=== PATIENT | female | born 1945 | race Caucasian/White ===

== ENCOUNTER → 2017-05-31 | Outpatient (CLI) | payer MEDICARE ==
[~2017-05-31] VITALS: Ht 160 cm; Wt 72.6 kg
[~2017-05-31] MED LIST: AMLO1CAP10 PO; APIX5TAB PO; CEPH500C PO; DILT120C80 PO; DILT60TA PO; HYDR25TA9 PO; LIDOCAINE 1% / SOD BICARB 8.4% 20 ML VIAL. IJ ONE; PENI500T PO
[2017-05-31 08:47] LABS: BASO # 0.1 x10^3/uL (0.0-0.2); BASO % 1 % (0-3); EOS % 0 % (0-3); HEMATOCRIT 37.9 % (36.0-47.0); HEMOGLOBIN 12.7 g/dL (12.0-15.5); LYMPH % 10 % (24-48); MEAN CORPUSCULAR HEMOGLOBIN 27 pg (25-35); MEAN CORPUSCULAR HGB CONC 34 g/dL (31-37); MEAN CORPUSCULAR VOLUME 80 fL (79-100); MONO % 7 % (0-9); NEUT % 83 % (31-73); PLATELET COUNT 519 x10^3/uL (140-400); RED BLOOD COUNT 4.72 x10^6/uL (3.50-5.40); WHITE BLOOD COUNT 10.4 x10^3/uL (4.0-11.0)
[2017-05-31 08:50] VITALS: BP 105/68
[2017-05-31 08:56] LABS: PROTHROMBIN TIME PATIENT 12.9 SEC (11.7-14.0)
--- NOTE | 2017-05-31 16:51 | RAD ---
Ultrasound-guided biopsy of mid abdominal subcutaneous mass Indication: Palpable mass, subcutaneous tissues, right midabdomen Comparison study: None Discussion: The risks and benefits of the procedure including but not limited to bleeding, infection, and nondiagnostic biopsy were discussed patient. Informed consent was obtained. Timeout procedure was performed. Limited ultrasound evaluation was performed demonstrating a 15 mm subcutaneous hypoechoic mass in the subcutaneous tissues of the anterior right abdominal wall. 1% lidocaine without epinephrine was administered for local anesthesia. Multiple 18 and 20-gauge core biopsies of this mass were performed and placed in formalin. Manual pressure was held to achieve hemostasis. No immediate complications were identified. A sterile dressing was applied. Impression: Successful ultrasound-guided biopsy of subcutaneous, approximately 15 mm mass in the subcutaneous tissues of the right mid abdomen.
--- NOTE | 2017-06-02 17:58 | PATHOLOGY ---
PATHOLOGY REPORT * * * * * * * * FINAL DIAGNOSIS: Fibroadipose tissue, right abdominal wall mass, needle biopsy: - METASTATIC ADENOCARCINOMA, MODERATELY TO POORLY DIFFERENTIATED. SEE COMMENT. COMMENT: Sections of the right abdominal wall mass needle biopsy reveal fibroadipose tissue containing a malignant epithelial neoplasm. The malignant cells are present in solid nests and show focal acinar formation. The malignant cells have modest amount of pale eosinophilic cytoplasm, and possess enlarged, moderately to focally markedly pleomorphic hyperchromatic nuclei containing prominent nucleoli. Mitotic figures are readily demonstrated. The tumor is associated with a reactive desmoplastic stroma. A panel of immunoperoxidase stains is obtained and yields the following results: Cytokeratin 7: Tumor cells positive Cytokeratin 20: Tumor cells negative CDX2: Tumor cells positive TTF-1: Tumor cells negative BCA-225: Tumor cells positive GCDFP-15: Tumor cells negative The morphologic findings are supportive of the diagnosis of metastatic fufenzhmkr-ec-nagkpd differentiated adenocarcinoma. The immunophenotypic findings, however, are nonspecific. Possible primary sites include breast, pancreaticobiliary and upper gastrointestinal tract, and genitourinary tract. The case is also examined by Dr. Carson and Dr. Suarez, both of whom concur with the diagnosis. (JPM:pit; 06/01/2017) REPORT ELECTRONICALLY SIGNED BY: Andrey Goodman M.D. DATE/TIME: 06/02/2017 17:57 * * * * * * * * GROSS PATHOLOGY: Received in formalin labeled "Ana Drew, right abdominal wall biopsy," are three distinct needle cores of doran soft tissue ranging from 1.0 to 1.2 cm in length, which are submitted entirely in cassette A1. (JPM; 05/31/17) INITIAL CPT CODE(S): A; 97448, 00116, 97411, 86347, 56495, 94217, 39021 Professional services performed by [facility] at [facility] [address] [place] [address] Technical services performed by [facility] at [address] [place] [address], [address], [place] [address]. SPECIMEN(S) RECEIVED: A.Right abdominal wall mass CLINICAL HISTORY: Right abdominal wall mass, superficial PATIENT: ANA DREW /AGE: 12 1945 (Age: 71) PATIENT #: [id number] ALT CASE #: SPECIMEN COLLECTION DATE: 05/31/2017 SPECIMEN RECEIVED DATE: 05/31/2017 [facility] - [address] [place] [address] - PHONE: [phone] * * * END OF REPORT * * *
== END | disposition home or self-care (01) ==
LOC: INTRAD 08:00
PROVIDERS: ATTEND Internal Medicine Hematology & Oncology
DX: C44.509 Unspecified malignant neoplasm of skin of other part of trunk (principal); I48.91 Unspecified atrial fibrillation; I10 Essential (primary) hypertension; F17.200 Nicotine dependence, unspecified, uncomplicated
CPT/HCPCS: 20206; 36415; 76942; 85027; 85610; C1887; 88305; 88341; 88342

== ENCOUNTER 2017-06-02 11:30 | Inpatient (IN) | payer MEDICARE ==
[~2017-06-02] VITALS: Ht 160 cm; Wt 72.6 kg
[~2017-06-02 11:30] MED LIST changes: -DILT60TA PO; -LIDOCAINE 1% / SOD BICARB 8.4% 20 ML VIAL. IJ ONE
--- NOTE | 2017-06-02 12:10 | RAD ---
Indication shortness of breath and congestion. A single view of the chest was obtained. No prior imaging of the chest is available. The heart and pulmonary vessels are unremarkable. There is diffuse increased density overlying the left upper chest. The etiology is unclear. A soft tissue process in the chest wall could account for the finding. A lung parenchymal process is not excluded. There is somewhat poor definition of the left hilum. A CT examination of the chest should be considered. The right lung is clear. There is no significant pleural fluid. There is no pneumothorax. IMPRESSION: Probable pathology in the left hemithorax. A CT examination of the chest should be considered
--- NOTE | 2017-06-02 12:11 | PHYS DOC ---
Past Medical History Past Medical History: A-Fib Adult General Chief Complaint Chief Complaint: SHORTNESS OF BREATH HPI HPI Patient is a 71 year old female who presents with shortness of breath. Patient was sent from her primary care doctor's office that she is appearing short of breath. Patient states it's started today, she's had increasing symptoms of the last several weeks. She was recently diagnosed with A. fib, placed on medication and is also taking eloquist, she denies any associated chest pain with her shortness of breath, she has had a cough, no fevers. She is a daily smoker, no diagnosis of COPD. She does not chronically wear oxygen. She does not know of any orthopnea. She is also recently had biopsies performed for lumps in her right side. She denies any history of PE or DVT. No relieving factors other than rest, exacerbating factors are exerting herself. Deputy City Clerk is Dr. Shelton, PCP is in [place] Review of Systems Review of Systems Constitutional: Denies fever or chills [] Eyes: Denies change in visual acuity, redness, or eye pain [] HENT: Denies nasal congestion or sore throat [] Respiratory: per history of present illness Cardiovascular: No additional information not addressed in HPI [] GI: Denies abdominal pain, nausea, vomiting, bloody stools or diarrhea [] : Denies dysuria or hematuria [] Musculoskeletal: Denies back pain or joint pain [] Integument: Denies rash or skin lesions [] Neurologic: Denies headache, focal weakness or sensory changes [] Endocrine: Denies polyuria or polydipsia [] Allergies Allergies Allergies Coded Allergies Type Severity Reaction Last Updated Verified No Known Drug Allergies 05/31/17 No Physical Exam Physical Exam Constitutional: Well developed, well nourished, mild resp distress, non-toxic appearance. [] HENT: Normocephalic, atraumatic, bilateral external ears normal, oropharynx moist, no oral exudates, nose normal. [] Eyes: PERRLA, EOMI, conjunctiva normal, no discharge. [] Neck: Normal range of motion, no tenderness, supple, no stridor. [] Cardiovascular:Heart rate regular with irregular rhythm, no murmur [] Lungs & Thorax: Bilateral breath sounds, bibasilar crackles, moderate air movement, no wheeze Abdomen: soft, no tenderness, no masses, no pulsatile masses. [] Skin: Warm, dry, no erythema, no rash. [] Back: No tenderness, no CVA tenderness. [] Extremities: No tenderness, no cyanosis, no clubbing, ROM intact, trace bilateral lower extremity edema with neg homens bilaterally Neurologic: Alert and oriented X 3, normal motor function, normal sensory function, no focal deficits noted. [] Current Patient Data Vital Signs Vital Signs Date Time Temp Pulse Resp B/P (MAP) Pulse Ox O2 Delivery O2 Flow Rate FiO2 06/02/17 12:44 98 90/60 (70) 89 Nasal Cannula 2.0 06/02/17 11:58 98.2 22 98.2 Lab Values Laboratory Tests Test 06/02/17 12:05 06/02/17 12:12 O2 Saturation 92 % (92-99) Arterial Blood pH 7.47 (7.35-7.45) H Arterial Blood pCO2 at Patient Temp 37 mmHg (35-46) Arterial Blood pO2 at Patient Temp 61 mmHg (65-108) L Arterial Blood HCO3 27 mmol/L (21-28) Arterial Blood Base Excess 3 mmol/L (-3-3) FiO2 21.0 White Blood Count 11.8 x10^3/uL (4.0-11.0) H Red Blood Count 4.67 x10^6/uL (3.50-5.40) Hemoglobin 12.4 g/dL (12.0-15.5) Hematocrit 37.4 % (36.0-47.0) Mean Corpuscular Volume 80 fL (79-100) Mean Corpuscular Hemoglobin 27 pg (25-35) Mean Corpuscular Hemoglobin Concent 33 g/dL (31-37) Red Cell Distribution Width 15.9 % (11.5-14.5) H Platelet Count 511 x10^3/uL (140-400) H Neutrophils (%) (Auto) 83 % (31-73) H Lymphocytes (%) (Auto) 12 % (24-48) L Monocytes (%) (Auto) 5 % (0-9) Eosinophils (%) (Auto) 0 % (0-3) Basophils (%) (Auto) 0 % (0-3) Neutrophils # (Auto) 9.7 x10^3uL (1.8-7.7) H Lymphocytes # (Auto) 1.4 x10^3/uL (1.0-4.8) Monocytes # (Auto) 0.5 x10^3/uL (0.0-1.1) Eosinophils # (Auto) 0.0 x10^3/uL (0.0-0.7) Basophils # (Auto) 0.1 x10^3/uL (0.0-0.2) Prothrombin Time 15.3 SEC (11.7-14.0) H Prothrombin Time INR 1.3 (0.8-1.1) H Sodium Level 134 mmol/L (136-145) L Potassium Level 3.6 mmol/L (3.5-5.1) Chloride Level 95 mmol/L (98-107) L Carbon Dioxide Level 27 mmol/L (21-32) Anion Gap 12 (6-14) Blood Urea Nitrogen 12 mg/dL (7-20) Creatinine 0.7 mg/dL (0.6-1.0) Estimated GFR (Cockcroft-Gault) 82.3 BUN/Creatinine Ratio 17 (6-20) Glucose Level 118 mg/dL (70-99) H Calcium Level 8.5 mg/dL (8.5-10.1) Magnesium Level 2.1 mg/dL (1.8-2.4) Total Bilirubin 0.4 mg/dL (0.2-1.0) Aspartate Amino Transferase (AST) 13 U/L (15-37) L Alanine Aminotransferase (ALT) 17 U/L (14-59) Alkaline Phosphatase 109 U/L (46-116) Troponin I Quantitative < 0.017 ng/mL (0.000-0.055) IM-Ces-X-Type Natriuretic Peptide 373 pg/mL (0-124) H Total Protein 7.0 g/dL (6.4-8.2) Albumin 2.7 g/dL (3.4-5.0) L Albumin/Globulin Ratio 0.6 (1.0-1.7) L Laboratory Tests 06/02/17 12:12 Laboratory Tests 06/02/17 12:12 EKG EKG 90 bpm, A. fib, normal axis, normal intervals, no ST elevation or depression appreciated, interpreted by me [] Radiology/Procedures Radiology/Procedures CTA: IMPRESSION: Marked consolidation or infiltrative mass (neoplastic) in the left upper lobe. The latter is favored. There is associated hilar and mediastinal adenopathy. There is significant narrowing of an upper lobe bronchus. Bronchoscopy should be considered for additional evaluation. Indeterminate nodules and opacities in the right lung. Left adrenal mass. Metastatic disease should be considered. [] Course & Med Decision Making Course & Med Decision Making Pertinent Labs and Imaging studies reviewed. (See chart for details) Pt placed on O2 for hypoxia. CXR indicates mass and suggests CT. Performed and findings reviewed and explained to pt and family of neoplasm vs infectious. IV levaquin given. Pt admitted Dr. Payne, consult for pulm and cards placed. Dragon Disclaimer Dragon Disclaimer This electronic medical record was generated, in whole or in part, using a voice recognition dictation system. Departure Departure Impression: Primary Impression: Acute respiratory failure Additional Impression: Pulmonary mass Disposition: ADMITTED INPATIENT Admitting Physician: Rachel Payne Condition: STABLE Referrals: ALAYNA REGAN (PCP) Problem Qualifiers MARY PHOENIX MD Jun 02, 2017 12:11
[2017-06-02 12:27] LABS: BASO # 0.1 x10^3/uL (0.0-0.2); BASO % 0 % (0-3); EOS % 0 % (0-3); HEMATOCRIT 37.4 % (36.0-47.0); HEMOGLOBIN 12.4 g/dL (12.0-15.5); LYMPH # 1.4 x10^3/uL (1.0-4.8); LYMPH % 12 % (24-48); MEAN CORPUSCULAR HEMOGLOBIN 27 pg (25-35); MEAN CORPUSCULAR HGB CONC 33 g/dL (31-37); MEAN CORPUSCULAR VOLUME 80 fL (79-100); MONO % 5 % (0-9); NEUT % 83 % (31-73); PLATELET COUNT 511 x10^3/uL (140-400); RED BLOOD COUNT 4.67 x10^6/uL (3.50-5.40); RED CELL DISTRIBUTION WIDTH 15.9 % (11.5-14.5); WHITE BLOOD COUNT 11.8 x10^3/uL (4.0-11.0)
[2017-06-02 12:35] LABS: INR 1.3 (0.8-1.1); PROTHROMBIN TIME PATIENT 15.3 SEC (11.7-14.0)
[2017-06-02 12:37] LABS: HCO3 ABG 27 mmol/L (21-28); PCO2 ABG 37 mmHg (35-46); PH ABG 7.47 (7.35-7.45); PO2 ABG 61 mmHg (65-108); SAT O2 ABG 92 % (92-99)
[2017-06-02 12:45] LABS: CALCIUM 8.5 mg/dL (8.5-10.1); CREATININE 0.7 mg/dL (0.6-1.0); GFR 82.3; POTASSIUM 3.6 mmol/L (3.5-5.1)
[2017-06-02 12:51] LABS: ALBUMIN 2.7 g/dL (3.4-5.0); ALBUMIN/GLOBULIN RATIO 0.6 (1.0-1.7); MAGNESIUM 2.1 mg/dL (1.8-2.4); TOTAL BILIRUBIN 0.4 mg/dL (0.2-1.0)
[2017-06-02] MEDS ORDERED: IOHEXOL 300 MG/ML 75 ML VIAL IV ONE (13:00)
[2017-06-02] MEDS ORDERED: CONTRAST GIVEN MC PRN (13:00)
--- NOTE | 2017-06-02 13:14 | EKG ---
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
--- NOTE | 2017-06-02 13:40 | RAD ---
Indication cough and shortness of air. Abnormal chest x-ray. Contrast imaging through the chest was performed. Approximately 75 cc of Omnipaque [address] imaging of the chest is available. The thoracic aorta appears unremarkable. There is a large soft tissue process in the left upper lobe measuring approximately 7.7 cm in width x 6 cm deep x 8 cm in length. There are occasional vessels running through the soft tissue process. There is marked narrowing of an upper lobe bronchus. The etiology is not certain. It is atypical for an infectious process and malignancy is felt most likely. Bronchoscopy is suggested for additional valuation. There is right hilar adenopathy and some adenopathy at the aorticopulmonary window. A component of subcarinal adenopathy is also likely. There is a parenchymal opacity in the right upper lobe, image 48 series 3 which is indeterminate and could be infection scar or neoplastic disease. Occasional smaller nodules are noted in the right lung which are indeterminant. There is no pleural fluid in either lung. There is no evidence of pulmonary embolus. Imaging through the upper abdomen demonstrates a lobulated mass associated with the left adrenal gland measuring approximately 2.5 cm in greatest dimension. Given the findings in the chest metastatic disease should be considered. There is a low-density 3 cm mass in the left lobe of the liver compatible with a cyst. Acute finding in the upper abdomen is not seen. IMPRESSION: Marked consolidation or infiltrative mass (neoplastic) in the left upper lobe. The latter is favored. There is associated hilar and mediastinal adenopathy. There is significant narrowing of an upper lobe bronchus. Bronchoscopy should be considered for additional evaluation. Indeterminate nodules and opacities in the right lung. Left adrenal mass. Metastatic disease should be considered. PQRS Compliance Statement: One or more of the following individualized dose reduction techniques were utilized for this examination: 1. Automated exposure control 2. Adjustment of the mA and/or kV according to patient size 3. Use of iterative reconstruction technique
[2017-06-02] MEDS ORDERED: levOFLOXacin PER PHARMACY. MC PRN (13:45)
[2017-06-02] MEDS ORDERED: ONDANSETRON PF 4 MG/2 ML VIAL. IV PRN (13:45)
[2017-06-02 15:00] VITALS: BP 102/62
[2017-06-02] MEDS ORDERED: APIX5TAB PO (15:24)
[2017-06-02] MEDS ORDERED: DILT60TA PO (15:24)
--- NOTE | 2017-06-02 16:11 | PDOC2 ---
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 Reports of SOA in the few weeks worse in the last 3 days and more so with exertion. Complains of right chest achy pain and worse with cough. She was also noted with AFIB per her PCP and was referred to our clinic yesterday for further evaluation. For the most part her AFIB appears to be controlled and was placed on cardizem and eliquis. Presently she is on AFIB but rate controlled. In addition to her SOA she does have intermittent palpitations. Deneis any dizziness, nausea or vomiting. Denies any orthopnea or PND. She has never been diagnosed with COPD but she is a chronic tobacco user in which her intake increased to 2 ppd since her last 02/2017. She is not depressed and has a supportive family. Denies any prior VTE, CAD, syncope, falls or any recent injury. PAST MEDICAL HISTORY Cardiovascular: HTN Hepatobiliary: No pertinent hx Psych: No pertinent hx Musculoskeletal: Osteoarthritis Rheumatologic: No pertinent hx Infectious disease: No pertinent hx ENT: Other (tooth abscess) Renal/: No pertinent hx Endocrine: No pertinent hx Dermatology: Other (right abdominal cyst) PAST SURGICAL HISTORY Past Surgical History: Other (right abdominal bx 1 wk ago; wisdome tooth extraction) FAMILY HISTORY Family History noncontributory SOCIAL HISTORY Smoke: 2 packs per day (>50 yrs) ALCOHOL: none Drugs: None Lives: Alone CURRENT MEDICATIONS CURRENT MEDICATIONS Current Medications Medications (Trade) Dose Ordered Sig/Chandrakant Route PRN Reason Start Time Stop Time Status Last Admin Dose Admin Iohexol (Omnipaque 300 Mg/ml) 75 ml 1X ONCE IV 06/02/17 13:00 06/02/17 13:01 DC 06/02/17 13:12 Levofloxacin/ Dextrose 100 ml @ 100 mls/hr Q24H IV 06/02/17 14:00 06/02/17 14:26 ALLERGIES ALLERGIES: Coded Allergies: No Known Drug Allergies (Unverified , 05/31/17) ROS Review of System 14 point ROS evaluated with pertinent positives noted per HPI PHYSICAL EXAM General: Alert, Oriented X3, Cooperative, No acute distress HEENT: Atraumatic, Mucous membr. moist/pink Lungs: Clear to auscultation, Normal air movement Heart: Normal S1, Normal S2, Other (2/6 systolic murmur to LLS border; AFIB rate controlled) Abdomen: Soft, No tenderness Extremities: No cyanosis, No edema Skin: No breakdown, No significant lesion Neuro: Normal speech, Sensation intact Psych/Mental Status: Mental status NL, Mood NL MUSCULOSKELETAL: Osteoarthritic changes both hands VITALS VITALS Vital Signs Date Time Temp Pulse Resp B/P (MAP) Pulse Ox O2 Delivery O2 Flow Rate FiO2 06/02/17 14:14 88 98/66 (77) 06/02/17 13:44 21 Nasal Cannula 2.0 06/02/17 12:44 89 06/02/17 11:58 98.2 98.2 LABS Lab: Laboratory Tests Test 06/02/17 12:05 06/02/17 12:12 O2 Saturation 92 % (92-99) Arterial Blood pH 7.47 (7.35-7.45) Arterial Blood pCO2 at Patient Temp 37 mmHg (35-46) Arterial Blood pO2 at Patient Temp 61 mmHg (65-108) Arterial Blood HCO3 27 mmol/L (21-28) Arterial Blood Base Excess 3 mmol/L (-3-3) FiO2 21.0 White Blood Count 11.8 x10^3/uL (4.0-11.0) Red Blood Count 4.67 x10^6/uL (3.50-5.40) Hemoglobin 12.4 g/dL (12.0-15.5) Hematocrit 37.4 % (36.0-47.0) Mean Corpuscular Volume 80 fL (79-100) Mean Corpuscular Hemoglobin 27 pg (25-35) Mean Corpuscular Hemoglobin Concent 33 g/dL (31-37) Red Cell Distribution Width 15.9 % (11.5-14.5) Platelet Count 511 x10^3/uL (140-400) Neutrophils (%) (Auto) 83 % (31-73) Lymphocytes (%) (Auto) 12 % (24-48) Monocytes (%) (Auto) 5 % (0-9) Eosinophils (%) (Auto) 0 % (0-3) Basophils (%) (Auto) 0 % (0-3) Neutrophils # (Auto) 9.7 x10^3uL (1.8-7.7) Lymphocytes # (Auto) 1.4 x10^3/uL (1.0-4.8) Monocytes # (Auto) 0.5 x10^3/uL (0.0-1.1) Eosinophils # (Auto) 0.0 x10^3/uL (0.0-0.7) Basophils # (Auto) 0.1 x10^3/uL (0.0-0.2) Prothrombin Time 15.3 SEC (11.7-14.0) Prothromb Time International Ratio 1.3 (0.8-1.1) Sodium Level 134 mmol/L (136-145) Potassium Level 3.6 mmol/L (3.5-5.1) Chloride Level 95 mmol/L (98-107) Carbon Dioxide Level 27 mmol/L (21-32) Anion Gap 12 (6-14) Blood Urea Nitrogen 12 mg/dL (7-20) Creatinine 0.7 mg/dL (0.6-1.0) Estimated GFR (Cockcroft-Gault) 82.3 BUN/Creatinine Ratio 17 (6-20) Glucose Level 118 mg/dL (70-99) Calcium Level 8.5 mg/dL (8.5-10.1) Magnesium Level 2.1 mg/dL (1.8-2.4) Total Bilirubin 0.4 mg/dL (0.2-1.0) Aspartate Amino Transf (AST/SGOT) 13 U/L (15-37) Alanine Aminotransferase (ALT/SGPT) 17 U/L (14-59) Alkaline Phosphatase 109 U/L (46-116) Troponin I Quantitative < 0.017 ng/mL (0.000-0.055) UL-Zky-M-Type Natriuretic Peptide 373 pg/mL (0-124) Total Protein 7.0 g/dL (6.4-8.2) Albumin 2.7 g/dL (3.4-5.0) Albumin/Globulin Ratio 0.6 (1.0-1.7) ASSESSMENT/PLAN ASSESSMENT/PLAN 1. Atypical CP: duplicated with cough to right sternal region. Likely r/t to #2 2. Left lung mass with possible metastasis: right lung pulmonary nodules.with hilar and mediastinal adenopathy and left adrenal mass 3. New onset AFIB/atrial flutter: rate controlled 4. S/P right abdominal Bx: done this wk, result pending done by Dr. Acosta. 5. HTN: BP at low end 6. Tooth abscess: on PCN for it, supposed to have been seen by her dentist today 7. Heavy tobaccoism with likely COPD: 2ppd Recommendations 1. Will place on ASA. Hold eliquis in anticipation of bronchoscopy/biopsy 2. Start IV fluids 3. Hold antiHTN. Will resume cardizem once BP is more adequate. 4. TSH, and TTE. 5. Pulmonary consult pending Problems: TAI GONZALEZ MD 06/02/17 1631: CARDIAC CONSULT ALLERGIES ALLERGIES: Coded Allergies: No Known Drug Allergies (Unverified , 05/31/17) ASSESSMENT/PLAN ASSESSMENT/PLAN Patient seen and examined. 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 Recently diagnosed atrial fibrillation, rate well controlled. Continue Cardizem. Hold Eliquis for possible biopsy of left lung mass. Chest pain atypical and most probably pleuritic. Check 2-D echo to assess LV systolic function and rule out wall motion abnormalities. Thank you for your consultation. Problems: DEUCE URIOSTEGUI APRN Jun 02, 2017 16:11 TAI GONZALEZ MD Jun 02, 2017 16:31
[2017-06-02] MEDS ORDERED: ZOLPIDEM 5 MG TABLET. PO PRN (16:45)
[2017-06-02] MEDS ORDERED: NICOTINE POLACRILEX 2MG GUM PACKAGE of 12. BC PRN (16:45)
[2017-06-02] MEDS ORDERED: DOCUSATE SODIUM 100 MG CAPSULE. PO PRN (16:45)
--- NOTE | 2017-06-02 16:46 | PDOC1 ---
History and Physical Date of Admission Date of Admission DATE: 06/02/17 TIME: 16:41 Identification/Chief Complaint Chief Complaint dyspnea and cough Problems: Source Source: Chart review, Patient History of Present Illness History of Present Illness Ms. Arroyo, is a pleasant 71 yo female admitted for dyspnea on exertion. Worsening over days, with cough. She is a longtime smoker, has history of afib, but is otherwise very active and in good health She had 40 lbs weight loss this year, mostly intentional, then some after her , and she has had poor diet since February during her grieving process. Minimal chest pain on right, has been compliant with meds, and had felt well until this week Past Medical History Cardiovascular: HTN Hepatobiliary: No pertinent hx Psych: No pertinent hx Musculoskeletal: Osteoarthritis Rheumatologic: No pertinent hx Infectious disease: No pertinent hx ENT: Other (tooth abscess) Renal/: No pertinent hx Endocrine: No pertinent hx Dermatology: Other (right abdominal cyst) Past Surgical History Past Surgical History: Other (right abdominal bx 1 wk ago; wisdome tooth extraction) Family History Family History: No Significant Social History Smoke: <1 pack per day (>50 yrs) ALCOHOL: none Drugs: None Current Problem List Problem List Problems Medical Problems: (1) Acute respiratory failure Status: Acute (2) Pulmonary mass Status: Acute Problems: Current Medications Current Medications Current Medications Iohexol (Omnipaque 300 Mg/ml) 75 ml 1X ONCE IV Last administered on 06/02/17 13:12; Start 06/02/17 at 13:00; Stop 06/02/17 at 13:01; Status DC Info (Do NOT chart on this entry -- for MONITORING) 1 each PRN DAILY PRN MC SEE COMMENTS; Start 06/02/17 at 13:00; Stop 06/04/17 at 12:59 Ondansetron HCl (Zofran) 4 mg PRN Q8HRS PRN IV NAUSEA/VOMITING; Start 06/02/17 at 13:45; Stop 06/03/17 at 13:44 Levofloxacin/ Dextrose (Levaquin Per Pharmacy) 1 each PRN DAILY PRN MC SEE COMMENTS; Start 06/02/17 at 13:45 Levofloxacin/ Dextrose 100 ml @ 100 mls/hr Q24H IV Last administered on 14:26; Start 7/20/17 at 14:00 Aspirin (Ecotrin) 81 mg [id number] PO ; Start 06/02/17 at 17:00 Sodium Chloride 1,000 ml @ 80 mls/hr [id number] IV ; Start 06/02/17 at 16:15 Diltiazem HCl (Cardizem 24hr Cd) 120 mg BID PO ; Start 06/02/17 at 21:00; Stop 06/02/17 at 21:00; Status DC Active Scripts Active Reported Eliquis (Apixaban) 5 Mg Tablet 5 Mg PO BID Diltiazem Hcl Tablet (Diltiazem Hcl) 60 Mg Tablet 120 Mg PO BID Penicillin V Potassium 500 Mg Tablet 1 Tab PO TID Amlodipine-Benazepril 5-20 Mg (Amlodipine Besylate/Benazepril) 1 Each Capsule 1 Cap PO DAILY Hydrochlorothiazide Tablet (Hydrochlorothiazide) 25 Mg Tablet 1 Tab PO DAILY Allergies Allergies: Coded Allergies: No Known Drug Allergies (Unverified , 05/31/17) ROS General: No: Chills, Night Sweats, Fatigue, Malaise, Appetite, Other PSYCHOLOGICAL ROS: No: Anxiety, Behavioral Disorder, Concentration difficultie , Decreased libido, Depression, Disorientation, Hallucinations, Hostility, Irritablity, Memory difficulties, Mood Swings, Obsessive thoughts, Physical abuse, Sexual abuse, Sleep disturbances, Suicidal ideation, Other Eyes: No Blurry vision, No Decreased vision, No Double vision, No Dry eyes, No Excessive tearing, No Eye Pain, No Itchy Eyes, No Loss of vision, No Photophobia , No Scotomata, No Uses contacts, No Uses glasses, No Other HEENT: No: Heacaches, Visual Changes, Hearing change, Nasal congestion, Nasal discharge, Oral lesions, Sinus pain, Sore Throat, Epistaxis, Sneezing, Snoring, Tinnitus, Vertigo, Vocal changes, Other Respiratory: YES: Cough, SOB with excertion, No: Hemoptysis, Orthopnea, Pleuritic Pain, Shortness of breath, Sputum Changes, Stridor, Tachypnea, Wheezing, Other Cardiovascular: yes Chest Pain, No Palpitations, No Orthopnea, No Paroxysmal Noc. Dyspnea, No Edema, No Lt Headedness, No Other Gastrointestinal: No Nausea, No Vomiting, No Abdominal Pain, No Diarrhea, No Constipation, No Melena, No Hematochezia, No Other Genitourinary: No Dysuria, No Frequency, No Incontinence, No Hematuria, No Retention, No Discharge, No Urgency, No Pain, No Flank Pain, No Other, No , No , No , No , No , No , No Musculoskeletal: No Gait Disturbance, No Joint Pain, No Joint Stiffness, No Joint Swelling, No Muscle Pain, No Muscular Weakness, No Pain In:, No Swelling In:, No Other Neurological: No Behavorial Changes, No Bowel/Bladder ControlChng, No Confusion , No Dizziness, No Gait Disturbance, No Headaches, No Impaired Coord/balance, No Memory Loss, No Numbness/Tingling, No Seizures, No Speech Problems, No Tremors, No Visual Changes, No Weakness, No Other Skin: No Dry Skin, No Eczema, No Hair Changes, No Lumps, No Mole Changes, No Mottling, No Nail Changes, No Pruritus, No Rash, No Skin Lesion Changes, No Other, No Acne Physical Exam General: Alert, Oriented X3, No acute distress HEENT: Atraumatic, PERRLA, Mucous membr. moist/pink Lungs: Clear to auscultation, Normal air movement Heart: no gallops, no murmurs Abdomen: Normal bowel sounds, Soft Rectal Exam: not examined Extremities: No clubbing, No edema, Normal pulses Skin: No rashes, No breakdown, No significant lesion Neuro: Normal gait, Normal tone, Sensation intact, Cranial nerves 3-12 NL Psych/Mental Status: Mood NL Vitals Vitals Vital Signs Date Time Temp Pulse Resp B/P (MAP) Pulse Ox O2 Delivery O2 Flow Rate FiO2 06/02/17 15:00 98.3 84 18 102/62 (75) 94 Nasal Cannula 1.0 98.3 Labs Labs Laboratory Tests Test 06/02/17 12:05 06/02/17 12:12 O2 Saturation 92 % (92-99) Arterial Blood pH 7.47 (7.35-7.45) Arterial Blood pCO2 at Patient Temp 37 mmHg (35-46) Arterial Blood pO2 at Patient Temp 61 mmHg (65-108) Arterial Blood HCO3 27 mmol/L (21-28) Arterial Blood Base Excess 3 mmol/L (-3-3) FiO2 21.0 White Blood Count 11.8 x10^3/uL (4.0-11.0) Red Blood Count 4.67 x10^6/uL (3.50-5.40) Hemoglobin 12.4 g/dL (12.0-15.5) Hematocrit 37.4 % (36.0-47.0) Mean Corpuscular Volume 80 fL (79-100) Mean Corpuscular Hemoglobin 27 pg (25-35) Mean Corpuscular Hemoglobin Concent 33 g/dL (31-37) Red Cell Distribution Width 15.9 % (11.5-14.5) Platelet Count 511 x10^3/uL (140-400) Neutrophils (%) (Auto) 83 % (31-73) Lymphocytes (%) (Auto) 12 % (24-48) Monocytes (%) (Auto) 5 % (0-9) Eosinophils (%) (Auto) 0 % (0-3) Basophils (%) (Auto) 0 % (0-3) Neutrophils # (Auto) 9.7 x10^3uL (1.8-7.7) Lymphocytes # (Auto) 1.4 x10^3/uL (1.0-4.8) Monocytes # (Auto) 0.5 x10^3/uL (0.0-1.1) Eosinophils # (Auto) 0.0 x10^3/uL (0.0-0.7) Basophils # (Auto) 0.1 x10^3/uL (0.0-0.2) Prothrombin Time 15.3 SEC (11.7-14.0) Prothromb Time International Ratio 1.3 (0.8-1.1) Sodium Level 134 mmol/L (136-145) Potassium Level 3.6 mmol/L (3.5-5.1) Chloride Level 95 mmol/L (98-107) Carbon Dioxide Level 27 mmol/L (21-32) Anion Gap 12 (6-14) Blood Urea Nitrogen 12 mg/dL (7-20) Creatinine 0.7 mg/dL (0.6-1.0) Estimated GFR (Cockcroft-Gault) 82.3 BUN/Creatinine Ratio 17 (6-20) Glucose Level 118 mg/dL (70-99) Calcium Level 8.5 mg/dL (8.5-10.1) Magnesium Level 2.1 mg/dL (1.8-2.4) Total Bilirubin 0.4 mg/dL (0.2-1.0) Aspartate Amino Transf (AST/SGOT) 13 U/L (15-37) Alanine Aminotransferase (ALT/SGPT) 17 U/L (14-59) Alkaline Phosphatase 109 U/L (46-116) Troponin I Quantitative < 0.017 ng/mL (0.000-0.055) SN-Xju-U-Type Natriuretic Peptide 373 pg/mL (0-124) Total Protein 7.0 g/dL (6.4-8.2) Albumin 2.7 g/dL (3.4-5.0) Albumin/Globulin Ratio 0.6 (1.0-1.7) Laboratory Tests Test 06/02/17 12:05 06/02/17 12:12 O2 Saturation 92 % (92-99) Arterial Blood pH 7.47 (7.35-7.45) Arterial Blood pCO2 at Patient Temp 37 mmHg (35-46) Arterial Blood pO2 at Patient Temp 61 mmHg (65-108) Arterial Blood HCO3 27 mmol/L (21-28) Arterial Blood Base Excess 3 mmol/L (-3-3) FiO2 21.0 White Blood Count 11.8 x10^3/uL (4.0-11.0) Red Blood Count 4.67 x10^6/uL (3.50-5.40) Hemoglobin 12.4 g/dL (12.0-15.5) Hematocrit 37.4 % (36.0-47.0) Mean Corpuscular Volume 80 fL (79-100) Mean Corpuscular Hemoglobin 27 pg (25-35) Mean Corpuscular Hemoglobin Concent 33 g/dL (31-37) Red Cell Distribution Width 15.9 % (11.5-14.5) Platelet Count 511 x10^3/uL (140-400) Neutrophils (%) (Auto) 83 % (31-73) Lymphocytes (%) (Auto) 12 % (24-48) Monocytes (%) (Auto) 5 % (0-9) Eosinophils (%) (Auto) 0 % (0-3) Basophils (%) (Auto) 0 % (0-3) Neutrophils # (Auto) 9.7 x10^3uL (1.8-7.7) Lymphocytes # (Auto) 1.4 x10^3/uL (1.0-4.8) Monocytes # (Auto) 0.5 x10^3/uL (0.0-1.1) Eosinophils # (Auto) 0.0 x10^3/uL (0.0-0.7) Basophils # (Auto) 0.1 x10^3/uL (0.0-0.2) Prothrombin Time 15.3 SEC (11.7-14.0) Prothromb Time International Ratio 1.3 (0.8-1.1) Sodium Level 134 mmol/L (136-145) Potassium Level 3.6 mmol/L (3.5-5.1) Chloride Level 95 mmol/L (98-107) Carbon Dioxide Level 27 mmol/L (21-32) Anion Gap 12 (6-14) Blood Urea Nitrogen 12 mg/dL (7-20) Creatinine 0.7 mg/dL (0.6-1.0) Estimated GFR (Cockcroft-Gault) 82.3 BUN/Creatinine Ratio 17 (6-20) Glucose Level 118 mg/dL (70-99) Calcium Level 8.5 mg/dL (8.5-10.1) Magnesium Level 2.1 mg/dL (1.8-2.4) Total Bilirubin 0.4 mg/dL (0.2-1.0) Aspartate Amino Transf (AST/SGOT) 13 U/L (15-37) Alanine Aminotransferase (ALT/SGPT) 17 U/L (14-59) Alkaline Phosphatase 109 U/L (46-116) Troponin I Quantitative < 0.017 ng/mL (0.000-0.055) VX-Bqa-Z-Type Natriuretic Peptide 373 pg/mL (0-124) Total Protein 7.0 g/dL (6.4-8.2) Albumin 2.7 g/dL (3.4-5.0) Albumin/Globulin Ratio 0.6 (1.0-1.7) VTE Prophylaxis Ordered VTE Prophylaxis Devices: No (had taken eliquis today) VTE Pharmacological Prophylaxi: Contraindicated Assessment/Plan Assessment/Plan Dyspnea on exertion, new hypoxia afib, rate controlled chest mass, lung mass concerning for malignancy, could be small mass with post-obstruction, Levaquin started, moderate/severe malnutrition tobaccoism, replacement ordered admit SHAYNA MANN MD Jun 02, 2017 16:45
[2017-06-02] MEDS: IV NORMAL SALINE 1000ML BAG 1,000 ML IV SCH (16:49)
[2017-06-02] MEDS: ASPIRIN ENTERIC COATED 81 MG TABLET.DR. PO SCH (16:49)
[2017-06-02] MEDS: guaiFENesin DM 200MG/20MG 10 ML SYRUP PO PRN (16:54)
[2017-06-02] MEDS: NICOTINE 14MG PATCH. TD PRN (16:55)
--- NOTE | 2017-06-02 18:20 | PDOC ---
PULMONARY PROGRESS NOTES Vitals Vital Signs Date Time Temp Pulse Resp B/P (MAP) Pulse Ox O2 Delivery O2 Flow Rate FiO2 06/02/17 15:00 98.3 84 18 102/62 (75) 94 Nasal Cannula 1.0 98.3 Labs Laboratory Tests Test 06/02/17 12:05 06/02/17 12:12 O2 Saturation 92 % (92-99) Arterial Blood pH 7.47 (7.35-7.45) Arterial Blood pCO2 at Patient Temp 37 mmHg (35-46) Arterial Blood pO2 at Patient Temp 61 mmHg (65-108) Arterial Blood HCO3 27 mmol/L (21-28) Arterial Blood Base Excess 3 mmol/L (-3-3) FiO2 21.0 White Blood Count 11.8 x10^3/uL (4.0-11.0) Red Blood Count 4.67 x10^6/uL (3.50-5.40) Hemoglobin 12.4 g/dL (12.0-15.5) Hematocrit 37.4 % (36.0-47.0) Mean Corpuscular Volume 80 fL (79-100) Mean Corpuscular Hemoglobin 27 pg (25-35) Mean Corpuscular Hemoglobin Concent 33 g/dL (31-37) Red Cell Distribution Width 15.9 % (11.5-14.5) Platelet Count 511 x10^3/uL (140-400) Neutrophils (%) (Auto) 83 % (31-73) Lymphocytes (%) (Auto) 12 % (24-48) Monocytes (%) (Auto) 5 % (0-9) Eosinophils (%) (Auto) 0 % (0-3) Basophils (%) (Auto) 0 % (0-3) Neutrophils # (Auto) 9.7 x10^3uL (1.8-7.7) Lymphocytes # (Auto) 1.4 x10^3/uL (1.0-4.8) Monocytes # (Auto) 0.5 x10^3/uL (0.0-1.1) Eosinophils # (Auto) 0.0 x10^3/uL (0.0-0.7) Basophils # (Auto) 0.1 x10^3/uL (0.0-0.2) Prothrombin Time 15.3 SEC (11.7-14.0) Prothromb Time International Ratio 1.3 (0.8-1.1) Sodium Level 134 mmol/L (136-145) Potassium Level 3.6 mmol/L (3.5-5.1) Chloride Level 95 mmol/L (98-107) Carbon Dioxide Level 27 mmol/L (21-32) Anion Gap 12 (6-14) Blood Urea Nitrogen 12 mg/dL (7-20) Creatinine 0.7 mg/dL (0.6-1.0) Estimated GFR (Cockcroft-Gault) 82.3 BUN/Creatinine Ratio 17 (6-20) Glucose Level 118 mg/dL (70-99) Calcium Level 8.5 mg/dL (8.5-10.1) Magnesium Level 2.1 mg/dL (1.8-2.4) Total Bilirubin 0.4 mg/dL (0.2-1.0) Aspartate Amino Transf (AST/SGOT) 13 U/L (15-37) Alanine Aminotransferase (ALT/SGPT) 17 U/L (14-59) Alkaline Phosphatase 109 U/L (46-116) Troponin I Quantitative < 0.017 ng/mL (0.000-0.055) BI-Wrn-X-Type Natriuretic Peptide 373 pg/mL (0-124) Total Protein 7.0 g/dL (6.4-8.2) Albumin 2.7 g/dL (3.4-5.0) Albumin/Globulin Ratio 0.6 (1.0-1.7) Thyroid Stimulating Hormone (TSH) 1.885 uIU/mL (0.358-3.74) Laboratory Tests Test 06/02/17 12:05 06/02/17 12:12 O2 Saturation 92 % (92-99) Arterial Blood pH 7.47 (7.35-7.45) Arterial Blood pCO2 at Patient Temp 37 mmHg (35-46) Arterial Blood pO2 at Patient Temp 61 mmHg (65-108) Arterial Blood HCO3 27 mmol/L (21-28) Arterial Blood Base Excess 3 mmol/L (-3-3) FiO2 21.0 White Blood Count 11.8 x10^3/uL (4.0-11.0) Red Blood Count 4.67 x10^6/uL (3.50-5.40) Hemoglobin 12.4 g/dL (12.0-15.5) Hematocrit 37.4 % (36.0-47.0) Mean Corpuscular Volume 80 fL (79-100) Mean Corpuscular Hemoglobin 27 pg (25-35) Mean Corpuscular Hemoglobin Concent 33 g/dL (31-37) Red Cell Distribution Width 15.9 % (11.5-14.5) Platelet Count 511 x10^3/uL (140-400) Neutrophils (%) (Auto) 83 % (31-73) Lymphocytes (%) (Auto) 12 % (24-48) Monocytes (%) (Auto) 5 % (0-9) Eosinophils (%) (Auto) 0 % (0-3) Basophils (%) (Auto) 0 % (0-3) Neutrophils # (Auto) 9.7 x10^3uL (1.8-7.7) Lymphocytes # (Auto) 1.4 x10^3/uL (1.0-4.8) Monocytes # (Auto) 0.5 x10^3/uL (0.0-1.1) Eosinophils # (Auto) 0.0 x10^3/uL (0.0-0.7) Basophils # (Auto) 0.1 x10^3/uL (0.0-0.2) Prothrombin Time 15.3 SEC (11.7-14.0) Prothromb Time International Ratio 1.3 (0.8-1.1) Sodium Level 134 mmol/L (136-145) Potassium Level 3.6 mmol/L (3.5-5.1) Chloride Level 95 mmol/L (98-107) Carbon Dioxide Level 27 mmol/L (21-32) Anion Gap 12 (6-14) Blood Urea Nitrogen 12 mg/dL (7-20) Creatinine 0.7 mg/dL (0.6-1.0) Estimated GFR (Cockcroft-Gault) 82.3 BUN/Creatinine Ratio 17 (6-20) Glucose Level 118 mg/dL (70-99) Calcium Level 8.5 mg/dL (8.5-10.1) Magnesium Level 2.1 mg/dL (1.8-2.4) Total Bilirubin 0.4 mg/dL (0.2-1.0) Aspartate Amino Transf (AST/SGOT) 13 U/L (15-37) Alanine Aminotransferase (ALT/SGPT) 17 U/L (14-59) Alkaline Phosphatase 109 U/L (46-116) Troponin I Quantitative < 0.017 ng/mL (0.000-0.055) LU-Htg-R-Type Natriuretic Peptide 373 pg/mL (0-124) Total Protein 7.0 g/dL (6.4-8.2) Albumin 2.7 g/dL (3.4-5.0) Albumin/Globulin Ratio 0.6 (1.0-1.7) Thyroid Stimulating Hormone (TSH) 1.885 uIU/mL (0.358-3.74) Medications Active Scripts Medications Dose Route/Sig Max Daily Dose Days Date Category Eliquis (Apixaban) 5 Mg Tablet 5 Mg PO BID 06/02/17 Reported Diltiazem Hcl Tablet (Diltiazem Hcl) 60 Mg Tablet 120 Mg PO BID 06/02/17 Reported Penicillin V Potassium 500 Mg Tablet 1 Tab PO TID 05/31/17 Reported Amlodipine-Benazepril 5-20 Mg (Amlodipine Besylate/Benazepril) 1 Each Capsule 1 Cap PO DAILY 05/31/17 Reported Hydrochlorothiazide Tablet (Hydrochlorothiazide) 25 Mg Tablet 1 Tab PO DAILY 05/31/17 Reported Impression . CONSULT DICTATED SUSPECT BRONCH CA POST OB PNEUMONIA Plan . HOLD ELIQUIS BRONCH ON TUESDAY CYNTHIA COOPER MD Jun 02, 2017 18:20
[2017-06-02 19:00] VITALS: BP 95/67
[2017-06-02 19:12] VITALS: BP 102/62
[2017-06-02] MEDS: IPRATRPIUM/ALBUTEROL 0.5/2.5MG 3 ML NEBU. NEB SCH (20:19)
[2017-06-02 23:00] VITALS: BP 104/72
[2017-06-03 03:00] VITALS: BP 102/74
[2017-06-03] MEDS: IV NORMAL SALINE 1000ML BAG 1,000 ML IV SCH ×2 (03:26→22:00)
[2017-06-03] MEDS: guaiFENesin DM 200MG/20MG 10 ML SYRUP PO PRN (03:31)
--- NOTE | 2017-06-03 05:57 | ACF ---
Admission Forms Criteria GENERAL ADMISSION CRITERIA (Place 'X' for any and all applicable criteria): Admission is indicated for ANY ONE of the following: [ ]I. Hemodynamic instability as indicated by ANY ONE of the following(1)(2) (3)(4)(5): [ ]a) Vital sign abnormality not readily corrected by appropriate treatment within 12 to 24 hours indicated by ANY ONE of the following: [ ]i) Hypotension [ ]ii) Symptomatic Tachycardia unresponsive to treatment (eg , analgesia, fluids, sedation as indicated) [ ]iii) Orthostatic vital sign changes unresponsive to treatment (eg, fluids) [ ]b) Vital sign abnormality that is severe indicated by ANY ONE of the following: [ ]i) Inadequate perfusion indicated by ANY ONE of the following: [ ]1) Lactic acidosis (greater than 2 mmol/L) [ ]2) New abnormal capillary refill (greater than 3 seconds) [ ]3) Other metabolic acidosis (arterial pH less than 7.35) not otherwise explained [ ]4) Reduced urine output [ ]5) Altered mental status [ ]6) Myocardial Ischemia [ ]v) Mean arterial pressure[A] less than 60 mm Hg [ ]vi) Mean arterial pressure[A] less than 70 mm Hg after 30 minutes of appropriate treatment (eg, fluid resuscitation) [ ]vii) IV inotropic or vasopressor medication required to maintain adequate blood pressure or perfusion [ ]viii) Sustained heart rate greater than 120 beats per minute in adult or child 6 years or older[B]] [ ]II. Hypertension requiring inpatient treatment as indicated by ANY ONE of the following(6)(7)(8): [ ]a) SBP greater than 220 mm Hg or DBP greater than 120 mm Hg despite treatment [ ]b) SBP greater than 140 mm Hg or DBP greater than 100 mm Hg with evidence of acute end organ damage as indicated by ANY ONE of the following: [ ]i) Encephalopathy [ ]ii) Acute renal failure as indicated by new onset of ANY ONE of the following(9)(10)(11)(12)(13): [ ]1) A 3-fold rise in serum creatinine from baseline [ ]2) Serum creatinine greater than 4 mg/dL ( 354 micromoles/L) with acute rise greater than 0.5 mg/dL (44.2 micromoles/L) [ ]3) Reduction of more than 75% in estimated glomerular filtration rate from baseline [ ]4) Estimated glomerular filtration rate less than 35 mL/min/1.73m2 (0.59 mL/sec/1.73m2) in child up to 18 years of age [ ]5) Cessation of urine output indicated by ALL of the following: [ ]A. Adequate volume status [ ]B. Inadequate urine output as indicated by ANY ONE of the following: [ ]a. Urine output less than 0.3 mL/kg/hr for 24 hours [ ]b. Anuria (urine output less than 0.1 mL/kg/hr) for 12 hours [ ]iii) Aortic dissection [ ]iv) Myocardial ischemia [ ]v) Left ventricular heart failure [ ]vi) Retinal hemorrhage [ ]vii) Other significant finding [ ]c) Hypertension in child requiring inpatient treatment as indicated by ALL of the following(14)(15)(16): [ ]i) Outpatient treatment not effective, not available, or not appropriate [ ]ii) SBP or DBP greater than 95th percentile for age [ ]iii) Evidence of acute end organ damage as indicated by ANY ONE of the following: [ ]1) Altered mental status [ ]2) Acute renal failure as indicated by new onset of ANY ONE of the following(9)(10)(11)(12)(13): [ ]A. A 3-fold rise in serum creatinine from baseline [ ]B. Serum creatinine greater than 4 mg/dL (354 micromoles/L) with acute rise greater than 0.5 mg/dL (44.2 micromoles/L) [ ]C. Reduction of more than 75% in estimated glomerular filtration rate from baseline [ ]D. Estimated glomerular filtration rate less than 35 mL/min/1.73m2 (0.59 mL/sec/1.73m2)in child up to 18 years of age [ ]E. Cessation of urine output indicated by ALL of the following: [ ]a. Adequate volume status [ ]b. Inadequate urine output as indicated by ANY ONE of the following: [ ]1) Urine output less than 0.3 mL/kg/hr for 24 hours [ ]2) Anuria (urine output less than 0.1 mL/kg/hr) for 12 hours [ ]3) Severe headache [ ]4) Visual disturbance [ ]5) Retinal hemorrhage [ ]6) Other significant finding [ ]III. Acute cardiac or peripheral ischemia as indicated by ANY ONE of the following: [ ]a) Acute coronary syndrome(17)(18) [ ]b) Acute peripheral ischemia (eg, pulseless, cool, mottled, or cyanotic extremity)(19) [ ]IV. Cardiac arrhythmias or findings of immediate concern indicated by ANY ONE of the following(20)(21): [ ]a) Heart rhythms that are inherently dangerous or unstable indicated by ANY ONE of the following(22)(23)(24): [ ]i) Resuscitated ventricular fibrillation or cardiac arrest [ ]ii) Ventricular escape rhythm [ ]iii) Sustained ventricular tachycardia (30 seconds or more of ventricular rhythm at greater than 100 beats per minute) [ ]iv) Nonsustained ventricular tachycardia and ANY ONE of the following: [ ]1) Suspected cardiac ischemia as cause or consequence of ventricular tachycardia [ ]2) In setting of acute myocarditis [ ]b) Unstable cardiac conduction defects indicated by ANY ONE of the following(24)(25)(26): [ ]i) Type II second-degree atrioventricular block [ ]ii) Third-degree atrioventricular block [ ]iii) New-onset left bundle branch block with suspected myocardial ischemia [ ]c) Any heart rhythm and ANY ONE of the following(22)(23)(27)(28)( 29): [ ] i) Continuous long-term ECG monitoring needed (eg, initiation of drug requiring monitoring for more than 24 hours) [ ] ii) Patient has automatic implanted cardioverter defibrillator that is repeatedly firing, malfunctioning, or in need of immediate adjustment of settings beyond the scope of ambulatory or observation care. [ ]d) Heart rhythms of concern due to ANY ONE of the following: [ ]i) Hypotension [ ]ii) Respiratory distress [ ]iii) Association with other significant symptoms (eg, bradycardia with syncope or ongoing dizziness, supraventricular tachycardia with chest pain) (27)(28) (30) [ ] V. Severe heart failure as indicated by ANY ONE of the following ( 31)(32): [ ]a) Respiratory distress [ ]b) Hypotension [ ]c) Anasarca (refractory to outpatient therapy) [ ]d) Cardiac arrhythmias of immediate concern [ ]e) Myocardial ischemia [X]. Respiratory abnormalities, including ANY ONE of the following(33)(34) (35)(36): [ ]a) Respiratory rate greater than 30 breaths per minute unresponsive to treatment [A] [ ]b) New saturation of arterial oxygen less than 90% [ ]c) New partial pressure of carbon dioxide greater than 44 mm Hg ( 5.9 kPa) [X]d) Supplemental oxygen or respiratory treatments needed that are new or not performable at other levels of care [ ]e) New-onset cyanosis [ ]f) Inability to protect airway [ ]g) Chronic lung disease with severe deterioration (not responsive to emergency and observation care treatment as appropriate) as indicated by ANY ONE of the following(34)(36 ): [ ]i) SaO2 5% below baseline in patient with chronic hypoxemia [ ]ii) New requirement for supplemental oxygen to keep SaO2 at baseline or acceptable level [ ]iii) Required supplemental oxygen performable only in acute inpatient setting [ ]iv) Severe airflow or ventilation abnormalities [ ]v) Previously mobile patient unable to walk between rooms [ ]vi Inability to eat or sleep due to dyspnea [ ]vii) Rapid rate of exacerbation onset [ ]viii) Altered mental status ]VII. Severe airflow or ventilation abnormalities (not responsive to emergency and observation care treatment as appropriate) as indicated by ANY ONE of the following(33)(34)(35)(37): [ ]a) PCO2 greater than 42 mm Hg (5.6 kPa) and pH less than 7.35 (new ) [ ]b) Documented PCO2 increased more than 5 mm Hg (0.7 kPa) from disease baseline [ ]c) Airflow measurements [B] less than 60% of previous best or predicted (eg, peak expiratory flow rate less than 300 L/minute) despite intensive emergent treatment [C] [ ]d) Required respiratory treatments that are performable only in acute inpatient setting [ ]VIII. Impending or actual respiratory arrest ( Also use Respiratory Failure GRG for severe respiratory disease and long-term mechanical ventilation patients) [ ]IX. Neurologic abnormalities, including ANY ONE of the following: [ ]a) New findings that suggest ANY ONE of the following: [ ]i) [employer] infection(38) [ ]ii) Cerebral bleeding, ischemia, or vasospasm(39)(40) [ ]iii) Increased intracranial pressure, hydrocephalus, or cerebral edema(41)(42)(43) [ ]iv) Spinal cord injury(44) [ ]b) Uncontrolled seizures(45) [ ]c) New-onset coma (eg, Gill coma scale score less than 9) or unexplained abnormal mental status (eg, Gill coma scale score less than 14) [D](41)(46)(47) [ ]X. New-onset severe neurologic findings requiring inpatient care; examples include(42)(48)(49): [ ]a) Papilledema [ ]b) Cerebral edema [ ]c) Mass effect on CT scan [ ]XI. Suspected acute intra-abdominal process with peritoneal signs, abdominal mass, or similar findings (50)(51)(52) [ ]XII. Severe physiologic disorder remaining after emergency or observation level care (as appropriate) as indicated by ANY ONE of the following (53): [ ]a) Significant dehydration [ ]b) Diabetic ketoacidosis [ ]c) Hyperglycemic hyperosmolar state (eg, osmolality greater than 320 mOsm/kg (mmol/kg) [ ]d) Hypoglycemia [ ]e) Other (new) acid-base disorder with pH less than 7.35 or greater than 7.5(54) [ ]f) Thyroid storm (55) [ ]g) Myxedema coma (55) [ ]XIII. Abdominal abnormalities with ANY ONE of the following(56)(57): [ ]a) Absent bowel sounds with complete ileus [ ]b) Signs of intestinal obstruction or peritonitis [E] [ ]c) Nausea and vomiting that cannot be controlled with outpatient or observation care [ ]XIV. Acute renal failure as indicated by new onset of ANY ONE of the following(9)(10)(11)(12)(13): [ ]a) A 3-fold rise in serum creatinine from baseline [ ]b) Serum creatinine greater than 4 mg/dL (354 micromoles/L) with acute rise greater than 0.5 mg/dL (44.2 micromoles/L) [ ]c) Reduction of more than 75% in estimated glomerular filtration rate from baseline [ ]d) Estimated glomerular filtration rate less than 35 mL/min/ 1.73m2 (0.59 mL/sec/1.73m2) in child up to 18 years of age [ ]e) Cessation of urine output indicated by ALL of the following: [ ]i) Adequate volume status [ ]ii) Inadequate urine output as indicated by ANY ONE of the following: [ ]1) Urine output less than 0.3 mL/kg/hr for 24 hours [ ]2) Anuria (urine output less than 0.1 mL/kg/hr) for 12 hours [ ]XV. Significant uremic complications as indicated by ANY ONE of the following(58)(59)(60): [ ]a) Outpatient therapy is ineffective or not feasible for ANY ONE of the following: [ ]i) Severe heart failure [ ]ii) Severehypertension [ ]iii) Pleural effusion [ ]iv) Pericarditis or pericardial effusion [ ]b) Cardiac arrhythmias of immediate concern [ ]c) Intractable nausea or vomiting [ ]d) Recurrent seizures [ ]e) Encephalopathy [ ]f) Bleeding abnormalities (eg, platelet dysfunction) with active (eg, gastrointestinal) bleeding [ ]g) Dialysis indicated before long-term access or ambulatory arrangements can be made [ ]h) Significant metabolic or electrolyte abnormalities (eg, severe acidosis or hyperkalemia) [ ]XVI. High fever or other high-risk infection situation as indicated by ANY ONE of the following(61)(62)(63)(64): [ ]a) Outpatient and observation care antimicrobial treatment unavailable, not effective, or not appropriate [ ]b) Documented bacteremia [ ]c) Temperature greater than 40.5 degrees C (104.9 degrees F) ( oral) [ ]d) Temperature greater than 39.5 degrees C (103.1 degrees F) ( oral) or less than 36 degrees C (96.8 degrees F) (rectal) that does not respond to e treatment and observation care [ ] XVII. Temperature less than 95 degrees F (35 degrees C)(rectal)(65) [ ] XVIII. Severe nutritional abnormalities as indicated by ALL of the following (66)(67): [ ]a) Inability to tolerate or establish sufficient oral or other enteral nutrition in outpatient setting [ ]b) Parenteral nutrition regimen need that must be implemented on inpatient basis [ ] XIX. Severe electrolyte abnormalities indicated by ALL of the following(68) (69)(70): [ ]a) Electrolytes and associated findings are not as expected for patient baseline or acceptable treatment effects. [ ]b) Severe abnormalities indicated by ANY ONE of the following: [ ]i) Sodium less than 130 mEq/L (mmol/L) (new) [ ]ii)Sodium less than 135 mEq/L (mmol/L) with ANY ONE of the following: [ ]1) Uncorrectable (to near normal or chronic baseline) after trial of outpatient and emergency treatment [ ]2) Altered mental status [ ]3) Seizures [ ]4) Severe medical etiology requiring inpatient management (eg, heart failure, hypovolemia) [ ]iii) Sodium greater than 155 mEq/L (mmol/L) [ ]iv) Sodium greater than 150 mEq/L (mmol/L) with ANY ONE of the following: [ ]1) Uncorrectable (to near normal or chronic baseline) with outpatient and emergency treatment [ ]2) Altered mental status [ ]3) Seizures [ ]4) Severe medical etiology (eg, hypovolemia, diabetes insipidus) [ ]v) Potassium less than 2.5 mEq/L (mmol/L) despite outpatient and emergency treatment [ ]vi) Potassium less than 3 mEq/L (mmol/L) with ANY ONE of the following: [ ]1) Weakness [ ]2) Cardiac abnormality (eg, arrhythmia, conduction disturbance) [ ]3) Cardiac ischemia [ ]4) Ileus [ ]5) Ongoing medical cause requiring inpatient management (eg, acute renal wasting or SIADH) [ ]6) Other severe symptoms [ ]vii) Potassium greater than 6.5 mEq/L (mmol/L) [ ]viii) Potassium greater than 5 mEq/L (mmol/L) with ANY ONE of the following: [ ]1) Uncorrectable (to near normal or chronic baseline) with outpatient and emergency treatment [ ]2) Severe ECG findings [F] [ ]3) Acute worsening of renal failure (creatinine greater than 2.5 mg/dL (221 micromoles/L) or significant elevation for age and size) [ ]4) Severe weakness [ ]5) Severe medical etiology (eg, hemolysis, infection, drug overdose) [ ]ix) Calcium less than 7 mg/dL (1.75 mmol/L) despite outpatient and emergency treatment (72) [ ]x) Calcium less than 8 mg/dL (2 mmol/L) with significant symptoms or findings; examples include(72): [ ]1) Altered mental status [ ]2) Muscle spasms [ ]3) Seizures [ ]4) Breathing difficulty [ ]5) Cardiac abnormality (eg, arrhythmia or conduction disturbance) [ ]xi) Calcium greater than 14 mg/dL (3.5 mmol/L)(72) [ ]xii) Calcium greater than 12 mg/dL (3 mmol/L) with ANY ONE of the following(72): [ ]1) Uncorrectable (to near normal or chronic baseline) with outpatient and emergency treatment [ ]2) Significant dehydration or hypovolemia as indicated by ALL of the following(70)(73)(74): [ ]A. Not resolved with initial treatments [ ]B. Clinically significant dehydration as indicated by ANY ONE of the following: [ ]a. Vomiting refractory to outpatient treatment (ie, precluding oral rehydration) [ ]b. Inability to drink [ ]c. Hypernatremia or other electrolyte abnormality unable to be corrected with outpatient and emergency treatment [ ]d. Failure to remain hydrated with outpatient therapy [ ]e. Reduced urine output [ ]f. Hypotension [ ]g. Serious cause for dehydration requiring acute hospitalization (eg, bowel obstruction, increased intracranial pressure, infectious cause) [ ]h. Child with ANY ONE of the following(75): [ ]1) Severe abdominal tenderness [ ]2) Adequate care not available at home [ ]3) Severe dehydration ( greater than 9% loss of body weight) [ ]4) Significant symptoms or findings; examples include: [ ]A. Altered mental status [ ]B. Cardiac abnormality (eg, arrhythmia, conduction disturbance) [ ]C. Malignant etiology requiring inpatient treatment [ ]xiii) Phosphorus less than 1 mg/dL (0.32 mmol/L) [ ]xiv) Phosphorus less than 1.5 mg/dL (0.48 mmol/L) with ANY ONE of the following: [ ]1) Patient unresponsive to outpatient and emergency treatment [ ]2) Significant symptoms or findings; examples include: [ ]A. Weakness [ ]B. Altered mental status [ ]C. Breathing difficulty [ ]D. Seizures [ ]E. Rhabdomyolysis [ ]xv) Phosphorus greater than 10 mg/dL (3.2 mmol/L) [ ]xvi) Phosphorus greater than 4.5 mg/dL (1.45 mmol/L) (new) with ANY ONE of the following: [ ]1) Severe medical etiology (eg, crush injury, acute renal failure) [ ]2) Associated hypocalcemia with significant findings; examples include: [ ]A. Neurologic symptoms [ ]B. Altered mental status [ ]C. Muscle spasms [ ]D. Seizures [ ]E. Breathing difficulty [ ]F. Cardiac abnormality (eg, arrhythmia, conduction disturbance) [ ]xvii) Magnesium less than 1 mg/dL (0.41 mmol/L) [ ]xviii) Magnesium less than 1.5 mg/dL (0.62 mmol/L) with ANY ONE of the following: [ ]1) Patient unresponsive to outpatient and emergency treatment [ ]2) Associated hypocalcemia with significant findings; examples include: [ ]A. Altered mental status [ ]B. Muscle spasms [ ]C. Seizures [ ]D. Breathing difficulty [ ]E. Cardiac abnormality (eg, arrhythmia , conduction disturbance) [ ]3) Associated hypokalemia (potassium less than 3 mEq/L (mmol/L)) with risk of arrhythmia [ ]xix) Magnesium greater than 4 mEq/L (2 mmol/L) [ ]xx) Magnesium greater than 2.5 mEq/L (1.25 mmol/L) with significant symptoms or findings; examples include: [ ]1) Weakness [ ]2) Altered mental status [ ]3) Cardiac abnormality (eg, arrhythmia, conduction disturbance) [ ]4) Breathing difficulty [ ]5) Severe medical etiology (eg, renal failure, hypovolemia) [ ]xxi) Uric acid greater than 20 mg/dL (1190 micromoles/L)(76) [ ]xxii) Uric acid greater than 8 mg/dL (476 micromoles/L) with significant symptoms or findings of tumor lysis syndrome; examples include(76): [ ]1) Creatinine greater than 1.5 times upper limit of normal [ ]2) Cardiac abnormality (eg, arrhythmia, conduction disturbance) [ ]3) Seizure [ ]XX. Acute blood loss causing significant abnormality as indicated by ANY ONE of the following(77)(78): [ ]a) Hemoglobin less than 10 g/dL (100 g/L) (not baseline) [ ]b) Hematocrit less than 30% (0.30) (not baseline) [ ]c) Repeat hematocrit decreased more than 2% (0.02) [ ]d) Uncontrolled bleeding [ ]XXI. Severe anemia indicated by ANY ONE of the following(78)(79): [ ]a) Altered mental status [ ]b) Chest pain [ ]c) Exertional dyspnea [ ]d) Syncope [ ]e) Other findings suggesting inadequate perfusion [ ]f) Treatment with transfusion or volume replacement is ineffective at resolving ANY ONE of the following [G]: [ ]i) Tachycardia for age [ ]ii) Orthostatic vital sign changes as indicated by ANY ONE of the following(80): [ ]1) Fall in SBP of 20 mm Hg or more 1 to 3 minutes after patient sits or stands from recumbent position [ ]2) Fall in DBP of 10 mm Hg or more 1 to 3 minutes after patient sits or stands from recumbent position [ ]XXII. High-risk low platelet count as indicated by ANY ONE of the following( 81)(82): [ ]a) Severe or life-threatening bleeding (eg, intracranial, major gastrointestinal, or extensive mucosal bleeding), with any reduced platelet count [ ]b) Platelet count less than 20,000/mm3 (20 x109/L) with any active bleeding [ ]c) Platelet count less than 10,000/mm3 (10 x109/L) with minor purpura or petechiae [ ]d) Platelet count less than 5000/mm3 (5 x109/L) [ ]e) Low platelet count with hemolytic anemia [ ]XXIII. Disseminated intravascular coagulation(77)(83) [ ]XXIV. Severe adverse drug or systemic toxin reaction requiring inpatient treatment; examples include(84)(85): [ ]a) Serotonin syndrome(86) [ ]b) Neuroleptic malignant syndrome(86) [ ]c) Cholinergic syndrome with severe symptoms (eg, bronchorrhea, weakness, mental status changes, seizures) [ ]d) Sympathetic syndrome with severe symptoms (eg, seizures, mental status changes, cardiac dysrhythmias) [ ]e) Anticholinergic syndrome [ ]XXV. Severe pain requiring acute inpatient management as indicated by ALL of the following (87)(88)(89): [ ]a) Continuous or frequent (eg, every 2 to 4 hours) parenteral analgesics required [H] [ ]b) Rapid improvement expected from treatment or acute intervention (eg, surgery, anesthesia procedure) [ ]XXVI.Severe behavioral health issues judged unmanageable at a lower level of care (eg, residential) in a patient who is ANY ONE of the following(91) [ ]a) Acutely suicidal [ ]b) A danger to self (eg, self-mutilating or suicidal behavior) [ ]c) A danger to others (eg, assaultive or homicidal behavior) [ ]d) Incapacitated because of grave disability (eg, inability to provide for self at lower level of care) (92) [ ]XXVII. Inpatient monitoring needed; examples include(1)(3)(87)(93)(94)(95)(96 ): [ ]a) Vital signs, neurologic signs, or vascular checks more frequently than every 4 hours [ ]b) Cardiac or respiratory monitoring beyond the scope (eg, over 24 hours) of observation care [ ]c) Pulmonary artery catheter monitoring [ ]d) Suspected compartment syndrome(97) (98) [ ]e) Cerebral bleeding, hydrocephalus, or vasospasm monitoring [ ]f) Increased intracranial pressure or cerebral edema monitoring [ ]g) monitoring [ ]XXVIII. Treatment requiring inpatient care; examples include: [ ]a) IV fluid to replace significant ongoing losses (greater than 3 L/m2 per day)(53) [ ]b) High concentration oxygen (greater than 40%)(33)(99)(100) [ ]c) Frequent respiratory therapy (more frequently than every 4 hours) to maintain airflow rates greater than 60% of baseline(33)(99)(100) [ ]d) Epidural analgesia(87) [ ]e) IV anticoagulation, vasoactive, or antiarrhythmic medication(19 )(23) [ ]f) Acute thrombolytics (generally require 24 hours of observation )(101)(102) [ ]XXIX. Emergency procedures needed; examples include: [ ]a) Emergency inpatient surgery [ ]b) Temporary pacemaker placement(103) [ ]c) Chest tube placement with active evacuation (eg, suction, drainage)(104) [ ]d) Emergent cardioversion(105) [ ]e) Emergent cardiac or vascular procedures (eg, cardiac catheterization, angioplasty) (17)(18) [ ]f) Emergent dialysis access placement and institution(10)(106) [ ]g) Emergent pericardiocentesis(107) [ ]h) Emergent plasmapheresis or leukapheresis(83) [ ]i) Emergent tracheostomy The original [employer] content created by [employer] has been revised. The portions of the content which have been revised are identified through the use of italic text or in bold, and [email or web address] has neither reviewed nor approved the modified material. All other unmodified content is copyright [employer]. Please see references footnoted in the original [facility] edition 2016 Admission Criteria Met?: Yes DASH ARGUELLES Jun 03, 2017 05:57
--- NOTE | 2017-06-03 06:34 | CONS ---
DATE OF CONSULTATION: 06/02/2017 ATTENDING PHYSICIAN: Rachel Payne M.D. REASON FOR CONSULTATION: The patient is seen in pulmonary consultation at the request of Dr. Payne for abnormal CT of the chest. HISTORY OF PRESENT ILLNESS: The patient is a 71-year-old that has been short of breath now for only 2-3 days. She smokes on a regular basis, does not see a physician for COPD, has never been diagnosed with COPD. Has chronic AFib and sees Dr. Couch, is on Eliquis. The patient presented with increasing shortness of breath. She was evaluated in the Emergency Department and underwent CT scan of the chest with PE protocol. There was no PE. I reviewed the CT. There is a consolidated left upper lobe mass. There was some hilar/mediastinal adenopathy. There was also narrowing of the upper lobe bronchus along with pulmonary artery being encased by some of this mass. There were also nodules on the right. There was a left adrenal mass. The patient denies any hemoptysis. She has lost weight, attributed to diet and recent loss of her . PAST MEDICAL HISTORY: Chronic AFib, undiagnosed COPD and tobacco dependence. ALLERGIES: No known drug allergies. HOME MEDICATIONS: List was reviewed and once again, she was on Eliquis. REVIEW OF SYSTEMS: As indicated above, otherwise the 10-point system was reviewed and negative. FAMILY HISTORY: Mother with lung cancer. PHYSICAL EXAMINATION: GENERAL: The patient appeared to be her stated age. VITAL SIGNS: Stable. O2 saturation currently on 1 liter was 96%. HEENT: Eyes, the sclerae were nonicteric. NECK: Jugular venous distention was not elevated. No lymphadenopathy. CHEST: Full expansion. LUNGS: Coarse breath sounds in the left upper lobe with some rhonchi. CARDIOVASCULAR: Regular rate and rhythm with S1, S2, no S3. ABDOMEN: Soft, nontender, nondistended. EXTREMITIES: No clubbing, cyanosis or edema. NEUROLOGIC: The patient was awake, alert, following commands. A detailed neuro exam was not performed. LABORATORY DATA: White count was slightly elevated. INR was 1.3. Electrolytes were noted. BUN and creatinine normal. Albumin was low at 2.7. Arterial blood gas, pH of 7.47, paCO2 of 37, ____ pO2 of [address] of the chest reviewed. IMPRESSION: 1. Progressive dyspnea secondary to acute exacerbation of chronic obstructive pulmonary disease and postobstructive pneumonia. 2. Abnormal CT of the chest as described above with multiple findings including left upper lobe mass, hilar and mediastinal adenopathy and postobstructive pneumonia. 3. 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 4. Chronic atrial fibrillation, on anticoagulation. 5. Malnutrition, present upon admission, based upon weight loss and low albumin. 6. Status post right abdominal biopsy done this week ____ pending performed by Dr. Acosta. 7. Tooth abscess. 8. Tobacco dependence. PLAN: 1. We will hold Eliquis for 3 days, proceed with bronchoscopy on Tuesday. 2. Continue current antibiotics. 3. Follow up on the abdominal biopsy. 4. Continue antibiotics. 5. Nebulized treatments. 6. Nicotine replacement. 7. The patient instructed on the importance of discontinuing her tobacco use. 8. Consult dietitian for protein malnutrition. I do appreciate the privilege in sharing in this patient's care. CYNTHIA COOPER MD DR: JIMBO/carmine JOB#: [id number] / [id number]
[2017-06-03 07:00] VITALS: BP 102/73
[2017-06-03] MEDS: IPRATRPIUM/ALBUTEROL 0.5/2.5MG 3 ML NEBU. NEB SCH ×4 (07:29→20:07)
[2017-06-03] MEDS: ASPIRIN ENTERIC COATED 81 MG TABLET.DR. PO SCH (09:19)
[2017-06-03] MEDS: NICOTINE 14MG PATCH. TD PRN (09:21)
[2017-06-03 11:06] VITALS: BP 109/84
--- NOTE | 2017-06-03 11:12 | CARD ---
APPROVED REPORT EXAM: Two-dimensional and M-mode echocardiogram with Doppler and color Doppler. Other Information Quality : Good INDICATION Atrial Fibrillation 2D DIMENSIONS RVDd1.8 (2.9-3.5cm)Left Atrium(2D)2.9 (1.6-4.0cm) IVSd1.3 (0.7-1.1cm)Aortic Root(2D)2.8 (2.0-3.7cm) LVDd3.4 (3.9-5.9cm)LVOT Diameter2.0 (1.8-2.4cm) PWd1.1 (0.7-1.1cm)LVDs2.3 (2.5-4.0cm) FS (%) 32.7 %SV29.1 ml LVEF(%)62.4 (>50%) Aortic Valve AoV Peak Cezar.156.4cm/sAoV VTI24.4cm AO Peak GR.9.8mmHgLVOT Peak Cezar.112.4cm/s LVOT VTI 18.24cmAO Mean GR.5mmHg AYDEN (VMAX)2.20rn3XUU (VTI)2.30cm2 Mitral Valve MV E Oacnsege695.4cm/sMV DECEL [id number] MV PNZ96akLGK (PHT)5.31cm2 TDI E/Lateral E'16.8E/Medial E'12.3 Tricuspid Valve TR P. Fidddazm371xl/sRAP [id number] TR Peak Gr.43iiFnDVDC59pfId LEFT VENTRICLE The left ventricle is normal size. There is mild concentric left ventricular hypertrophy. The left ve ntricular systolic function is normal and the ejection fraction is within normal range. The Ejection Fraction is 60-65%. There is normal LV segmental wall motion. Tissue Doppler imaging reveals mild lef t ventricular diastolic dysfunction. RIGHT VENTRICLE The right ventricle is normal size. The right ventricular systolic function is normal. ATRIA The left atrium size is normal. The right atrium size is normal. The interatrial septum is intact wit h no evidence for an atrial septal defect or patent foramen ovale as noted on 2-D or Doppler imaging. AORTIC VALVE The aortic valve is not well visualized. Doppler and Color Flow revealed no significant aortic regurg itation. There is no significant aortic valvular stenosis. MITRAL VALVE The mitral valve is calcified but opens well. There is no evidence of mitral valve prolapse. There is no mitral valve stenosis. Doppler and Color-flow revealed trace mitral regurgitation. TRICUSPID VALVE The tricuspid valve is normal in structure and function. Doppler and Color Flow revealed mild tricusp id regurgitation. There is mild pulmonary hypertension. The PA pressure was estimated at 36 mmHg. The re is no tricuspid valve stenosis. PULMONIC VALVE Doppler and Color Flow revealed no pulmonic valvular regurgitation. There is no pulmonic valvular curt nosis. GREAT VESSELS The aortic root is normal in size. The ascending aorta is normal in size. The IVC is normal in size a nd collapses >50% with inspiration. PERICARDIAL EFFUSION There is no evidence of significant pericardial effusion. Critical Notification Critical Value: No <Conclusion> The left ventricular systolic function is normal and the ejection fraction is within normal range. Th e Ejection Fraction is 60-65%. There is normal LV segmental wall motion. Doppler and Color Flow revealed mild tricuspid regurgitation. There is mild pulmonary hypertension. T he PA pressure was estimated at 36 mmHg.
[2017-06-03] MEDS ORDERED: CONTRAST GIVEN MC PRN (12:00)
[2017-06-03] MEDS ORDERED: IOHEXOL 300 MG/ML 75 ML VIAL IV ONE (12:00)
--- NOTE | 2017-06-03 12:26 | PDOC2 ---
CONSULT Date of Consult Date of Consult DATE: 06/03/17 TIME: 12:09 Reason for Consult Reason for Consult: adenocarcinoma, unclear primary Referring Physician Referring Physician: Dr. Rachel Payne History of Present Illness Reason for Visit: Ms. Arroyo is a 71-year-old female to female I saw in clinic last week for evaluation of several issues. On April 23, 2017 she had a bilateral screening mammogram performed which which did show a 1.2 cm partially circumscribed mass in the right breast. She also had a chest x-ray completed which revealed a hazy opacity in the left suprahilar region of unclear etiology. Labs in his office on May 19 were notable for a WBC 13.4, platelets 657, ANC 11.0. Her CMP was relatively unremarkable. ESR 55. In January 2016 she also had a WBC of 11.0, hemoglobin 16.3 but platelets were normal in the differential was normal as well. Her unexpectedly in February. Since that time, she has had some obvious depression and lack of appetite. However, prior to his they had intentionally been trying to diet together and she had successfully lost 25 pounds. She has had some chronic chronic ongoing dental issues requiring 3 tooth extractions. She believes she needs another one. She has been placed on antibiotics recently for the dental issues and has a follow-up with her with her dentist next week. She was recently diagnosed with atrial fibrillation and started on Eliquis. She will see a box toe cutter for the first time next week. Also, for the last month, she has noticed a a firm mass on her right abdomen and left arm. She believes that the masses are becoming more firm , though not necessarily growing in size. I sent her for a biopsy of this mass, and late yesterday it returned c/w adenocarcinoma, breast, GI/ primary. I also sent her for a CT chest which revealed an alarming 8 cm VERITO mass, left adrenal mass, hilar and mediastinal adenopathy. She felt acute on chronic RAMIRES and therefore was admitted. Bronch is planned Tuesday after holding of eliquis. Past Medical History Past Medical History HTN, A fib, tob abuse Cardiovascular: HTN Hepatobiliary: No pertinent hx Psych: No pertinent hx Musculoskeletal: Osteoarthritis Rheumatologic: No pertinent hx Infectious disease: No pertinent hx ENT: Other (tooth abscess) Renal/: No pertinent hx Endocrine: No pertinent hx Dermatology: Other (right abdominal cyst) Past Surgical History Past Surgical History None per pt Past Surgical History: Other (right abdominal bx 1 wk ago; wisdome tooth extraction) Family History Family History Mom- breast and lung ca (nonsmoker), dad- prostate ca Family History: No Significant Social History Social History previously 2 PPD x 50 yr, recently cutting down <1 pack per day (>50 yrs) ALCOHOL: none Drugs: None Lives: Alone Current Problem List Problem List Problems Medical Problems: (1) Acute respiratory failure Status: Acute (2) Pulmonary mass Status: Acute Current Medications Current Medications Current Medications Iohexol (Omnipaque 300 Mg/ml) 75 ml 1X ONCE IV Last administered on 06/02/17 13:12; Start 06/02/17 at 13:00; Stop 06/02/17 at 13:01; Status DC Info (Do NOT chart on this entry -- for MONITORING) 1 each PRN DAILY PRN MC SEE COMMENTS; Start 06/02/17 at 13:00; Stop 06/04/17 at 12:59 Ondansetron HCl (Zofran) 4 mg PRN Q8HRS PRN IV NAUSEA/VOMITING; Start 06/02/17 at 13:45; Stop 06/03/17 at 13:44 Levofloxacin/ Dextrose (Levaquin Per Pharmacy) 1 each PRN DAILY PRN MC SEE COMMENTS; Start 06/02/17 at 13:45 Levofloxacin/ Dextrose 100 ml @ 100 mls/hr Q24H IV Last administered on 14:26; Start 06/02/17 at 14:00 Aspirin (Ecotrin) 81 mg [id number] PO Last administered on 06/03/17 09:19; Start 06/02/17 at 17:00 Sodium Chloride 1,000 ml @ 80 mls/hr [id number] IV Last administered on 03:26; Start 06/02/17 at 16:15 Diltiazem HCl (Cardizem 24hr Cd) 120 mg BID PO ; Start 06/02/17 at 21:00; Stop 06/02/17 at 21:00; Status DC Albuterol/ Ipratropium (Duoneb) 3 ml RTQID NEB Last administered on 06/03/17 11:33; Start 06/02/17 at 20:00 Guaifenesin (Robitussin Dm) 10 ml PRN Q6HRS PRN PO COUGH Last administered on 03:31; Start 06/02/17 at 16:45 Nicotine (Nicoderm Cq 14mg) 1 patch PRN DAILY PRN TD SMOKING CESSATION Last administered on 06/03/17t 09:21; Start 06/02/17 at 16:45 Nicotine Polacrilex (Nicorette Gum) 1 each PRN Q1HR PRN BC SMOKING CESSATION; Start 06/02/17 at 16:45 Docusate Sodium (Colace) 100 mg PRN DAILY PRN PO CONSTIPATION; Start 06/02/17 at 16:45 Zolpidem Tartrate (Ambien) 5 mg PRN QHS PRN PO INSOMNIA; Start 06/02/17 at 16: 45 Iohexol (Omnipaque 300 Mg/ml) 75 ml 1X ONCE IV ; Start 06/03/17 at 12:00; Stop 06/03/17 at 12:01; Status DC Info (Do NOT chart on this entry -- for MONITORING) 1 each PRN DAILY PRN MC SEE COMMENTS; Start 06/03/17 at 12:00; Stop 06/05/17 at 11:59 Active Scripts Active Reported Eliquis (Apixaban) 5 Mg Tablet 5 Mg PO BID Diltiazem Hcl Tablet (Diltiazem Hcl) 60 Mg Tablet 120 Mg PO BID Penicillin V Potassium 500 Mg Tablet 1 Tab PO TID Amlodipine-Benazepril 5-20 Mg (Amlodipine Besylate/Benazepril) 1 Each Capsule 1 Cap PO DAILY Hydrochlorothiazide Tablet (Hydrochlorothiazide) 25 Mg Tablet 1 Tab PO DAILY Allergies Allergies: Coded Allergies: No Known Drug Allergies (Unverified , 05/31/17) ROS Review of System 12 point ROS completed, notable for RAMIRES, otherwise neg. No headaches, vision changes, balance problems, weakness Physical Exam General: Alert, Oriented X3, Cooperative, No acute distress HEENT: Atraumatic, EOMI Lungs: Other (wheezing, dyspneic) Heart: Other (irregularly irregular) Abdomen: Normal bowel sounds, No tenderness, No hepatosplenomegaly Extremities: No edema Skin: No rashes Neuro: Cranial nerves 3-12 NL Psych/Mental Status: Mental status NL, Mood NL MUSCULOSKELETAL: Other (known masses in right lower abdomen, left upper arm) Vitals VITALS Vital Signs Date Time Temp Pulse Resp B/P (MAP) Pulse Ox O2 Delivery O2 Flow Rate FiO2 06/03/17 11:34 Nasal Cannula 1.0 06/03/17 11:06 96.6 101 20 109/84 (92) 93 96.6 Labs Labs Abd wall path: FINAL DIAGNOSIS: Fibroadipose tissue, right abdominal wall mass, needle biopsy: - METASTATIC ADENOCARCINOMA, MODERATELY TO POORLY DIFFERENTIATED. SEE COMMENT. COMMENT: Sections of the right abdominal wall mass needle biopsy reveal fibroadipose tissue containing a malignant epithelial neoplasm. The malignant cells are present in solid nests and show focal acinar formation. The malignant cells have modest amount of pale eosinophilic cytoplasm, and possess enlarged, moderately to focally markedly pleomorphic hyperchromatic nuclei containing prominent nucleoli. Mitotic figures are readily demonstrated. The tumor is associated with a reactive desmoplastic stroma. A panel of immunoperoxidase stains is obtained and yields the following results: Cytokeratin 7: Tumor cells positive Cytokeratin 20: Tumor cells negative CDX2: Tumor cells positive TTF-1: Tumor cells negative BCA-225: Tumor cells positive GCDFP-15: Tumor cells negative The morphologic findings are supportive of the diagnosis of metastatic gbyhctqvoq-cg-lhzeix differentiated adenocarcinoma. The immunophenotypic findings, however, are nonspecific. Possible primary sites include breast, pancreaticobiliary and upper gastrointestinal tract, and genitourinary tract. The case is also examined by Dr. Carson and Dr. Suarez, both of whom concur with the diagnosis. Laboratory Tests Test 06/02/17 12:05 06/02/17 12:12 06/02/17 19:10 06/03/17 02:30 O2 Saturation 92 % (92-99) Arterial Blood pH 7.47 (7.35-7.45) Arterial Blood pCO2 at Patient Temp 37 mmHg (35-46) Arterial Blood pO2 at Patient Temp 61 mmHg (65-108) Arterial Blood HCO3 27 mmol/L (21-28) Arterial Blood Base Excess 3 mmol/L (-3-3) FiO2 21.0 White Blood Count 11.8 x10^3/uL (4.0-11.0) Red Blood Count 4.67 x10^6/uL (3.50-5.40) Hemoglobin 12.4 g/dL (12.0-15.5) Hematocrit 37.4 % (36.0-47.0) Mean Corpuscular Volume 80 fL (79-100) Mean Corpuscular Hemoglobin 27 pg (25-35) Mean Corpuscular Hemoglobin Concent 33 g/dL (31-37) Red Cell Distribution Width 15.9 % (11.5-14.5) Platelet Count 511 x10^3/uL (140-400) Neutrophils (%) (Auto) 83 % (31-73) Lymphocytes (%) (Auto) 12 % (24-48) Monocytes (%) (Auto) 5 % (0-9) Eosinophils (%) (Auto) 0 % (0-3) Basophils (%) (Auto) 0 % (0-3) Neutrophils # (Auto) 9.7 x10^3uL (1.8-7.7) Lymphocytes # (Auto) 1.4 x10^3/uL (1.0-4.8) Monocytes # (Auto) 0.5 x10^3/uL (0.0-1.1) Eosinophils # (Auto) 0.0 x10^3/uL (0.0-0.7) Basophils # (Auto) 0.1 x10^3/uL (0.0-0.2) Prothrombin Time 15.3 SEC (11.7-14.0) Prothromb Time International Ratio 1.3 (0.8-1.1) Sodium Level 134 mmol/L (136-145) Potassium Level 3.6 mmol/L (3.5-5.1) Chloride Level 95 mmol/L (98-107) Carbon Dioxide Level 27 mmol/L (21-32) Anion Gap 12 (6-14) Blood Urea Nitrogen 12 mg/dL (7-20) Creatinine 0.7 mg/dL (0.6-1.0) Estimated GFR (Cockcroft-Gault) 82.3 BUN/Creatinine Ratio 17 (6-20) Glucose Level 118 mg/dL (70-99) Calcium Level 8.5 mg/dL (8.5-10.1) Magnesium Level 2.1 mg/dL (1.8-2.4) Total Bilirubin 0.4 mg/dL (0.2-1.0) Aspartate Amino Transf (AST/SGOT) 13 U/L (15-37) Alanine Aminotransferase (ALT/SGPT) 17 U/L (14-59) Alkaline Phosphatase 109 U/L (46-116) Troponin I Quantitative < 0.017 ng/mL (0.000-0.055) < 0.017 ng/mL (0.000-0.055) < 0.017 ng/mL (0.000-0.055) DN-Iff-R-Type Natriuretic Peptide 373 pg/mL (0-124) Total Protein 7.0 g/dL (6.4-8.2) Albumin 2.7 g/dL (3.4-5.0) Albumin/Globulin Ratio 0.6 (1.0-1.7) Thyroid Stimulating Hormone (TSH) 1.885 uIU/mL (0.358-3.74) Laboratory Tests Test 06/02/17 12:12 06/02/17 19:10 06/03/17 02:30 White Blood Count 11.8 x10^3/uL (4.0-11.0) Red Blood Count 4.67 x10^6/uL (3.50-5.40) Hemoglobin 12.4 g/dL (12.0-15.5) Hematocrit 37.4 % (36.0-47.0) Mean Corpuscular Volume 80 fL (79-100) Mean Corpuscular Hemoglobin 27 pg (25-35) Mean Corpuscular Hemoglobin Concent 33 g/dL (31-37) Red Cell Distribution Width 15.9 % (11.5-14.5) Platelet Count 511 x10^3/uL (140-400) Neutrophils (%) (Auto) 83 % (31-73) Lymphocytes (%) (Auto) 12 % (24-48) Monocytes (%) (Auto) 5 % (0-9) Eosinophils (%) (Auto) 0 % (0-3) Basophils (%) (Auto) 0 % (0-3) Neutrophils # (Auto) 9.7 x10^3uL (1.8-7.7) Lymphocytes # (Auto) 1.4 x10^3/uL (1.0-4.8) Monocytes # (Auto) 0.5 x10^3/uL (0.0-1.1) Eosinophils # (Auto) 0.0 x10^3/uL (0.0-0.7) Basophils # (Auto) 0.1 x10^3/uL (0.0-0.2) Prothrombin Time 15.3 SEC (11.7-14.0) Prothromb Time International Ratio 1.3 (0.8-1.1) Sodium Level 134 mmol/L (136-145) Potassium Level 3.6 mmol/L (3.5-5.1) Chloride Level 95 mmol/L (98-107) Carbon Dioxide Level 27 mmol/L (21-32) Anion Gap 12 (6-14) Blood Urea Nitrogen 12 mg/dL (7-20) Creatinine 0.7 mg/dL (0.6-1.0) Estimated GFR (Cockcroft-Gault) 82.3 BUN/Creatinine Ratio 17 (6-20) Glucose Level 118 mg/dL (70-99) Calcium Level 8.5 mg/dL (8.5-10.1) Magnesium Level 2.1 mg/dL (1.8-2.4) Total Bilirubin 0.4 mg/dL (0.2-1.0) Aspartate Amino Transf (AST/SGOT) 13 U/L (15-37) Alanine Aminotransferase (ALT/SGPT) 17 U/L (14-59) Alkaline Phosphatase 109 U/L (46-116) Troponin I Quantitative < 0.017 ng/mL (0.000-0.055) < 0.017 ng/mL (0.000-0.055) < 0.017 ng/mL (0.000-0.055) CI-Dbq-L-Type Natriuretic Peptide 373 pg/mL (0-124) Total Protein 7.0 g/dL (6.4-8.2) Albumin 2.7 g/dL (3.4-5.0) Albumin/Globulin Ratio 0.6 (1.0-1.7) Thyroid Stimulating Hormone (TSH) 1.885 uIU/mL (0.358-3.74) Images Images CTA chest: The thoracic aorta appears unremarkable. There is a large soft tissue process in the left upper lobe measuring approximately 7.7 cm in width x 6 cm deep x 8 cm in length. There are occasional vessels running through the soft tissue process. There is marked narrowing of an upper lobe bronchus. The etiology is not certain. It is atypical for an infectious process and malignancy is felt most likely. Bronchoscopy is suggested for additional valuation. There is right hilar adenopathy and some adenopathy at the aorticopulmonary window. A component of subcarinal adenopathy is also likely. There is a parenchymal opacity in the right upper lobe, image 48 series 3 which is indeterminate and could be infection scar or neoplastic disease. Occasional smaller nodules are noted in the right lung which are indeterminant. There is no pleural fluid in either lung. There is no evidence of pulmonary embolus. Imaging through the upper abdomen demonstrates a lobulated mass associated with the left adrenal gland measuring approximately 2.5 cm in greatest dimension. Given the findings in the chest metastatic disease should be considered. There is a low-density 3 cm mass in the left lobe of the liver compatible with a cyst. Acute finding in the upper abdomen is not seen. IMPRESSION: Marked consolidation or infiltrative mass (neoplastic) in the left upper lobe. The latter is favored. There is associated hilar and mediastinal adenopathy. There is significant narrowing of an upper lobe bronchus. Bronchoscopy should be considered for additional evaluation. Indeterminate nodules and opacities in the right lung. Left adrenal mass. Metastatic disease should be considered. Assessment/Plan Assessment/Plan Ms. Arroyo is a 71-year-old female with the following medical problems: 1. 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 Right breast mass, abnormal screening mammogram 3. 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 Neutrophilia, thrombocytosis- Likely reactive 5. Tobacco abuse with 100 pyh- Recently had started cutting down. 6. New A fib on Eliquis. (holding this weekend for biopsy Tuesday) 7. Acute on chronic dyspnea, possibly postobstructive pneumonia. Pathology and breast mass favor breast origin, but could have 2 primaries with massive lung mass/ smoking history as well. Plan: (all ordered) 1. Diagnostic mammogram 2. CT A/P, bone scan for staging 3. No neuro sx currently, will hold on MRI brain for now 4. Bronch/ VERITO mass biopsy planned Tuesday after holding Eliquis through the weekend. 5. ER/ [place]/HER2 on abd wall pathology D/w / Dariusz Payne, and Darius. Placed call to her son, Alexander, to update him as well. Dr. Calderón is covering this weekend if urgent issues arise, otherwise I will return Tuesday. CELY BUTT DO Jun 03, 2017 12:26
--- NOTE | 2017-06-03 12:31 | PDOC ---
DEUCE URIOSTEGUI PROTOTYPER 06/03/17 1231: CARDIO Progress Notes Date and Time Date of Service 06/03/2017 Time of Evaluation 1210 Subjective Subjective: No Chest Pain, No shortness of breath, No Palpitations, No Dizziness Vitals Vitals Vital Signs Date Time Temp Pulse Resp B/P (MAP) Pulse Ox O2 Delivery O2 Flow Rate FiO2 06/03/17 11:34 Nasal Cannula 1.0 06/03/17 11:06 96.6 101 20 109/84 (92) 93 96.6 Weight Weight [ ] Input and Output Intake and Output Intake and Output 06/03/17 07:00 Intake Total 20 ml Output Total 250 ml Balance -230 ml Intake Oral 20 ml Output Urine Total 250 ml # Voids 1 Laboratory Labs Laboratory Tests Test 06/02/17 19:10 06/03/17 02:30 Troponin I Quantitative < 0.017 ng/mL (0.000-0.055) < 0.017 ng/mL (0.000-0.055) Physical Exam HEENT: Neck Supple W Full Motion Chest: Symmetric LUNGS: Clear to Auscultation Heart: S1S2, no gallops, no murmurs, irregularly irregular (Atrial flutter/ variable conduction) Abdomen: Soft N/T Extremities: No Edema, No Calf Tenderness Neurology: alert, oriented, follow commands Assessment Assessment 1. Atypical CP: pleuritic r/t #2 2. Left lung mass with metastasis with possible pneumonia: possible origin breast per hemonc 3. New onset AFIB/atrial flutter: rate controlled 90-110 at rest 4. S/P right abdominal Bx: CA verified per hemonc 5. HTN: BP at low end 6. Heavy tobaccoism with likely COPD: 2ppd Recommendations 1. Will place on ASA. Hold eliquis in anticipation of bronchoscopy/biopsy, May resume when clear with pulmonary 2. Continue IV fluids 3. Cardizem 30 mg IR bid and Dig 0125 mg daily. 4. TTE with normal wall motion and normal EF. TSH normal. Supportive care at this time. TAI GONZALEZ MD 06/03/177: CARDIO Progress Notes Assessment Assessment Patient seen and examined. Agree with HOP STRAINER's assessment and plan. Atrial fib rate controlled. 2D echo showed normal LV function. Continue current meds. Continue current workup for lung mass DEUCE URIOSTEGUI APRN Jun 03, 2017 12:31 TAI OGNZALEZ MD Jun 03, 2017 21:17
--- NOTE | 2017-06-03 12:50 | PDOC ---
PULMONARY PROGRESS NOTES Subjective has sob, cough, sputum, hemoptysis Vitals Vital Signs Date Time Temp Pulse Resp B/P (MAP) Pulse Ox O2 Delivery O2 Flow Rate FiO2 06/03/17 11:34 Nasal Cannula 1.0 06/03/17 11:06 96.6 101 20 109/84 (92) 93 96.6 ROS: No Nausea, No Chest Pain General: Alert HEENT: Other (nc at perrl nose throat clear) Lungs: Crackles Cardiovascular: S1, S2 Abdomen: Soft, Non-tender Neuro Exam: Alert Extremities: No Edema Skin: Warm Labs Laboratory Tests Test 06/02/17 12:05 06/02/17 12:12 06/02/17 19:10 06/03/17 02:30 O2 Saturation 92 % (92-99) Arterial Blood pH 7.47 (7.35-7.45) Arterial Blood pCO2 at Patient Temp 37 mmHg (35-46) Arterial Blood pO2 at Patient Temp 61 mmHg (65-108) Arterial Blood HCO3 27 mmol/L (21-28) Arterial Blood Base Excess 3 mmol/L (-3-3) FiO2 21.0 White Blood Count 11.8 x10^3/uL (4.0-11.0) Red Blood Count 4.67 x10^6/uL (3.50-5.40) Hemoglobin 12.4 g/dL (12.0-15.5) Hematocrit 37.4 % (36.0-47.0) Mean Corpuscular Volume 80 fL (79-100) Mean Corpuscular Hemoglobin 27 pg (25-35) Mean Corpuscular Hemoglobin Concent 33 g/dL (31-37) Red Cell Distribution Width 15.9 % (11.5-14.5) Platelet Count 511 x10^3/uL (140-400) Neutrophils (%) (Auto) 83 % (31-73) Lymphocytes (%) (Auto) 12 % (24-48) Monocytes (%) (Auto) 5 % (0-9) Eosinophils (%) (Auto) 0 % (0-3) Basophils (%) (Auto) 0 % (0-3) Neutrophils # (Auto) 9.7 x10^3uL (1.8-7.7) Lymphocytes # (Auto) 1.4 x10^3/uL (1.0-4.8) Monocytes # (Auto) 0.5 x10^3/uL (0.0-1.1) Eosinophils # (Auto) 0.0 x10^3/uL (0.0-0.7) Basophils # (Auto) 0.1 x10^3/uL (0.0-0.2) Prothrombin Time 15.3 SEC (11.7-14.0) Prothromb Time International Ratio 1.3 (0.8-1.1) Sodium Level 134 mmol/L (136-145) Potassium Level 3.6 mmol/L (3.5-5.1) Chloride Level 95 mmol/L (98-107) Carbon Dioxide Level 27 mmol/L (21-32) Anion Gap 12 (6-14) Blood Urea Nitrogen 12 mg/dL (7-20) Creatinine 0.7 mg/dL (0.6-1.0) Estimated GFR (Cockcroft-Gault) 82.3 BUN/Creatinine Ratio 17 (6-20) Glucose Level 118 mg/dL (70-99) Calcium Level 8.5 mg/dL (8.5-10.1) Magnesium Level 2.1 mg/dL (1.8-2.4) Total Bilirubin 0.4 mg/dL (0.2-1.0) Aspartate Amino Transf (AST/SGOT) 13 U/L (15-37) Alanine Aminotransferase (ALT/SGPT) 17 U/L (14-59) Alkaline Phosphatase 109 U/L (46-116) Troponin I Quantitative < 0.017 ng/mL (0.000-0.055) < 0.017 ng/mL (0.000-0.055) < 0.017 ng/mL (0.000-0.055) LZ-Slv-M-Type Natriuretic Peptide 373 pg/mL (0-124) Total Protein 7.0 g/dL (6.4-8.2) Albumin 2.7 g/dL (3.4-5.0) Albumin/Globulin Ratio 0.6 (1.0-1.7) Thyroid Stimulating Hormone (TSH) 1.885 uIU/mL (0.358-3.74) Laboratory Tests Test 06/02/17 19:10 06/03/17 02:30 Troponin I Quantitative < 0.017 ng/mL (0.000-0.055) < 0.017 ng/mL (0.000-0.055) Medications Active Scripts Medications Dose Route/Sig Max Daily Dose Days Date Category Eliquis (Apixaban) 5 Mg Tablet 5 Mg PO BID 06/02/17 Reported Diltiazem Hcl Tablet (Diltiazem Hcl) 60 Mg Tablet 120 Mg PO BID 06/02/17 Reported Penicillin V Potassium 500 Mg Tablet 1 Tab PO TID 05/31/17 Reported Amlodipine-Benazepril 5-20 Mg (Amlodipine Besylate/Benazepril) 1 Each Capsule 1 Cap PO DAILY 05/31/17 Reported Hydrochlorothiazide Tablet (Hydrochlorothiazide) 25 Mg Tablet 1 Tab PO DAILY 05/31/[address] of chest reviewed, Marked consolidation or infiltrative mass (neoplastic) in the left upper lobe. The latter is favored. There is associated hilar and mediastinal adenopathy. There is significant narrowing of an upper lobe bronchus. Bronchoscopy should be considered for additional evaluation. Indeterminate nodules and opacities in the right lung. Left adrenal mass. Metastatic disease should be Impression . IMPRESSION: 1. Progressive dyspnea secondary to acute exacerbation of chronic obstructive pulmonary disease and postobstructive pneumonia. 2. Abnormal CT of the chest as described above with multiple findings including left upper lobe mass, hilar and mediastinal adenopathy and postobstructive pneumonia. 3. 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 4. Chronic atrial fibrillation, on anticoagulation. 5. Malnutrition, present upon admission, based upon weight loss and low albumin. 6. Status post right abdominal biopsy done this week path pending performed by Dr. Acosta. 7. Tooth abscess. 8. Tobacco dependence. Plan . PLAN: 1. We will hold Eliquis for 3 days, proceed with bronchoscopy on Tuesday. 2. Continue current antibiotics. 3. Follow up on the abdominal biopsy. 4. Continue antibiotics. 5. Nebulized treatments. 6. Nicotine replacement. 7. The patient instructed on the importance of discontinuing her tobacco use. 8. Consult dietitian for protein malnutrition. discussed w EDWARD Parikh MD Jun 03, 2017 12:50
--- NOTE | 2017-06-03 12:57 | PDOC ---
PROGRESS NOTES Chief Complaint Chief Complaint Dyspnea on exertion, new hypoxia afib, rate controlled chest mass concerning for malignancy, possibly stage 4 8cm VERITO lung mass moderate/severe malnutrition tobaccoism, replacement ordered History of Present Illness History of Present Illness consult onc Diagnostic mammogram, Onc w/u, consider breast Ca as primary, cont current Vitals Vitals Vital Signs Date Time Temp Pulse Resp B/P (MAP) Pulse Ox O2 Delivery O2 Flow Rate FiO2 06/03/17 11:34 Nasal Cannula 1.0 06/03/17 11:06 96.6 101 20 109/84 (92) 93 96.6 Physical Exam General: Alert, Oriented X3, Cooperative, No acute distress Heart: Other (irregularly irregular) Lungs: Crackles Abdomen: Normal bowel sounds, No tenderness, No hepatosplenomegaly Extremities: No edema Skin: No rashes Labs LABS Laboratory Tests Test 06/02/17 19:10 06/03/17 02:30 Troponin I Quantitative < 0.017 ng/mL (0.000-0.055) < 0.017 ng/mL (0.000-0.055) Assessment and Plan Assessmemt and Plan Problems Medical Problems: (1) Acute respiratory failure Status: Acute (2) Pulmonary mass Status: Acute Problems: Comment Review of Relevant I have reviewed the following items dawna (where applicable) has been applied. Labs Laboratory Tests Test 06/02/17 12:05 06/02/17 12:12 06/02/17 19:10 06/03/17 02:30 O2 Saturation 92 % (92-99) Arterial Blood pH 7.47 (7.35-7.45) Arterial Blood pCO2 at Patient Temp 37 mmHg (35-46) Arterial Blood pO2 at Patient Temp 61 mmHg (65-108) Arterial Blood HCO3 27 mmol/L (21-28) Arterial Blood Base Excess 3 mmol/L (-3-3) FiO2 21.0 White Blood Count 11.8 x10^3/uL (4.0-11.0) Red Blood Count 4.67 x10^6/uL (3.50-5.40) Hemoglobin 12.4 g/dL (12.0-15.5) Hematocrit 37.4 % (36.0-47.0) Mean Corpuscular Volume 80 fL (79-100) Mean Corpuscular Hemoglobin 27 pg (25-35) Mean Corpuscular Hemoglobin Concent 33 g/dL (31-37) Red Cell Distribution Width 15.9 % (11.5-14.5) Platelet Count 511 x10^3/uL (140-400) Neutrophils (%) (Auto) 83 % (31-73) Lymphocytes (%) (Auto) 12 % (24-48) Monocytes (%) (Auto) 5 % (0-9) Eosinophils (%) (Auto) 0 % (0-3) Basophils (%) (Auto) 0 % (0-3) Neutrophils # (Auto) 9.7 x10^3uL (1.8-7.7) Lymphocytes # (Auto) 1.4 x10^3/uL (1.0-4.8) Monocytes # (Auto) 0.5 x10^3/uL (0.0-1.1) Eosinophils # (Auto) 0.0 x10^3/uL (0.0-0.7) Basophils # (Auto) 0.1 x10^3/uL (0.0-0.2) Prothrombin Time 15.3 SEC (11.7-14.0) Prothromb Time International Ratio 1.3 (0.8-1.1) Sodium Level 134 mmol/L (136-145) Potassium Level 3.6 mmol/L (3.5-5.1) Chloride Level 95 mmol/L (98-107) Carbon Dioxide Level 27 mmol/L (21-32) Anion Gap 12 (6-14) Blood Urea Nitrogen 12 mg/dL (7-20) Creatinine 0.7 mg/dL (0.6-1.0) Estimated GFR (Cockcroft-Gault) 82.3 BUN/Creatinine Ratio 17 (6-20) Glucose Level 118 mg/dL (70-99) Calcium Level 8.5 mg/dL (8.5-10.1) Magnesium Level 2.1 mg/dL (1.8-2.4) Total Bilirubin 0.4 mg/dL (0.2-1.0) Aspartate Amino Transf (AST/SGOT) 13 U/L (15-37) Alanine Aminotransferase (ALT/SGPT) 17 U/L (14-59) Alkaline Phosphatase 109 U/L (46-116) Troponin I Quantitative < 0.017 ng/mL (0.000-0.055) < 0.017 ng/mL (0.000-0.055) < 0.017 ng/mL (0.000-0.055) TJ-Hpr-L-Type Natriuretic Peptide 373 pg/mL (0-124) Total Protein 7.0 g/dL (6.4-8.2) Albumin 2.7 g/dL (3.4-5.0) Albumin/Globulin Ratio 0.6 (1.0-1.7) Thyroid Stimulating Hormone (TSH) 1.885 uIU/mL (0.358-3.74) Laboratory Tests Test 06/02/17 19:10 06/03/17 02:30 Troponin I Quantitative < 0.017 ng/mL (0.000-0.055) < 0.017 ng/mL (0.000-0.055) Medications Current Medications Iohexol (Omnipaque 300 Mg/ml) 75 ml 1X ONCE IV Last administered on 06/02/17 13:12; Start 06/02/17 at 13:00; Stop 06/02/17 at 13:01; Status DC Info (Do NOT chart on this entry -- for MONITORING) 1 each PRN DAILY PRN MC SEE COMMENTS; Start 06/02/17 at 13:00; Stop 06/04/17 at 12:59 Ondansetron HCl (Zofran) 4 mg PRN Q8HRS PRN IV NAUSEA/VOMITING; Start 06/02/17 at 13:45; Stop 06/03/17 at 13:44 Levofloxacin/ Dextrose (Levaquin Per Pharmacy) 1 each PRN DAILY PRN MC SEE COMMENTS; Start 06/02/17 at 13:45 Levofloxacin/ Dextrose 100 ml @ 100 mls/hr Q24H IV Last administered on 14:26; Start 06/02/17 at 14:00 Aspirin (Ecotrin) 81 mg [id number] PO Last administered on 06/03/17 09:19; Start 06/02/17 at 17:00 Sodium Chloride 1,000 ml @ 80 mls/hr [id number] IV Last administered on 03:26; Start 06/02/17 at 16:15 Diltiazem HCl (Cardizem 24hr Cd) 120 mg BID PO ; Start 06/02/17 at 21:00; Stop 06/02/17 at 21:00; Status DC Albuterol/ Ipratropium (Duoneb) 3 ml RTQID NEB Last administered on 06/03/17 11:33; Start 06/02/17 at 20:00 Guaifenesin (Robitussin Dm) 10 ml PRN Q6HRS PRN PO COUGH Last administered on 03:31; Start 06/02/17 at 16:45 Nicotine (Nicoderm Cq 14mg) 1 patch PRN DAILY PRN TD SMOKING CESSATION Last administered on 06/03/17 09:21; Start 06/02/17 at 16:45 Nicotine Polacrilex (Nicorette Gum) 1 each PRN Q1HR PRN BC SMOKING CESSATION; Start 06/02/17 at 16:45 Docusate Sodium (Colace) 100 mg PRN DAILY PRN PO CONSTIPATION; Start 06/02/17 at 16:45 Zolpidem Tartrate (Ambien) 5 mg PRN QHS PRN PO INSOMNIA; Start 06/02/17 at 16: 45 Iohexol (Omnipaque 300 Mg/ml) 75 ml 1X ONCE IV Last administered on 06/03/17 12:46; Start 06/03/17 at 12:00; Stop 06/03/17 at 12:01; Status DC Info (Do NOT chart on this entry -- for MONITORING) 1 each PRN DAILY PRN MC SEE COMMENTS; Start 06/03/17 at 12:00; Stop 06/05/17 at 11:59 Diltiazem HCl (Cardizem 24hr Cd) 120 mg DAILY PO ; Start 06/03/17 at 13:00; Stop 06/03/17 at 13:00; Status DC Digoxin (Lanoxin) 125 mcg DAILY PO ; Start 06/03/17 at 13:00 Diltiazem HCl (Cardizem) 30 mg Q12HR PO ; Start 06/03/17 at 21:00 Active Scripts Active Reported Eliquis (Apixaban) 5 Mg Tablet 5 Mg PO BID Diltiazem Hcl Tablet (Diltiazem Hcl) 60 Mg Tablet 120 Mg PO BID Penicillin V Potassium 500 Mg Tablet 1 Tab PO TID Amlodipine-Benazepril 5-20 Mg (Amlodipine Besylate/Benazepril) 1 Each Capsule 1 Cap PO DAILY Hydrochlorothiazide Tablet (Hydrochlorothiazide) 25 Mg Tablet 1 Tab PO DAILY Vitals/I & O Vital Sign - Last 24 Hours 06/02/17 06/02/17 06/02/17 06/02/17 13:44 14:14 14:30 15:00 Temp 98.3 98.3 Pulse 84 88 84 Resp 21 18 B/P (MAP) 102/68 (79) 98/66 (77) 102/62 (75) Pulse Ox 94 O2 Delivery Nasal Cannula Nasal Cannula Nasal Cannula O2 Flow Rate 2.0 1.0 1.0 06/02/17 06/02/17 06/02/17 06/02/17 19:00 19:12 20:00 20:19 Temp 98.0 98.5 98.0 98.5 Pulse 103 84 Resp 21 B/P (MAP) 95/67 (76) 102/62 (75) Pulse Ox 93 94 O2 Delivery Nasal Cannula Nasal Cannula O2 Flow Rate 1.0 1.0 1.0 1.0 06/02/17 06/03/17 06/03/17 06/03/17 23:00 03:00 07:00 07:31 Temp 98.0 97.8 97.9 98.0 97.8 97.9 Pulse 79 85 107 Resp 17 17 22 B/P (MAP) 104/72 (83) 102/74 (83) 102/73 (83) Pulse Ox 95 96 97 96 O2 Delivery Nasal Cannula Nasal Cannula Nasal Cannula Nasal Cannula O2 Flow Rate 1.0 1.0 1.0 1.0 06/03/17 06/03/17 06/03/17 08:00 11:06 11:34 Temp 96.6 96.6 Pulse 101 Resp 20 B/P (MAP) 109/84 (92) Pulse Ox 93 O2 Delivery Nasal Cannula Nasal Cannula Nasal Cannula O2 Flow Rate 1.0 1.0 1.0 Intake and Output 06/02/17 06/02/17 06/03/17 15:00 23:00 07:00 Intake Total 20 ml Output Total 250 ml Balance -250 ml 20 ml SHAYNA MANN MD Jun 03, 2017 12:57
--- NOTE | 2017-06-03 13:54 | RAD ---
INDICATION: Adenocarcinoma of unknown primary. COMPARISON: None. TECHNIQUE: Axial CT images were obtained through the abdomen and pelvis with intravenous contrast. Coronal reformations were processed. FINDINGS: There are multiple small subpleural nodules at the lung bases measuring up to about 5 to 6 mm. Severe calcific atherosclerosis. Enlarged lymph node right groin measuring 17 mm short axis. Subcutaneous nodule posteriorly at level of right iliac wing measuring approximately 13 x 12 mm. Additional subcutaneous nodule right lateral flank measuring approximately 17 mm. Low-attenuation lesion left lobe of the liver measuring 29 mm. May be cystic. Small fat-containing umbilical hernia. Additional suspected 15 mm low-attenuation lesion within liver adjacent to gallbladder. Suspected gallstones. Additional soft tissue nodule posterior lateral right kidney measuring 13 mm. Low-attenuation of liver adjacent to falciform ligament. Additional low-attenuation lesion within the left lobe of the liver measuring up to 3 cm. No peripancreatic edema. Masslike thickening of the left adrenal gland measuring up to about 25 x 25 mm. No hydronephrosis. Bladder partially distended and unremarkable. Uterus visualized. Calcification within which could be from fibroid. Colonic diverticulosis. Small fat-containing umbilical hernia. The appendix does not appear inflamed. No dilated loops of bowel to suggest obstruction. Degenerative changes of spine. Grade 1 anterolisthesis of L4 on 5. IMPRESSION: 1. Enlarged lymph node in the right groin as well as some subcutaneous nodules seen at the abdomen and pelvis. Although its possible that this is secondary to a reactive right groin lymph node and benign causes such as subcutaneous small hematomas, neoplastic etiology from metastatic disease can have this appearance. 2. There are multiple lesions within the liver. Largest of which has the appearance of a cystic lesion but one in the left lobe of the liver inferiorly measures higher attenuation. This is nonspecific in nature and can be seen with both benign causes such as hemangioma or cyst with debris as well as malignant causes such as metastasis within the differential. If further clarification is desired MRI liver protocol could further evaluate. 3. Masslike thickening of the left adrenal gland. If further clarification is desired MRI adrenal protocol could be obtained to assess whether this is from an adenoma or neoplastic causes. 4. Calcific atherosclerosis. 5. Gallstones. 6. There is some nodularity along the subpleural region at the bilateral lung bases. PQRS Compliance Statement: One or more of the following individualized dose reduction techniques were utilized for this examination: 1. Automated exposure control 2. Adjustment of the mA and/or kV according to patient size 3. Use of iterative reconstruction technique
--- NOTE | 2017-06-03 14:49 | RAD ---
DATE: 06/03/2017 EXAM: DIGITAL DIAGNOSTIC BILATERAL HISTORY: Possible abnormality seen on screening COMPARISON: 05/23/2017 FINDINGS: Breast Density: SCATTERED The breast parenchyma shows scattered fibroglandular densities. Breast parenchyma level B. Best demonstrated on the cc view is a well-defined benign-appearing mass immediately behind the nipple. Targeted ultrasound was performed. There is a well-defined 11 mm mass compatible with the mammographic density. There is a minimal septation. It has very benign features on mammography. Follow-up mammography and ultrasound is suggested in 6 months to document the IMPRESSION: Probable benign findings. Follow-up mammography of the right breast and targeted ultrasound in 6 months advised BI-RADS CATEGORY: 3 PROBABLE BENIGN FINDING(S-SHORT INTERVAL FOLLOW-UP SUGGESTED RECOMMENDED FOLLOW-UP: 6M 6 MONTH FOLLOW-UP PQRS compliance statement: Patient information was entered into a reminder system with a target due date December 04, 2017 for the next mammogram. Mammography is a sensitive method for finding small breast cancers, but it does not detect them all and is not a substitute for careful clinical examination. A negative mammogram does not negate a clinically suspicious finding and should not result in delay in biopsying a clinically suspicious abnormality. "Our facility is accredited by the [employer] Mammography Program." STEVEND
[2017-06-03 15:16] VITALS: BP 109/74
--- NOTE | 2017-06-03 15:31 | RAD ---
Indication lung mass. Tooth abscess. No bone pain. Body bone scan imaging was performed. No prior bone scan is available. 25 mCi of technetium labeled MDP was administered. There is increased uptake in the mandible just to the right of midline. This would be compatible with dental, carious, disease. There is slightly increased uptake of a right anterior rib which is nonspecific. No abnormal activity to suggest widespread osseous metastatic disease is seen. Normal activity is seen in the kidneys and urinary bladder IMPRESSION: No evidence of widespread osseous metastatic disease. Isolated uptake in an upper right anterior rib. This is a nonspecific finding
[2017-06-03] MEDS: DIGOXIN 125 MCG TABLET. PO SCH (16:32)
[2017-06-03 19:00] VITALS: BP 107/67
[2017-06-03] MEDS: dilTIAZem HCL 30 MG TABLET PO SCH (22:07)
[2017-06-03 23:00] VITALS: BP 104/67
[2017-06-04 03:00] VITALS: BP 109/63
[2017-06-04 07:00] VITALS: BP 116/66
[2017-06-04] MEDS: IPRATRPIUM/ALBUTEROL 0.5/2.5MG 3 ML NEBU. NEB SCH ×4 (07:32→19:39)
[2017-06-04] MEDS: NICOTINE 14MG PATCH. TD PRN (08:46)
[2017-06-04] MEDS: IV NORMAL SALINE 1000ML BAG 1,000 ML IV SCH ×3 (08:46→23:01)
[2017-06-04] MEDS: ASPIRIN ENTERIC COATED 81 MG TABLET.DR. PO SCH (08:47)
[2017-06-04] MEDS: dilTIAZem HCL 30 MG TABLET PO SCH ×2 (08:47→20:59)
[2017-06-04] MEDS: DIGOXIN 125 MCG TABLET. PO SCH (08:47)
--- NOTE | 2017-06-04 09:05 | PDOC ---
PROGRESS NOTES Chief Complaint Chief Complaint Acute hypoxic respir failure ASSESSMENT AND PLAN: 1. Hypoxia: multifactorial, incl COPD, malignancy. 2. Lung mass: primary vs secondary CA; bronch on Tuesday. appreciate Onc and Pulm services' help! 3. Afib: recent dx. cont dig, CCB 4. OAC: eliquis on hold for bronch 5. Tobaccoism: on nicotine patch 6. Moderate hypoalbuminemia: 2/2 inflammation/malignancy and malnutrition. nutrition consult History of Present Illness History of Present Illness feels fine, no SOB or CP. cough with deep breathing Vitals Vitals Vital Signs Date Time Temp Pulse Resp B/P (MAP) Pulse Ox O2 Delivery O2 Flow Rate FiO2 06/04/17 08:47 97 109/63 06/04/17 07:34 Nasal Cannula 1.0 06/04/17 03:00 97.9 16 94 97.9 Physical Exam General: Alert, Oriented X3, Cooperative, No acute distress Heart: Other (irregularly irregular) Lungs: Wheezing Abdomen: Normal bowel sounds, No tenderness, No hepatosplenomegaly Extremities: No edema Skin: No rashes MICHELLE TOM MD Jun 04, 2017 09:05
[2017-06-04 11:00] VITALS: BP 109/63
--- NOTE | 2017-06-04 11:56 | PDOC ---
PULMONARY PROGRESS NOTES Subjective has sob, cough, sputum, no hemoptysis, no pain Vitals Vital Signs Date Time Temp Pulse Resp B/P (MAP) Pulse Ox O2 Delivery O2 Flow Rate FiO2 06/04/17 11:25 96 Nasal Cannula 1.0 06/04/17 08:47 97 109/63 06/04/17 07:00 97.7 20 97.7 ROS: No Nausea, No Chest Pain General: Alert HEENT: Other (nc at perrl nose throat clear) Lungs: Wheezing Cardiovascular: S1, S2 Abdomen: Soft, Non-tender Neuro Exam: Alert Extremities: No Edema Skin: Warm Labs Laboratory Tests Test 06/02/17 12:05 06/02/17 12:12 06/02/17 19:10 06/03/17 02:30 O2 Saturation 92 % (92-99) Arterial Blood pH 7.47 (7.35-7.45) Arterial Blood pCO2 at Patient Temp 37 mmHg (35-46) Arterial Blood pO2 at Patient Temp 61 mmHg (65-108) Arterial Blood HCO3 27 mmol/L (21-28) Arterial Blood Base Excess 3 mmol/L (-3-3) FiO2 21.0 White Blood Count 11.8 x10^3/uL (4.0-11.0) Red Blood Count 4.67 x10^6/uL (3.50-5.40) Hemoglobin 12.4 g/dL (12.0-15.5) Hematocrit 37.4 % (36.0-47.0) Mean Corpuscular Volume 80 fL (79-100) Mean Corpuscular Hemoglobin 27 pg (25-35) Mean Corpuscular Hemoglobin Concent 33 g/dL (31-37) Red Cell Distribution Width 15.9 % (11.5-14.5) Platelet Count 511 x10^3/uL (140-400) Neutrophils (%) (Auto) 83 % (31-73) Lymphocytes (%) (Auto) 12 % (24-48) Monocytes (%) (Auto) 5 % (0-9) Eosinophils (%) (Auto) 0 % (0-3) Basophils (%) (Auto) 0 % (0-3) Neutrophils # (Auto) 9.7 x10^3uL (1.8-7.7) Lymphocytes # (Auto) 1.4 x10^3/uL (1.0-4.8) Monocytes # (Auto) 0.5 x10^3/uL (0.0-1.1) Eosinophils # (Auto) 0.0 x10^3/uL (0.0-0.7) Basophils # (Auto) 0.1 x10^3/uL (0.0-0.2) Prothrombin Time 15.3 SEC (11.7-14.0) Prothromb Time International Ratio 1.3 (0.8-1.1) Sodium Level 134 mmol/L (136-145) Potassium Level 3.6 mmol/L (3.5-5.1) Chloride Level 95 mmol/L (98-107) Carbon Dioxide Level 27 mmol/L (21-32) Anion Gap 12 (6-14) Blood Urea Nitrogen 12 mg/dL (7-20) Creatinine 0.7 mg/dL (0.6-1.0) Estimated GFR (Cockcroft-Gault) 82.3 BUN/Creatinine Ratio 17 (6-20) Glucose Level 118 mg/dL (70-99) Calcium Level 8.5 mg/dL (8.5-10.1) Magnesium Level 2.1 mg/dL (1.8-2.4) Total Bilirubin 0.4 mg/dL (0.2-1.0) Aspartate Amino Transf (AST/SGOT) 13 U/L (15-37) Alanine Aminotransferase (ALT/SGPT) 17 U/L (14-59) Alkaline Phosphatase 109 U/L (46-116) Troponin I Quantitative < 0.017 ng/mL (0.000-0.055) < 0.017 ng/mL (0.000-0.055) < 0.017 ng/mL (0.000-0.055) WO-Kya-P-Type Natriuretic Peptide 373 pg/mL (0-124) Total Protein 7.0 g/dL (6.4-8.2) Albumin 2.7 g/dL (3.4-5.0) Albumin/Globulin Ratio 0.6 (1.0-1.7) Thyroid Stimulating Hormone (TSH) 1.885 uIU/mL (0.358-3.74) Medications Active Scripts Medications Dose Route/Sig Max Daily Dose Days Date Category Eliquis (Apixaban) 5 Mg Tablet 5 Mg PO BID 06/02/17 Reported Diltiazem Hcl Tablet (Diltiazem Hcl) 60 Mg Tablet 120 Mg PO BID 06/02/17 Reported Penicillin V Potassium 500 Mg Tablet 1 Tab PO TID 05/31/17 Reported Amlodipine-Benazepril 5-20 Mg (Amlodipine Besylate/Benazepril) 1 Each Capsule 1 Cap PO DAILY 05/31/17 Reported Hydrochlorothiazide Tablet (Hydrochlorothiazide) 25 Mg Tablet 1 Tab PO DAILY 05/31/[address] of chest reviewed, Marked consolidation or infiltrative mass (neoplastic) in the left upper lobe. The latter is favored. There is associated hilar and mediastinal adenopathy. There is significant narrowing of an upper lobe bronchus. Bronchoscopy should be considered for additional evaluation. Indeterminate nodules and opacities in the right lung. Left adrenal mass. Metastatic disease should be Impression . IMPRESSION: 1. Progressive dyspnea secondary to acute exacerbation of chronic obstructive pulmonary disease and postobstructive pneumonia. 2. Abnormal CT of the chest as described above with multiple findings including left upper lobe mass, hilar and mediastinal adenopathy and postobstructive pneumonia. 3. 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 4. Chronic atrial fibrillation, on anticoagulation. 5. Malnutrition, present upon admission, based upon weight loss and low albumin. 6. Status post right abdominal biopsy done this week path pending performed by Dr. Acosta. 7. Tooth abscess. 8. Tobacco dependence. Plan . PLAN: 1. Eliquis on hold, proceed with bronchoscopy on Tuesday. 2. Continue current antibiotics. 3. Follow up on the abdominal biopsy. 4. Continue antibiotics. 5. Nebulized treatments. 6. Nicotine replacement. 7. The patient instructed on the importance of discontinuing her tobacco use. 8. Consult dietitian for protein malnutrition. discussed w pt. 9. add ics discussed w pt EDWARD POPE MD Jun 04, 2017 11:56
[2017-06-04 15:00] VITALS: BP 109/74
[2017-06-04 19:00] VITALS: BP 129/80
[2017-06-04] MEDS: guaiFENesin DM 200MG/20MG 10 ML SYRUP PO PRN (21:00)
[2017-06-04 22:46] VITALS: BP 115/71
[2017-06-05] MEDS: IPRATRPIUM/ALBUTEROL 0.5/2.5MG 3 ML NEBU. NEB SCH ×4 (06:58→21:19)
[2017-06-05 07:00] VITALS: BP 96/72
[2017-06-05 10:52] VITALS: BP 121/86
[2017-06-05] MEDS: IV NORMAL SALINE 1000ML BAG 1,000 ML IV SCH (12:13)
[2017-06-05] MEDS: ASPIRIN ENTERIC COATED 81 MG TABLET.DR. PO SCH (12:14)
[2017-06-05] MEDS: DIGOXIN 125 MCG TABLET. PO SCH (12:14)
[2017-06-05] MEDS: dilTIAZem HCL 30 MG TABLET PO SCH ×4 (12:18→20:58)
[2017-06-05] MEDS: NICOTINE 14MG PATCH. TD PRN (12:18)
[2017-06-05] MEDS ORDERED: METOPROLOL TARTRATE 5 MG/5 ML VIAL. IVP ONE (12:45)
--- NOTE | 2017-06-05 12:54 | PDOC ---
PULMONARY PROGRESS NOTES Subjective has sob, has more cough, sputum, no hemoptysis, no pain Vitals Vital Signs Date Time Temp Pulse Resp B/P (MAP) Pulse Ox O2 Delivery O2 Flow Rate FiO2 06/05/17 12:26 98 Nasal Cannula 1.0 06/05/17 12:18 108 121/86 06/05/17 10:52 97.7 18 97.7 ROS: No Nausea, No Chest Pain General: Alert HEENT: Other (nc at perrl nose throat clear) Lungs: Wheezing Cardiovascular: S1, S2 Abdomen: Soft, Non-tender Neuro Exam: Alert Extremities: No Edema Skin: Warm Medications Active Scripts Medications Dose Route/Sig Max Daily Dose Days Date Category Eliquis (Apixaban) 5 Mg Tablet 5 Mg PO BID 06/02/17 Reported Diltiazem Hcl Tablet (Diltiazem Hcl) 60 Mg Tablet 120 Mg PO BID 06/02/17 Reported Penicillin V Potassium 500 Mg Tablet 1 Tab PO TID 05/31/17 Reported Amlodipine-Benazepril 5-20 Mg (Amlodipine Besylate/Benazepril) 1 Each Capsule 1 Cap PO DAILY 05/31/17 Reported Hydrochlorothiazide Tablet (Hydrochlorothiazide) 25 Mg Tablet 1 Tab PO DAILY 05/31/[address] of chest reviewed, Marked consolidation or infiltrative mass (neoplastic) in the left upper lobe. The latter is favored. There is associated hilar and mediastinal adenopathy. There is significant narrowing of an upper lobe bronchus. Bronchoscopy should be considered for additional evaluation. Indeterminate nodules and opacities in the right lung. Left adrenal mass. Metastatic disease should be Impression . IMPRESSION: 1. Progressive dyspnea secondary to acute exacerbation of chronic obstructive pulmonary disease and postobstructive pneumonia. 2. Abnormal CT of the chest as described above with multiple findings including left upper lobe mass, hilar and mediastinal adenopathy and postobstructive pneumonia. 3. 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 4. Chronic atrial fibrillation, on anticoagulation. 5. Malnutrition, present upon admission, based upon weight loss and low albumin. 6. Status post right abdominal biopsy done this week path pending performed by Dr. Acosta. 7. Tooth abscess. 8. Tobacco dependence. 9. allergic rhinitis Plan . PLAN: 1. Eliquis on hold, proceed with bronchoscopy on Tuesday. 2. Continue current antibiotics. 3. Follow up on the abdominal biopsy. 4. Continue antibiotics. 5. Nebulized treatments. 6. Nicotine replacement. 7. The patient instructed on the importance of discontinuing her tobacco use. 8. Consult dietitian for protein malnutrition. discussed w pt. 9. ics 10. tomasz rich discussed w pt EDWARD POPE MD Jun 05, 2017 12:54
[2017-06-05] MEDS ORDERED: DIGOXIN IV 500 MCG/2 ML AMPUL. IV ONE (13:00)
--- NOTE | 2017-06-05 13:01 | PDOC ---
PROGRESS NOTES Chief Complaint Chief Complaint Acute hypoxic respir failure ASSESSMENT AND PLAN: 1. Hypoxia: multifactorial, incl COPD, malignancy. 2. Lung mass: primary vs secondary CA; bronch on Tuesday. appreciate Onc and Pulm services' help! 3. Afib: recent dx. cont dig, CCB 4. OAC: eliquis on hold for bronch 5. Tobaccoism: on nicotine patch 6. Moderate hypoalbuminemia: 2/2 inflammation/malignancy and malnutrition. nutrition consult History of Present Illness History of Present Illness more dyspneic today Afib RVR now, will give metop 5 IV X1, additional dig one time, increase cardizem to 60 TID PT and OT consult encouraged ambulation, I discussed functional str and nutrition being crucial to future treatments feels well at rest, no SOB or CP. cough with deep breathing Vitals Vitals Vital Signs Date Time Temp Pulse Resp B/P (MAP) Pulse Ox O2 Delivery O2 Flow Rate FiO2 06/05/17 12:26 98 Nasal Cannula 1.0 06/05/17 12:18 108 121/86 06/05/17 10:52 97.7 18 97.7 Physical Exam Physical Exam tele, flutter waves, rate 100 to 120, fluc General: Alert, Oriented X3, Cooperative, No acute distress Heart: Other (irregularly irregular, HR > 100) Lungs: Wheezing Abdomen: Other Extremities: No clubbing, No edema Skin: No rashes, No breakdown Review of Systems Review of Systems cough, dyspnea, weakenss Assessment and Plan Assessmemt and Plan Problems Medical Problems: (1) Acute respiratory failure Status: Acute (2) Pulmonary mass Status: Acute Problems: Comment Review of Relevant I have reviewed the following items dawna (where applicable) has been applied. Labs Microbiology 06/02/17 Blood Culture - Preliminary, Resulted NO GROWTH AFTER 2 DAYS Medications Current Medications Iohexol (Omnipaque 300 Mg/ml) 75 ml 1X ONCE IV Last administered on 06/02/17t 13:12; Start 06/02/17 at 13:00; Stop 06/02/17 at 13:01; Status DC Info (Do NOT chart on this entry -- for MONITORING) 1 each PRN DAILY PRN MC SEE COMMENTS; Start 06/02/17 at 13:00; Stop 06/03/17 at 14:18; Status DC Ondansetron HCl (Zofran) 4 mg PRN Q8HRS PRN IV NAUSEA/VOMITING; Start 06/02/17 at 13:45; Stop 06/03/17 at 13:44; Status DC Levofloxacin/ Dextrose (Levaquin Per Pharmacy) 1 each PRN DAILY PRN MC SEE COMMENTS; Start 06/02/17 at 13:45 Levofloxacin/ Dextrose 100 ml @ 100 mls/hr Q24H IV Last administered on 14:20; Start 06/02/17 at 14:00 Aspirin (Ecotrin) 81 mg DAILYWBKFT PO Last administered on 06/05/17 12:14; Start 06/02/17 at 17:00 Sodium Chloride 1,000 ml @ 80 mls/hr [id number] IV Last administered on 12:13; Start 06/02/17 at 16:15 Diltiazem HCl (Cardizem 24hr Cd) 120 mg BID PO ; Start 06/02/17 at 21:00; Stop 06/02/17 at 21:00; Status DC Albuterol/ Ipratropium (Duoneb) 3 ml RTQID NEB Last administered on 06/05/17 12:25; Start 06/02/17 at 20:00 Guaifenesin (Robitussin Dm) 10 ml PRN Q6HRS PRN PO COUGH Last administered on 21:00; Start 06/02/17 at 16:45 Nicotine (Nicoderm Cq 14mg) 1 patch PRN DAILY PRN TD SMOKING CESSATION Last administered on 06/05/17 12:18; Start 06/02/17 at 16:45 Nicotine Polacrilex (Nicorette Gum) 1 each PRN Q1HR PRN BC SMOKING CESSATION; Start 06/02/17 at 16:45 Docusate Sodium (Colace) 100 mg PRN DAILY PRN PO CONSTIPATION; Start 06/02/17 at 16:45 Zolpidem Tartrate (Ambien) 5 mg PRN QHS PRN PO INSOMNIA; Start 06/02/17 at 16: 45 Iohexol (Omnipaque 300 Mg/ml) 75 ml 1X ONCE IV Last administered on 06/03/17 12:46; Start 06/03/17 at 12:00; Stop 06/03/17 at 12:01; Status DC Info (Do NOT chart on this entry -- for MONITORING) 1 each PRN DAILY PRN MC SEE COMMENTS; Start 06/03/17 at 12:00; Stop 06/05/17 at 11:59; Status DC Diltiazem HCl (Cardizem 24hr Cd) 120 mg DAILY PO ; Start 06/03/17 at 13:00; Stop 06/03/17 at 13:00; Status DC Digoxin (Lanoxin) 125 mcg DAILY PO Last administered on 06/05/17t 12:14; Start 06/03/17 at 13:00 Diltiazem HCl (Cardizem) 30 mg Q12HR PO Last administered on 06/05/17t 12:18; Start 06/03/17 at 21:00; Stop 06/05/17 at 12:46; Status DC Diltiazem HCl (Cardizem) 60 mg TID PO ; Start 06/05/17 at 12:45 Metoprolol Tartrate (Lopressor) 5 mg 1X ONCE IVP ; Start 06/05/17 at 12:45; Stop 06/05/17 at 12:52; Status DC Digoxin (Lanoxin) 125 mcg 1X ONCE IV ; Start 06/05/17 at 13:00; Stop 06/05/17 at 13:01 Montelukast Sodium (Singulair) 10 mg QHS PO ; Start 06/05/17 at 21:00 Active Scripts Active Reported Eliquis (Apixaban) 5 Mg Tablet 5 Mg PO BID Diltiazem Hcl Tablet (Diltiazem Hcl) 60 Mg Tablet 120 Mg PO BID Penicillin V Potassium 500 Mg Tablet 1 Tab PO TID Amlodipine-Benazepril 5-20 Mg (Amlodipine Besylate/Benazepril) 1 Each Capsule 1 Cap PO DAILY Hydrochlorothiazide Tablet (Hydrochlorothiazide) 25 Mg Tablet 1 Tab PO DAILY Vitals/I & O Vital Sign - Last 24 Hours 06/04/17 06/04/17 06/04/17 06/04/17 15:00 16:40 19:00 19:40 Temp 97.9 97.9 97.9 97.9 Pulse 106 113 Resp 20 16 B/P (MAP) 109/74 (86) 129/80 (96) Pulse Ox 98 95 94 O2 Delivery Room Air Nasal Cannula Room Air Nasal Cannula O2 Flow Rate 1.0 1.0 06/04/17 06/04/17 06/04/17 06/05/17 20:00 20:59 22:46 07:00 Temp 98.3 97.7 98.3 97.7 Pulse 113 117 82 Resp 19 18 B/P (MAP) 129/80 115/71 (86) 96/72 (80) Pulse Ox 94 97 O2 Delivery Nasal Cannula Room Air Nasal Cannula O2 Flow Rate 1.0 2.0 06/05/17 06/05/17 06/05/17 06/05/17 07:01 10:52 12:14 12:18 Temp 97.7 97.7 Pulse 64 108 108 Resp 18 B/P (MAP) 121/86 (98) 121/86 121/86 Pulse Ox 97 97 O2 Delivery Nasal Cannula Nasal Cannula O2 Flow Rate 1.0 2.0 06/05/17 12:26 Pulse Ox 98 O2 Delivery Nasal Cannula O2 Flow Rate 1.0 Intake and Output 06/04/17 06/04/17 06/05/17 15:00 23:00 07:00 Intake Total 600 ml 360 ml 0 ml Balance 600 ml 360 ml 0 ml SHAYNA MANN MD Jun 05, 2017 13:01
[2017-06-05 15:00] VITALS: BP 120/81
[2017-06-05 19:00] VITALS: BP 117/73
[2017-06-05] MEDS: MONTELUKAST SODIUM 10 MG TABLET. PO SCH (20:58)
[2017-06-05 23:00] VITALS: BP 132/88
[2017-06-06] VITALS (11 sets, daily range): BP systolic 103–157; BP diastolic 67–92
[2017-06-06] MEDS: IV NORMAL SALINE 1000ML BAG 1,000 ML IV SCH ×2 (01:13→20:08)
[2017-06-06] MEDS: guaiFENesin DM 200MG/20MG 10 ML SYRUP PO PRN ×2 (01:15→20:50)
[2017-06-06 04:58] LABS: BASO % 0 % (0-3); EOS % 1 % (0-3); HEMATOCRIT 36.1 % (36.0-47.0); HEMOGLOBIN 11.8 g/dL (12.0-15.5); LYMPH # 1.4 x10^3/uL (1.0-4.8); LYMPH % 13 % (24-48); MEAN CORPUSCULAR HEMOGLOBIN 27 pg (25-35); MEAN CORPUSCULAR HGB CONC 33 g/dL (31-37); MEAN CORPUSCULAR VOLUME 81 fL (79-100); MONO % 6 % (0-9); NEUT % 79 % (31-73); PLATELET COUNT 481 x10^3/uL (140-400); RED BLOOD COUNT 4.44 x10^6/uL (3.50-5.40); RED CELL DISTRIBUTION WIDTH 15.9 % (11.5-14.5); WHITE BLOOD COUNT 10.9 x10^3/uL (4.0-11.0)
[2017-06-06 05:50] LABS: ALBUMIN 2.3 g/dL (3.4-5.0); ALBUMIN/GLOBULIN RATIO 0.6 (1.0-1.7); CALCIUM 7.9 mg/dL (8.5-10.1); CREATININE 0.6 mg/dL (0.6-1.0); GFR 98.3; POTASSIUM 3.9 mmol/L (3.5-5.1); TOTAL BILIRUBIN 0.4 mg/dL (0.2-1.0); TOTAL PROTEIN 6.3 g/dL (6.4-8.2)
[2017-06-06] MEDS: IPRATRPIUM/ALBUTEROL 0.5/2.5MG 3 ML NEBU. NEB SCH ×4 (07:47→20:29)
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
--- NOTE | 2017-06-06 09:50 | PDOC ---
PROGRESS NOTES Chief Complaint Chief Complaint Acute hypoxic respir failure ASSESSMENT AND PLAN: 1. Hypoxia: multifactorial, incl COPD, malignancy. 2. Lung mass: primary vs secondary CA; bronch on Tuesday. appreciate Onc and Pulm services' help! 3. Afib: w/ RVR, increased meds yesterday cont dig, CCB 4. OAC: eliquis on hold for bronch 5. Tobaccoism: on nicotine patch 6. Moderate hypoalbuminemia: 2/2 inflammation/malignancy and malnutrition. nutrition consult History of Present Illness History of Present Illness more dyspneic today Afib RVR treated, now HR about 100 will give metop 5 IV prn 6 minute walk ordered pt would like to DC home today after Bronch, MRI also pending PT and OT consult encouraged ambulation, Vitals Vitals Vital Signs Date Time Temp Pulse Resp B/P (MAP) Pulse Ox O2 Delivery O2 Flow Rate FiO2 06/06/17 07:47 97 Nasal Cannula 1.0 06/06/17 07:00 97.9 106 20 133/88 (103) 97.9 Physical Exam Physical Exam tele, flutter waves, rate 100 to 120, fluc General: Alert, Oriented X3, Cooperative, No acute distress Heart: Regular rate Lungs: Wheezing Abdomen: Other Extremities: No edema Skin: No rashes, No breakdown Labs LABS Laboratory Tests Test 06/06/17 04:00 06/06/17 04:20 White Blood Count 10.9 x10^3/uL (4.0-11.0) Red Blood Count 4.44 x10^6/uL (3.50-5.40) Hemoglobin 11.8 g/dL (12.0-15.5) Hematocrit 36.1 % (36.0-47.0) Mean Corpuscular Volume 81 fL (79-100) Mean Corpuscular Hemoglobin 27 pg (25-35) Mean Corpuscular Hemoglobin Concent 33 g/dL (31-37) Red Cell Distribution Width 15.9 % (11.5-14.5) Platelet Count 481 x10^3/uL (140-400) Neutrophils (%) (Auto) 79 % (31-73) Lymphocytes (%) (Auto) 13 % (24-48) Monocytes (%) (Auto) 6 % (0-9) Eosinophils (%) (Auto) 1 % (0-3) Basophils (%) (Auto) 0 % (0-3) Neutrophils # (Auto) 8.6 x10^3uL (1.8-7.7) Lymphocytes # (Auto) 1.4 x10^3/uL (1.0-4.8) Monocytes # (Auto) 0.6 x10^3/uL (0.0-1.1) Eosinophils # (Auto) 0.2 x10^3/uL (0.0-0.7) Basophils # (Auto) 0.0 x10^3/uL (0.0-0.2) Sodium Level 137 mmol/L (136-145) Potassium Level 3.9 mmol/L (3.5-5.1) Chloride Level 101 mmol/L (98-107) Carbon Dioxide Level 26 mmol/L (21-32) Anion Gap 10 (6-14) Blood Urea Nitrogen 8 mg/dL (7-20) Creatinine 0.6 mg/dL (0.6-1.0) Estimated GFR (Cockcroft-Gault) 98.3 BUN/Creatinine Ratio 13 (6-20) Glucose Level 107 mg/dL (70-99) Calcium Level 7.9 mg/dL (8.5-10.1) Total Bilirubin 0.4 mg/dL (0.2-1.0) Aspartate Amino Transf (AST/SGOT) 10 U/L (15-37) Alanine Aminotransferase (ALT/SGPT) 17 U/L (14-59) Alkaline Phosphatase 95 U/L (46-116) Total Protein 6.3 g/dL (6.4-8.2) Albumin 2.3 g/dL (3.4-5.0) Albumin/Globulin Ratio 0.6 (1.0-1.7) Review of Systems Review of Systems RAMIRES insomnia, some anxiety about broch Assessment and Plan Assessmemt and Plan Problems Medical Problems: (1) Acute respiratory failure Status: Acute (2) Pulmonary mass Status: Acute Problems: Comment Review of Relevant I have reviewed the following items dawna (where applicable) has been applied. Labs Laboratory Tests Test 06/06/17 04:00 06/06/17 04:20 White Blood Count 10.9 x10^3/uL (4.0-11.0) Red Blood Count 4.44 x10^6/uL (3.50-5.40) Hemoglobin 11.8 g/dL (12.0-15.5) Hematocrit 36.1 % (36.0-47.0) Mean Corpuscular Volume 81 fL (79-100) Mean Corpuscular Hemoglobin 27 pg (25-35) Mean Corpuscular Hemoglobin Concent 33 g/dL (31-37) Red Cell Distribution Width 15.9 % (11.5-14.5) Platelet Count 481 x10^3/uL (140-400) Neutrophils (%) (Auto) 79 % (31-73) Lymphocytes (%) (Auto) 13 % (24-48) Monocytes (%) (Auto) 6 % (0-9) Eosinophils (%) (Auto) 1 % (0-3) Basophils (%) (Auto) 0 % (0-3) Neutrophils # (Auto) 8.6 x10^3uL (1.8-7.7) Lymphocytes # (Auto) 1.4 x10^3/uL (1.0-4.8) Monocytes # (Auto) 0.6 x10^3/uL (0.0-1.1) Eosinophils # (Auto) 0.2 x10^3/uL (0.0-0.7) Basophils # (Auto) 0.0 x10^3/uL (0.0-0.2) Sodium Level 137 mmol/L (136-145) Potassium Level 3.9 mmol/L (3.5-5.1) Chloride Level 101 mmol/L (98-107) Carbon Dioxide Level 26 mmol/L (21-32) Anion Gap 10 (6-14) Blood Urea Nitrogen 8 mg/dL (7-20) Creatinine 0.6 mg/dL (0.6-1.0) Estimated GFR (Cockcroft-Gault) 98.3 BUN/Creatinine Ratio 13 (6-20) Glucose Level 107 mg/dL (70-99) Calcium Level 7.9 mg/dL (8.5-10.1) Total Bilirubin 0.4 mg/dL (0.2-1.0) Aspartate Amino Transf (AST/SGOT) 10 U/L (15-37) Alanine Aminotransferase (ALT/SGPT) 17 U/L (14-59) Alkaline Phosphatase 95 U/L (46-116) Total Protein 6.3 g/dL (6.4-8.2) Albumin 2.3 g/dL (3.4-5.0) Albumin/Globulin Ratio 0.6 (1.0-1.7) Laboratory Tests Test 06/06/17 04:00 06/06/17 04:20 White Blood Count 10.9 x10^3/uL (4.0-11.0) Red Blood Count 4.44 x10^6/uL (3.50-5.40) Hemoglobin 11.8 g/dL (12.0-15.5) Hematocrit 36.1 % (36.0-47.0) Mean Corpuscular Volume 81 fL (79-100) Mean Corpuscular Hemoglobin 27 pg (25-35) Mean Corpuscular Hemoglobin Concent 33 g/dL (31-37) Red Cell Distribution Width 15.9 % (11.5-14.5) Platelet Count 481 x10^3/uL (140-400) Neutrophils (%) (Auto) 79 % (31-73) Lymphocytes (%) (Auto) 13 % (24-48) Monocytes (%) (Auto) 6 % (0-9) Eosinophils (%) (Auto) 1 % (0-3) Basophils (%) (Auto) 0 % (0-3) Neutrophils # (Auto) 8.6 x10^3uL (1.8-7.7) Lymphocytes # (Auto) 1.4 x10^3/uL (1.0-4.8) Monocytes # (Auto) 0.6 x10^3/uL (0.0-1.1) Eosinophils # (Auto) 0.2 x10^3/uL (0.0-0.7) Basophils # (Auto) 0.0 x10^3/uL (0.0-0.2) Sodium Level 137 mmol/L (136-145) Potassium Level 3.9 mmol/L (3.5-5.1) Chloride Level 101 mmol/L (98-107) Carbon Dioxide Level 26 mmol/L (21-32) Anion Gap 10 (6-14) Blood Urea Nitrogen 8 mg/dL (7-20) Creatinine 0.6 mg/dL (0.6-1.0) Estimated GFR (Cockcroft-Gault) 98.3 BUN/Creatinine Ratio 13 (6-20) Glucose Level 107 mg/dL (70-99) Calcium Level 7.9 mg/dL (8.5-10.1) Total Bilirubin 0.4 mg/dL (0.2-1.0) Aspartate Amino Transf (AST/SGOT) 10 U/L (15-37) Alanine Aminotransferase (ALT/SGPT) 17 U/L (14-59) Alkaline Phosphatase 95 U/L (46-116) Total Protein 6.3 g/dL (6.4-8.2) Albumin 2.3 g/dL (3.4-5.0) Albumin/Globulin Ratio 0.6 (1.0-1.7) Microbiology 06/02/17 Blood Culture - Preliminary, Resulted NO GROWTH AFTER 3 DAYS Medications Current Medications Iohexol (Omnipaque 300 Mg/ml) 75 ml 1X ONCE IV Last administered on 06/02/17 13:12; Start 06/02/17 at 13:00; Stop 06/02/17 at 13:01; Status DC Info (Do NOT chart on this entry -- for MONITORING) 1 each PRN DAILY PRN MC SEE COMMENTS; Start 06/02/17 at 13:00; Stop 06/03/17 at 14:18; Status DC Ondansetron HCl (Zofran) 4 mg PRN Q8HRS PRN IV NAUSEA/VOMITING; Start 06/02/17 at 13:45; Stop 06/03/17 at 13:44; Status DC Levofloxacin/ Dextrose (Levaquin Per Pharmacy) 1 each PRN DAILY PRN MC SEE COMMENTS; Start 06/02/17 at 13:45 Levofloxacin/ Dextrose 100 ml @ 100 mls/hr Q24H IV Last administered on 15:37; Start 06/02/17 at 14:00 Aspirin (Ecotrin) 81 mg DAILYWBKFT PO Last administered on 06/05/17 12:14; Start 06/02/17 at 17:00 Sodium Chloride 1,000 ml @ 80 mls/hr [id number] IV Last administered on 01:13; Start 06/02/17 at 16:15 Diltiazem HCl (Cardizem 24hr Cd) 120 mg BID PO ; Start 06/02/17 at 21:00; Stop 06/02/17 at 21:00; Status DC Albuterol/ Ipratropium (Duoneb) 3 ml RTQID NEB Last administered on 06/06/17 07:47; Start 06/02/17 at 20:00 Guaifenesin (Robitussin Dm) 10 ml PRN Q6HRS PRN PO COUGH Last administered on 01:15; Start 06/02/17 at 16:45 Nicotine (Nicoderm Cq 14mg) 1 patch PRN DAILY PRN TD SMOKING CESSATION Last administered on 06/05/17 12:18; Start 06/02/17 at 16:45 Nicotine Polacrilex (Nicorette Gum) 1 each PRN Q1HR PRN BC SMOKING CESSATION; Start 06/02/17 at 16:45 Docusate Sodium (Colace) 100 mg PRN DAILY PRN PO CONSTIPATION; Start 06/02/17 at 16:45 Zolpidem Tartrate (Ambien) 5 mg PRN QHS PRN PO INSOMNIA; Start 06/02/17 at 16: 45 Iohexol (Omnipaque 300 Mg/ml) 75 ml 1X ONCE IV Last administered on 06/03/17 12:46; Start 06/03/17 at 12:00; Stop 06/03/17 at 12:01; Status DC Info (Do NOT chart on this entry -- for MONITORING) 1 each PRN DAILY PRN MC SEE COMMENTS; Start 06/03/17 at 12:00; Stop 06/05/17 at 11:59; Status DC Diltiazem HCl (Cardizem 24hr Cd) 120 mg DAILY PO ; Start 06/03/17 at 13:00; Stop 06/03/17 at 13:00; Status DC Digoxin (Lanoxin) 125 mcg DAILY PO Last administered on 06/05/17 12:14; Start 06/03/17 at 13:00 Diltiazem HCl (Cardizem) 30 mg Q12HR PO Last administered on 06/05/17 12:18; Start 06/03/17 at 21:00; Stop 06/05/17 at 12:46; Status DC Diltiazem HCl (Cardizem) 60 mg TID PO Last administered on 06/05/17 20:58; Start 06/05/17 at 12:45 Metoprolol Tartrate (Lopressor) 5 mg 1X ONCE IVP Last administered on 13:10; Start 06/05/17 at 12:45; Stop 06/05/17 at 12:52; Status DC Digoxin (Lanoxin) 125 mcg 1X ONCE IV Last administered on 06/05/17 13:11; Start 06/05/17 at 13:00; Stop 06/05/17 at 13:01; Status DC Montelukast Sodium (Singulair) 10 mg QHS PO Last administered on 06/05/17 20: 58; Start 06/05/17 at 21:00 Active Scripts Active Reported Eliquis (Apixaban) 5 Mg Tablet 5 Mg PO BID Diltiazem Hcl Tablet (Diltiazem Hcl) 60 Mg Tablet 120 Mg PO BID Penicillin V Potassium 500 Mg Tablet 1 Tab PO TID Amlodipine-Benazepril 5-20 Mg (Amlodipine Besylate/Benazepril) 1 Each Capsule 1 Cap PO DAILY Hydrochlorothiazide Tablet (Hydrochlorothiazide) 25 Mg Tablet 1 Tab PO DAILY Vitals/I & O Vital Sign - Last 24 Hours 06/05/17 06/05/17 06/05/17 06/05/17 10:52 12:14 12:18 12:26 Temp 97.7 97.7 Pulse 64 108 108 Resp 18 B/P (MAP) 121/86 (98) 121/86 121/86 Pulse Ox 97 98 O2 Delivery Nasal Cannula Nasal Cannula O2 Flow Rate 2.0 1.0 06/05/17 06/05/17 06/05/17 06/05/17 12:45 13:10 13:11 15:00 Temp 97.7 97.7 Pulse 108 106 108 93 Resp 18 B/P (MAP) 121/86 120/72 120/72 120/81 (94) Pulse Ox 95 O2 Delivery Room Air 06/05/17 06/05/17 06/05/17 06/05/17 15:36 16:42 19:00 20:00 Temp 97.9 97.9 Pulse 108 97 Resp 18 B/P (MAP) 120/72 117/73 (88) Pulse Ox 94 O2 Delivery Nasal Cannula Room Air O2 Flow Rate 1.0 06/05/17 06/05/17 06/05/17 06/06/17 20:58 21:20 23:00 03:00 Temp 98.4 98.0 98.4 98.0 Pulse 97 94 109 Resp 24 16 B/P (MAP) 117/73 132/88 (103) 144/84 (104) Pulse Ox 97 97 93 O2 Delivery Nasal Cannula O2 Flow Rate 1.0 06/06/17 06/06/17 07:00 07:47 Temp 97.9 97.9 Pulse 106 Resp 20 B/P (MAP) 133/88 (103) Pulse Ox 95 97 O2 Delivery Nasal Cannula Nasal Cannula O2 Flow Rate 2.0 1.0 Intake and Output 06/05/17 06/05/17 06/06/17 15:00 23:00 07:00 Intake Total 1200 ml Balance 1200 ml SHAYNA MANN MD Jun 06, 2017 09:50
[2017-06-06] MEDS ORDERED: METOPROLOL TARTRATE 5 MG/5 ML VIAL. IVP PRN (10:00)
[2017-06-06] MEDS: IV RINGERS,LACTATED 1000ML 1,000 ML IV SCH (13:00)
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
--- NOTE | 2017-06-06 13:58 | PDOC ---
PULMONARY PROGRESS NOTES Subjective NO NEW COMPLAINTS Vitals Vital Signs Date Time Temp Pulse Resp B/P (MAP) Pulse Ox O2 Delivery O2 Flow Rate FiO2 06/06/17 13:32 126 20 144/95 99 Simple Mask 15 06/06/17 12:28 98.6 98.6 ROS: No Nausea, No Chest Pain General: Alert HEENT: Other (nc at perrl nose throat clear) Lungs: Wheezing Cardiovascular: S1, S2 Abdomen: Soft, Non-tender Neuro Exam: Alert Extremities: No Edema Skin: Warm Labs Laboratory Tests Test 06/06/17 04:00 06/06/17 04:20 White Blood Count 10.9 x10^3/uL (4.0-11.0) Red Blood Count 4.44 x10^6/uL (3.50-5.40) Hemoglobin 11.8 g/dL (12.0-15.5) Hematocrit 36.1 % (36.0-47.0) Mean Corpuscular Volume 81 fL (79-100) Mean Corpuscular Hemoglobin 27 pg (25-35) Mean Corpuscular Hemoglobin Concent 33 g/dL (31-37) Red Cell Distribution Width 15.9 % (11.5-14.5) Platelet Count 481 x10^3/uL (140-400) Neutrophils (%) (Auto) 79 % (31-73) Lymphocytes (%) (Auto) 13 % (24-48) Monocytes (%) (Auto) 6 % (0-9) Eosinophils (%) (Auto) 1 % (0-3) Basophils (%) (Auto) 0 % (0-3) Neutrophils # (Auto) 8.6 x10^3uL (1.8-7.7) Lymphocytes # (Auto) 1.4 x10^3/uL (1.0-4.8) Monocytes # (Auto) 0.6 x10^3/uL (0.0-1.1) Eosinophils # (Auto) 0.2 x10^3/uL (0.0-0.7) Basophils # (Auto) 0.0 x10^3/uL (0.0-0.2) Sodium Level 137 mmol/L (136-145) Potassium Level 3.9 mmol/L (3.5-5.1) Chloride Level 101 mmol/L (98-107) Carbon Dioxide Level 26 mmol/L (21-32) Anion Gap 10 (6-14) Blood Urea Nitrogen 8 mg/dL (7-20) Creatinine 0.6 mg/dL (0.6-1.0) Estimated GFR (Cockcroft-Gault) 98.3 BUN/Creatinine Ratio 13 (6-20) Glucose Level 107 mg/dL (70-99) Calcium Level 7.9 mg/dL (8.5-10.1) Total Bilirubin 0.4 mg/dL (0.2-1.0) Aspartate Amino Transf (AST/SGOT) 10 U/L (15-37) Alanine Aminotransferase (ALT/SGPT) 17 U/L (14-59) Alkaline Phosphatase 95 U/L (46-116) Total Protein 6.3 g/dL (6.4-8.2) Albumin 2.3 g/dL (3.4-5.0) Albumin/Globulin Ratio 0.6 (1.0-1.7) Laboratory Tests Test 06/06/17 04:00 06/06/17 04:20 White Blood Count 10.9 x10^3/uL (4.0-11.0) Red Blood Count 4.44 x10^6/uL (3.50-5.40) Hemoglobin 11.8 g/dL (12.0-15.5) Hematocrit 36.1 % (36.0-47.0) Mean Corpuscular Volume 81 fL (79-100) Mean Corpuscular Hemoglobin 27 pg (25-35) Mean Corpuscular Hemoglobin Concent 33 g/dL (31-37) Red Cell Distribution Width 15.9 % (11.5-14.5) Platelet Count 481 x10^3/uL (140-400) Neutrophils (%) (Auto) 79 % (31-73) Lymphocytes (%) (Auto) 13 % (24-48) Monocytes (%) (Auto) 6 % (0-9) Eosinophils (%) (Auto) 1 % (0-3) Basophils (%) (Auto) 0 % (0-3) Neutrophils # (Auto) 8.6 x10^3uL (1.8-7.7) Lymphocytes # (Auto) 1.4 x10^3/uL (1.0-4.8) Monocytes # (Auto) 0.6 x10^3/uL (0.0-1.1) Eosinophils # (Auto) 0.2 x10^3/uL (0.0-0.7) Basophils # (Auto) 0.0 x10^3/uL (0.0-0.2) Sodium Level 137 mmol/L (136-145) Potassium Level 3.9 mmol/L (3.5-5.1) Chloride Level 101 mmol/L (98-107) Carbon Dioxide Level 26 mmol/L (21-32) Anion Gap 10 (6-14) Blood Urea Nitrogen 8 mg/dL (7-20) Creatinine 0.6 mg/dL (0.6-1.0) Estimated GFR (Cockcroft-Gault) 98.3 BUN/Creatinine Ratio 13 (6-20) Glucose Level 107 mg/dL (70-99) Calcium Level 7.9 mg/dL (8.5-10.1) Total Bilirubin 0.4 mg/dL (0.2-1.0) Aspartate Amino Transf (AST/SGOT) 10 U/L (15-37) Alanine Aminotransferase (ALT/SGPT) 17 U/L (14-59) Alkaline Phosphatase 95 U/L (46-116) Total Protein 6.3 g/dL (6.4-8.2) Albumin 2.3 g/dL (3.4-5.0) Albumin/Globulin Ratio 0.6 (1.0-1.7) Medications Active Scripts Medications Dose Route/Sig Max Daily Dose Days Date Category Eliquis (Apixaban) 5 Mg Tablet 5 Mg PO BID 06/02/17 Reported Diltiazem Hcl Tablet (Diltiazem Hcl) 60 Mg Tablet 120 Mg PO BID 06/02/17 Reported Penicillin V Potassium 500 Mg Tablet 1 Tab PO TID 05/31/17 Reported Amlodipine-Benazepril 5-20 Mg (Amlodipine Besylate/Benazepril) 1 Each Capsule 1 Cap PO DAILY 05/31/17 Reported Hydrochlorothiazide Tablet (Hydrochlorothiazide) 25 Mg Tablet 1 Tab PO DAILY 05/31/[address] of chest reviewed, Marked consolidation or infiltrative mass (neoplastic) in the left upper lobe. The latter is favored. There is associated hilar and mediastinal adenopathy. There is significant narrowing of an upper lobe bronchus. Bronchoscopy should be considered for additional evaluation. Indeterminate nodules and opacities in the right lung. Left adrenal mass. Metastatic disease should be Impression . 1. Progressive dyspnea secondary to acute exacerbation of chronic obstructive pulmonary disease and postobstructive pneumonia. 2. Abnormal CT of the chest as described above with multiple findings including left upper lobe mass, hilar and mediastinal adenopathy and postobstructive pneumonia. 3. Stage IV adenoca unknown primary 4. Chronic atrial fibrillation, on anticoagulation. 5. Malnutrition, present upon admission, based upon weight loss and low albumin. 6. 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 Butt. 7. Tooth abscess. 8. Tobacco dependence. 9. allergic rhinitis Plan . PLAN: 1. Eliquis on hold, BRONCH INCONCLUSIVE D/W DR Ariel BUTT AND IR WILL PROCEED WITH BX OF VERITO. 2. Continue current antibiotics. 3. follow onc input 4. Continue antibiotics. 5. Nebulized treatments. 6. Nicotine replacement. 7. The patient instructed on the importance of discontinuing her tobacco use. 8. Consult dietitian for protein malnutrition. discussed w pt. 9. CYNTHIA Sanchez MD Jun 06, 2017 13:58
[2017-06-06] MEDS: dilTIAZem HCL 30 MG TABLET PO SCH ×3 (14:00→20:50)
[2017-06-06] MEDS: ASPIRIN ENTERIC COATED 81 MG TABLET.DR. PO SCH (16:43)
[2017-06-06] MEDS: DIGOXIN 125 MCG TABLET. PO SCH (16:44)
--- NOTE | 2017-06-06 19:21 | OP ---
DATE OF SURGERY: 06/06/2017 ATTENDING PHYSICIAN: Dr. Rachel Payne. PROCEDURE: Bronchoscopy, lavage of the left upper lobe. INDICATIONS: The patient with stage IV adenocarcinoma of unknown primary. She had an abdominal wall and left arm mass that was biopsied. The abdominal biopsy proven to be adenocarcinoma of the breast, GI and origin. She has had right breast mass, which appeared benign. Followup mammography is recommended in 6 months. She presents with 8 cm left upper lobe hilar mediastinal adenopathy with left adrenal mass. There was also narrowing of the left upper lobe bronchus along with consolidated infiltrating mass of the left upper lobe. The patient undergoing a diagnostic bronchoscopy. Risks, benefits, and alternatives were reviewed with the patient. She consented. The patient was initially on Eliquis, which has been held now for 4 days. SEDATION: Please see anesthesia's notes. DESCRIPTION OF PROCEDURE: Timeout was performed prior to sedation. Vital signs and O2 saturations were maintained within normal limits throughout the procedure, except for the end of the procedure the patient started to desaturate, procedure was then terminated, and the patient was successfully resuscitated with bag valve mask with 100% increase in saturation within 30 seconds to above 92%. The patient was sedated as described above. Bronchoscope was passed through the left naris. The vocal cords were identified moving bilaterally without any dysfunction. The vocal cords were then anesthetized with a total of 5 mL of 4% lidocaine. Bronchoscope was passed through the vocal cords into the proximal trachea. The right segments were visualized. There were pretty thick secretions on the right side, which was aspirated back. The patient started to cough. With the cough, she started to have oozing and bleeding from the left upper lobe. I was never really able to clear the secretions and the blood to visualize the left upper lobe bronchus. There appeared to be mucosal abnormality of the left upper lobe bronchus, but I was never really able to visualize any endobronchial lesions. The exam was inconclusive. As indicated above, the patient started to have periods of desaturation with the extra sedation. The case was terminated. We bagged her for no more than 30 seconds increasing her saturations to 95%. There was no immediate complication. Heart rate remained within normal limits. FINDINGS: 1. Normal vocal cords. 2. Thick mucus with some mucus plugging, mostly on the right. 3. Oozing and bleeding from coughing and scope trauma prior to being able to visualize any endobronchial lesion ____ mucosal abnormality of the left upper lobe. We will await the BAL results, discussed the case with Medical Oncology, possibly proceed with left adrenal mass biopsy. The patient tolerated procedure well except for minor desaturation as described above. No immediate complications. CYNTHIA COOPER MD DR: JIMBO/carmine JOB#: [id number] / [id number]
[2017-06-06] MEDS: NICOTINE 14MG PATCH. TD PRN (19:42)
[2017-06-06] MEDS: MONTELUKAST SODIUM 10 MG TABLET. PO SCH (20:49)
[2017-06-07] MEDS: IV RINGERS,LACTATED 1000ML 1,000 ML IV SCH (03:05)
[2017-06-07 07:00] VITALS: BP 130/83
[2017-06-07] MEDS: IPRATRPIUM/ALBUTEROL 0.5/2.5MG 3 ML NEBU. NEB SCH ×4 (07:33→18:22)
[2017-06-07] MEDS: IV NORMAL SALINE 1000ML BAG 1,000 ML IV SCH (08:45)
[2017-06-07] MEDS ORDERED: LIDOCAINE 1% / SOD BICARB 8.4% 20 ML VIAL. IJ ONE (09:19)
[2017-06-07] MEDS ORDERED: fentaNYL PF VIAL 100 MCG/2 ML VIAL ONE (09:19)
[2017-06-07] MEDS ORDERED: MIDAZOLAM HCL/PF 2 MG/2 ML VIAL. ONE (09:19)
--- NOTE | 2017-06-07 09:49 | PDOC ---
Provider Note Provider Note Mrs Arroyo was brought to the IR Dept today for possible CT guided biopsy of left upper lobe consolidation. She has known metastatic adenocarcinoma, with a large left hilar mass and resultant left upper lobe consolidation with could be mass, post obstructive atelectasis or a combination thereof. Unfortunately on today's preliminary imaging, her entire left upper lobe is now collapsed with obstruction of the upper lobe bronchi. I cannot differentiate between atelectasis or underlying mass, and therefore have no readily identifiable target for transthoracic biopsy. LUIZ MENDEZ MD Jun 07, 2017 09:49
--- NOTE | 2017-06-07 10:07 | PDOC ---
PROGRESS NOTES Chief Complaint Chief Complaint Acute hypoxic respir failure ASSESSMENT AND PLAN: 1. Hypoxia: multifactorial, incl COPD, malignancy. 6 min walk did not show need for home O2. 2. Lung mass: primary vs secondary CA; transthoracic bx aborted today due to complete "white-out", targe not identifiable. Bronch yesterday "inconclusive ", BAL obtained, awaiting cytology. d/w Dr Strong: consider mediastinoscopy 3. Metastatic dz: abd wall bx with adenoCA, favoring breast/ (GI), not lung. marker studies pending 4. Afib: cont dig, CCB, BB added 5 OAC: eliquis on hold for procedures 6. Tobaccoism: on nicotine patch 7. Moderate hypoalbuminemia: 2/2 inflammation/malignancy and malnutrition. nutrition consult History of Present Illness History of Present Illness SOB; scared about difficulty to find a diagnosis Vitals Vitals Vital Signs Date Time Temp Pulse Resp B/P (MAP) Pulse Ox O2 Delivery O2 Flow Rate FiO2 06/07/17 07:36 98 Nasal Cannula 4.0 06/07/17 07:00 97.9 105 20 130/83 (99) 97.9 Physical Exam Physical Exam RAMIRES, cough with scant sputum. no fever General: Alert, Oriented X3, Cooperative, No acute distress Heart: Regular rate Abdomen: Other (UA rhonchi, part clearing w/ cough. R lung absent breath sounds in lower half) Extremities: No edema Skin: No rashes MICHELLE TOM MD Jun 07, 2017 10:07
[2017-06-07 11:00] VITALS: BP 128/71
[2017-06-07] MEDS: dilTIAZem HCL 30 MG TABLET PO SCH ×4 (12:00→23:54)
[2017-06-07] MEDS: ASPIRIN ENTERIC COATED 81 MG TABLET.DR. PO SCH (13:08)
[2017-06-07] MEDS: DIGOXIN 125 MCG TABLET. PO SCH (13:08)
[2017-06-07 15:00] VITALS: BP 112/72
--- NOTE | 2017-06-07 15:56 | RAD ---
Limited CT of the chest 06/07/2017 Indication: Possible lung biopsy Discussion: The patient is a 71-year-old female who was brought to the interventional radiology department for possible transthoracic needle biopsy of the left upper lobe mass extending to the hilum. The patient was placed on the CT scanner in the supine position. Imaging of the chest was obtained however in the interim since prior study patient health complete atelectasis of left upper lobe. Small left pleural effusion is also noted. Underlying mass and atelectatic lung cannot be distinguished. Findings likely represent postobstructive atelectasis due to left hilar mass. Transthoracic biopsy was therefore not performed at current time. Impression: Complete atelectasis of the left upper lobe obscuring the possible left upper lobe mass. No targetable lesion left lung is identified at current. 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
--- NOTE | 2017-06-07 16:39 | PDOC2 ---
CONSULT Date of Consult Date of Consult DATE: 06/07/17 TIME: 16:27 Reason for Consult Reason for Consult: Mediastinal adenopathy with left upper lobe mass Referring Physician Referring Physician: Dr Arzola Identification/Chief Complaint Chief Complaint Shortness of breath Problems: Source Source: Chart review, Patient History of Present Illness Reason for Visit: The patient is a 71-year-old female who was recently found to have an abdominal wall mass which was biopsied and came back as an adenocarcinoma consistent with GI/ or breast primary. Mammography was negative for malignancies. CT of the chest also demonstrated a large left upper lobe mass, most likely in an endobronchial left upper lobe tumor with associated atelectasis. There is also significant mediastinal adenopathy. The patient underwent flexible bronchoscopy , which was aborted owing to the patient coughing with associated airway bleeding. She then underwent an IR attempted biopsy which was also unsuccessful. It is possible that she has to primary cancers. As of now the intrathoracic tumor does not have a diagnosis. The patient complains of shortness of breath for the past 4-6 weeks. She also reports anorexia and weight loss. The patient has been on Eliquis for atrial fibrillation but has not taken any for several days. I was consulted to consider the patient for cervical mediastinoscopy. Past Medical History Cardiovascular: HTN Hepatobiliary: No pertinent hx Psych: No pertinent hx Musculoskeletal: Osteoarthritis Rheumatologic: No pertinent hx Infectious disease: No pertinent hx ENT: Other (tooth abscess) Renal/: No pertinent hx Endocrine: No pertinent hx Dermatology: Other (right abdominal cyst) Past Surgical History Past Surgical History: Other (right abdominal bx 1 wk ago; wisdome tooth extraction) Family History Family History: No Significant Social History <1 pack per day (>50 yrs) ALCOHOL: none Drugs: None Lives: Alone Current Problem List Problem List Problems Medical Problems: (1) Acute respiratory failure Status: Acute (2) Pulmonary mass Status: Acute Current Medications Current Medications Current Medications Iohexol (Omnipaque 300 Mg/ml) 75 ml 1X ONCE IV Last administered on 06/02/17t 13:12; Start 06/02/17 at 13:00; Stop 06/02/17 at 13:01; Status DC Info (Do NOT chart on this entry -- for MONITORING) 1 each PRN DAILY PRN MC SEE COMMENTS; Start 06/02/17 at 13:00; Stop 06/03/17 at 14:18; Status DC Ondansetron HCl (Zofran) 4 mg PRN Q8HRS PRN IV NAUSEA/VOMITING; Start 06/02/17 at 13:45; Stop 06/03/17 at 13:44; Status DC Levofloxacin/ Dextrose (Levaquin Per Pharmacy) 1 each PRN DAILY PRN MC SEE COMMENTS; Start 06/02/17 at 13:45 Levofloxacin/ Dextrose 100 ml @ 100 mls/hr Q24H IV Last administered on 13:09; Start 06/02/17 at 14:00 Aspirin (Ecotrin) 81 mg [id number] PO Last administered on 06/07/17 13:08; Start 06/02/17 at 17:00 Sodium Chloride 1,000 ml @ 80 mls/hr [id number] IV Last administered on 08:45; Start 06/02/17 at 16:15 Diltiazem HCl (Cardizem 24hr Cd) 120 mg BID PO ; Start 06/02/17 at 21:00; Stop 06/02/17 at 21:00; Status DC Albuterol/ Ipratropium (Duoneb) 3 ml RTQID NEB Last administered on 06/07/17 07:33; Start 06/02/17 at 20:00 Guaifenesin (Robitussin Dm) 10 ml PRN Q6HRS PRN PO COUGH Last administered on 20:50; Start 06/02/17 at 16:45 Nicotine (Nicoderm Cq 14mg) 1 patch PRN DAILY PRN TD SMOKING CESSATION Last administered on 06/06/17 19:42; Start 06/02/17 at 16:45 Nicotine Polacrilex (Nicorette Gum) 1 each PRN Q1HR PRN BC SMOKING CESSATION; Start 06/02/17 at 16:45 Docusate Sodium (Colace) 100 mg PRN DAILY PRN PO CONSTIPATION; Start 06/02/17 at 16:45 Zolpidem Tartrate (Ambien) 5 mg PRN QHS PRN PO INSOMNIA; Start 06/02/17 at 16: 45 Iohexol (Omnipaque 300 Mg/ml) 75 ml 1X ONCE IV Last administered on 06/03/17 12:46; Start 06/03/17 at 12:00; Stop 06/03/17 at 12:01; Status DC Info (Do NOT chart on this entry -- for MONITORING) 1 each PRN DAILY PRN MC SEE COMMENTS; Start 06/03/17 at 12:00; Stop 06/05/17 at 11:59; Status DC Diltiazem HCl (Cardizem 24hr Cd) 120 mg DAILY PO ; Start 06/03/17 at 13:00; Stop 06/03/17 at 13:00; Status DC Digoxin (Lanoxin) 125 mcg DAILY PO Last administered on 06/07/17 13:08; Start 06/03/17 at 13:00 Diltiazem HCl (Cardizem) 30 mg Q12HR PO Last administered on 06/05/17 12:18; Start 06/03/17 at 21:00; Stop 06/05/17 at 12:46; Status DC Diltiazem HCl (Cardizem) 60 mg TID PO Last administered on 06/06/17 20:50; Start 06/05/17 at 12:45; Stop 06/07/17 at 08:14; Status DC Metoprolol Tartrate (Lopressor) 5 mg 1X ONCE IVP Last administered on 13:10; Start 06/05/17 at 12:45; Stop 06/05/17 at 12:52; Status DC Digoxin (Lanoxin) 125 mcg 1X ONCE IV Last administered on 06/05/17 13:11; Start 06/05/17 at 13:00; Stop 06/05/17 at 13:01; Status DC Montelukast Sodium (Singulair) 10 mg QHS PO Last administered on 06/06/17 20: 49; Start 06/05/17 at 21:00 Metoprolol Tartrate (Lopressor) 5 mg PRN Q6HRS PRN IVP afib w. RVR; Start 06/06 at 10:00 Ringer's Solution 1,000 ml @ 75 mls/hr [id number] IV Last administered on 13:00; Start 06/06/17 at 13:45; Stop 06/07/17 at 14:58; Status DC Diltiazem HCl (Cardizem) 60 mg Q6HRS PO Last administered on 7/25/17at 13:07; Start 06/07/17 at 08:00 Lidocaine/Sodium Bicarbonate (Buffered Lidocaine 1%) 20 ml STK-MED ONCE IJ ; Start 06/07/17 at 09:19; Stop 06/07/17 at 09:20; Status DC Fentanyl Citrate (Fentanyl 2ml Vial) 100 mcg STK-MED ONCE .ROUTE ; Start at 09:19; Stop 06/07/17 at 09:20; Status DC Midazolam HCl (Versed) 2 mg STK-MED ONCE .ROUTE ; Start 06/07/17 at 09:19; Stop 06/07/17 at 09:20; Status DC Active Scripts Active Reported Eliquis (Apixaban) 5 Mg Tablet 5 Mg PO BID Diltiazem Hcl Tablet (Diltiazem Hcl) 60 Mg Tablet 120 Mg PO BID Penicillin V Potassium 500 Mg Tablet 1 Tab PO TID Amlodipine-Benazepril 5-20 Mg (Amlodipine Besylate/Benazepril) 1 Each Capsule 1 Cap PO DAILY Hydrochlorothiazide Tablet (Hydrochlorothiazide) 25 Mg Tablet 1 Tab PO DAILY Allergies Allergies: Coded Allergies: No Known Drug Allergies (Unverified , 05/31/17) ROS General: YES: Fatigue, Appetite PSYCHOLOGICAL ROS: YES: Depression Eyes: No Blurry vision, No Decreased vision, No Double vision, No Dry eyes, No Excessive tearing, No Eye Pain, No Itchy Eyes, No Loss of vision, No Photophobia , No Scotomata, No Uses contacts, No Uses glasses HEENT: No: Heacaches, Visual Changes, Hearing change, Nasal congestion, Nasal discharge, Oral lesions, Sinus pain, Sore Throat, Epistaxis, Sneezing, Snoring, Tinnitus, Vertigo, Vocal changes ALLERGY AND IMMUNOLOGY: No: Hives, Insect Bite Sensitivity, Itchy/Watery Eyes, Nasal Congestion, Post Nasal Drip, Seasonal Allergies Hematological and Lymphatic: No: Bleeding Problems, Blood Clots, Blood Transfusions, Brusing, Night Sweats, Pallor, Swollen Lymph Nodes ENDOCRINE: No: Breast Changes, Galactorrhea, Hair Pattern Changes, Hot Flashes , Malaise/lethargy, Mood Swings, Palpitations, Polydipsia/polyuria, Skin Changes , Temperature Intolerance, Unexpected Weight Changes Breast: New/Changing Breast Lumps Respiratory: YES: Cough, Pleuritic Pain, Shortness of breath Cardiovascular: No Chest Pain, No Palpitations, No Orthopnea, No Paroxysmal Noc. Dyspnea, No Edema, No Lt Headedness Gastrointestinal: No Nausea, No Vomiting, No Abdominal Pain, No Diarrhea, No Constipation, No Melena, No Other Genitourinary: No Dysuria, No Frequency, No Incontinence, No Hematuria, No Retention, No Discharge, No Urgency, No Pain, No Flank Pain Musculoskeletal: No Gait Disturbance, No Joint Pain, No Joint Stiffness, No Joint Swelling, No Muscle Pain, No Muscular Weakness, No Pain In:, No Swelling In: Neurological: No Behavorial Changes, No Bowel/Bladder ControlChng, No Confusion , No Dizziness, No Gait Disturbance, No Headaches, No Impaired Coord/balance, No Memory Loss, No Numbness/Tingling, No Seizures, No Speech Problems, No Tremors, No Visual Changes, No Weakness Skin: Yes Lumps Physical Exam General: Alert, Oriented X3, No acute distress HEENT: Atraumatic, PERRLA Lungs: Clear to auscultation Heart: Regular rate, Normal S1, Normal S2 Abdomen: Soft, No hepatosplenomegaly Extremities: No edema Skin: No breakdown Neuro: Normal gait, Normal speech, Strength at 5/5 X4 ext, Normal tone MUSCULOSKELETAL: No deformity Vitals VITALS Vital Signs Date Time Temp Pulse Resp B/P (MAP) Pulse Ox O2 Delivery O2 Flow Rate FiO2 06/07/17 15:00 97.9 56 20 112/72 (85) 97 Nasal Cannula 3.0 97.9 Labs Labs Laboratory Tests Test 06/06/17 04:00 06/06/17 04:20 White Blood Count 10.9 x10^3/uL (4.0-11.0) Red Blood Count 4.44 x10^6/uL (3.50-5.40) Hemoglobin 11.8 g/dL (12.0-15.5) Hematocrit 36.1 % (36.0-47.0) Mean Corpuscular Volume 81 fL (79-100) Mean Corpuscular Hemoglobin 27 pg (25-35) Mean Corpuscular Hemoglobin Concent 33 g/dL (31-37) Red Cell Distribution Width 15.9 % (11.5-14.5) Platelet Count 481 x10^3/uL (140-400) Neutrophils (%) (Auto) 79 % (31-73) Lymphocytes (%) (Auto) 13 % (24-48) Monocytes (%) (Auto) 6 % (0-9) Eosinophils (%) (Auto) 1 % (0-3) Basophils (%) (Auto) 0 % (0-3) Neutrophils # (Auto) 8.6 x10^3uL (1.8-7.7) Lymphocytes # (Auto) 1.4 x10^3/uL (1.0-4.8) Monocytes # (Auto) 0.6 x10^3/uL (0.0-1.1) Eosinophils # (Auto) 0.2 x10^3/uL (0.0-0.7) Basophils # (Auto) 0.0 x10^3/uL (0.0-0.2) Sodium Level 137 mmol/L (136-145) Potassium Level 3.9 mmol/L (3.5-5.1) Chloride Level 101 mmol/L (98-107) Carbon Dioxide Level 26 mmol/L (21-32) Anion Gap 10 (6-14) Blood Urea Nitrogen 8 mg/dL (7-20) Creatinine 0.6 mg/dL (0.6-1.0) Estimated GFR (Cockcroft-Gault) 98.3 BUN/Creatinine Ratio 13 (6-20) Glucose Level 107 mg/dL (70-99) Calcium Level 7.9 mg/dL (8.5-10.1) Total Bilirubin 0.4 mg/dL (0.2-1.0) Aspartate Amino Transf (AST/SGOT) 10 U/L (15-37) Alanine Aminotransferase (ALT/SGPT) 17 U/L (14-59) Alkaline Phosphatase 95 U/L (46-116) Total Protein 6.3 g/dL (6.4-8.2) Albumin 2.3 g/dL (3.4-5.0) Albumin/Globulin Ratio 0.6 (1.0-1.7) Images Images 1. Enlarged lymph node in the right groin as well as some subcutaneous nodules seen at the abdomen and pelvis. Although its possible that this is secondary to a reactive right groin lymph node and benign causes such as subcutaneous small hematomas, neoplastic etiology from metastatic disease can have this appearance. 2. There are multiple lesions within the liver. Largest of which has the appearance of a cystic lesion but one in the left lobe of the liver inferiorly measures higher attenuation. This is nonspecific in nature and can be seen with both benign causes such as hemangioma or cyst with debris as well as malignant causes such as metastasis within the differential. If further clarification is desired MRI liver protocol could further evaluate. 3. Masslike thickening of the left adrenal gland. If further clarification is desired MRI adrenal protocol could be obtained to assess whether this is from an adenoma or neoplastic causes. 4. Calcific atherosclerosis. 5. Gallstones. 6. There is some nodularity along the subpleural region at the bilateral lung bases. Assessment/Plan Assessment/Plan 71-year-old female, lifelong smoker, found to have a left upper lobe mass, likely left upper lobe endobronchial, with mediastinal adenopathy. Flexible bronchoscopy and IR guided biopsy have been unsuccessful in providing a diagnosis. Interestingly she has abdominal wall mass which was biopsied and was consistent with an adenocarcinoma, which is non-lung primary. Will plan for cervical mediastinoscopy in order to attempt biopsy of her subcarinal and left paratracheal space, which have fullness on the CT, although discrete lymph nodes are not obvious. I will also attempt a flexible bronchoscopy. This will be done under general anesthesia and it may be easier to obtain samples from the left upper lobe bronchus. The risks which include but are not limited to major vascular injury requiring median sternotomy, recurrent laryngeal nerve injury, failure to obtain a diagnosis were explained in detail the patient. She agrees to proceed. She has been off Eliquis for several days. Cervical mediastinal endoscopy and flexible bronchoscopy tomorrow June 08, 2017 at 12:30 PM. Informed consent Type and screen Nothing by mouth after midnight If procedure is uneventful, she will be able to be discharged home tomorrow, as per primary team. NOEMÍ HELM MD Jun 07, 2017 16:39
--- NOTE | 2017-06-07 17:17 | PDOC ---
CARDIO Progress Notes Date and Time Date of Service 06/07/2017 Time of Evaluation 1700 Subjective Subjective: No Chest Pain, No Palpitations, No Dizziness, Other Vitals Vitals Vital Signs Date Time Temp Pulse Resp B/P (MAP) Pulse Ox O2 Delivery O2 Flow Rate FiO2 06/07/17 16:17 97 Nasal Cannula 3.0 06/07/17 15:00 97.9 56 20 112/72 (85) 97.9 Weight Weight [ ] Input and Output Intake and Output Intake and Output 06/07/17 07:00 Intake Total 1600 ml Balance 1600 ml Intake Oral 1100 ml IV Total 500 ml # Voids 8 Microbiology Micro Microbiology 06/02/17 Blood Culture - Final, Complete NO GROWTH AFTER 5 DAYS 06/06/17 Gram Stain - Final, Complete Physical Exam HEENT: Neck Supple W Full Motion Chest: Symmetric LUNGS: Other (upper rhonchi) Heart: S1S2, irregularly irregular (off tele) Abdomen: Soft N/T Extremities: No Calf Tenderness, Other (1+ bilateral LE pitting edema) Neurology: alert, oriented, follow commands Assessment Assessment 1. Atypical CP: pleuritic r/t #2 2. Left lung mass with metastasis with possible pneumonia: S/P bronchoscopy. mediastinal biopsy tomorrow 3. New onset AFIB/atrial flutter: rate better controlled 5. HTN: controlled Recommendations 1. Continue ASA. Will resume Eliquis once biopsies are completely done. May resume when clear with pulmonary and CTS 2. Continue Shana palacios JHUNNE M APRN Jun 07, 2017 17:17
--- NOTE | 2017-06-07 17:20 | PDOC ---
PULMONARY PROGRESS NOTES Subjective PT HAD A LITTLE HEMOPTYSIS YESTERDAY NONE TODAY NOT MORE SOA Vitals Vital Signs Date Time Temp Pulse Resp B/P (MAP) Pulse Ox O2 Delivery O2 Flow Rate FiO2 06/07/17 16:17 97 Nasal Cannula 3.0 06/07/17 15:00 97.9 56 20 112/72 (85) 97.9 ROS: No Nausea, No Chest Pain General: Alert HEENT: Other (nc at perrl nose throat clear) Cardiovascular: S1, S2 Abdomen: Soft, Non-tender Neuro Exam: Alert Extremities: No Edema Skin: Warm Labs Laboratory Tests Test 06/06/17 04:00 06/06/17 04:20 White Blood Count 10.9 x10^3/uL (4.0-11.0) Red Blood Count 4.44 x10^6/uL (3.50-5.40) Hemoglobin 11.8 g/dL (12.0-15.5) Hematocrit 36.1 % (36.0-47.0) Mean Corpuscular Volume 81 fL (79-100) Mean Corpuscular Hemoglobin 27 pg (25-35) Mean Corpuscular Hemoglobin Concent 33 g/dL (31-37) Red Cell Distribution Width 15.9 % (11.5-14.5) Platelet Count 481 x10^3/uL (140-400) Neutrophils (%) (Auto) 79 % (31-73) Lymphocytes (%) (Auto) 13 % (24-48) Monocytes (%) (Auto) 6 % (0-9) Eosinophils (%) (Auto) 1 % (0-3) Basophils (%) (Auto) 0 % (0-3) Neutrophils # (Auto) 8.6 x10^3uL (1.8-7.7) Lymphocytes # (Auto) 1.4 x10^3/uL (1.0-4.8) Monocytes # (Auto) 0.6 x10^3/uL (0.0-1.1) Eosinophils # (Auto) 0.2 x10^3/uL (0.0-0.7) Basophils # (Auto) 0.0 x10^3/uL (0.0-0.2) Sodium Level 137 mmol/L (136-145) Potassium Level 3.9 mmol/L (3.5-5.1) Chloride Level 101 mmol/L (98-107) Carbon Dioxide Level 26 mmol/L (21-32) Anion Gap 10 (6-14) Blood Urea Nitrogen 8 mg/dL (7-20) Creatinine 0.6 mg/dL (0.6-1.0) Estimated GFR (Cockcroft-Gault) 98.3 BUN/Creatinine Ratio 13 (6-20) Glucose Level 107 mg/dL (70-99) Calcium Level 7.9 mg/dL (8.5-10.1) Total Bilirubin 0.4 mg/dL (0.2-1.0) Aspartate Amino Transf (AST/SGOT) 10 U/L (15-37) Alanine Aminotransferase (ALT/SGPT) 17 U/L (14-59) Alkaline Phosphatase 95 U/L (46-116) Total Protein 6.3 g/dL (6.4-8.2) Albumin 2.3 g/dL (3.4-5.0) Albumin/Globulin Ratio 0.6 (1.0-1.7) Medications Active Scripts Medications Dose Route/Sig Max Daily Dose Days Date Category Eliquis (Apixaban) 5 Mg Tablet 5 Mg PO BID 06/02/17 Reported Diltiazem Hcl Tablet (Diltiazem Hcl) 60 Mg Tablet 120 Mg PO BID 06/02/17 Reported Penicillin V Potassium 500 Mg Tablet 1 Tab PO TID 05/31/17 Reported Amlodipine-Benazepril 5-20 Mg (Amlodipine Besylate/Benazepril) 1 Each Capsule 1 Cap PO DAILY 05/31/17 Reported Hydrochlorothiazide Tablet (Hydrochlorothiazide) 25 Mg Tablet 1 Tab PO DAILY 05/31/[address] of chest reviewed, Marked consolidation or infiltrative mass (neoplastic) in the left upper lobe. The latter is favored. There is associated hilar and mediastinal adenopathy. There is significant narrowing of an upper lobe bronchus. Bronchoscopy should be considered for additional evaluation. Indeterminate nodules and opacities in the right lung. Left adrenal mass. Metastatic disease should be Impression . 1. Progressive dyspnea secondary to acute exacerbation of chronic obstructive pulmonary disease and postobstructive pneumonia. 2. Abnormal CT of the chest as described above with multiple findings including left upper lobe mass, hilar and mediastinal adenopathy and postobstructive pneumonia. 3. Stage IV adenoca unknown primary 4. Chronic atrial fibrillation, on anticoagulation. 5. Malnutrition, present upon admission, based upon weight loss and low albumin. 6. 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 Butt. 7. Tooth abscess. 8. Tobacco dependence. 9. allergic rhinitis Plan . D/W IR UNABLE TO BIOPSY ANYTHING SEC TO COLLAPSE LUNG D/W DR HLEM WILL PROCEED WITH CERVICAL MED BRONCH INCONCLUSIVE D/W DR Ariel BUTT, WILL PROCEED WITH ABOVE ANITBX NEBS PT AWARE OF ABOVE SHE AGREES CYNTHIA COOPER MD Jun 07, 2017 17:20
[2017-06-07 18:18] LABS: INR 1.1 (0.8-1.1); PROTHROMBIN TIME PATIENT 13.4 SEC (11.7-14.0)
[2017-06-07 19:00] VITALS: BP 119/76
[2017-06-07] MEDS: MONTELUKAST SODIUM 10 MG TABLET. PO SCH (20:21)
[2017-06-07 23:00] VITALS: BP 117/71
[2017-06-08] MEDS: IV NORMAL SALINE 1000ML BAG 1,000 ML IV SCH (01:40)
[2017-06-08] MEDS: guaiFENesin DM 200MG/20MG 10 ML SYRUP PO PRN (01:43)
[2017-06-08] MEDS: dilTIAZem HCL 30 MG TABLET PO SCH ×2 (06:14→17:51)
[2017-06-08 07:00] VITALS: BP 123/72
[2017-06-08] MEDS: IPRATRPIUM/ALBUTEROL 0.5/2.5MG 3 ML NEBU. NEB SCH ×3 (07:30→15:00)
--- NOTE | 2017-06-08 08:55 | PDOC ---
Subjective: Subjective: Onc f/u- adenoca stage IV, unknown primary Feeling fine Mild improvement in energy Less SOB No new complaints Objective: Vital Signs: Vital Signs Date Time Temp Pulse Resp B/P (MAP) Pulse Ox O2 Delivery O2 Flow Rate FiO2 06/08/17 07:30 97 Nasal Cannula 3.0 06/08/17 07:00 98.2 95 20 123/72 (89) 98.2 Physical Exam: Heart: Regular rate Extremities: No edema General: Alert, Oriented X3, Cooperative, No acute distress HEENT: Other (no resp dsitress) Psych/Mental Status: Mental status NL, Mood NL Labs/Imaging: ER/ TX/ HER2 pending MRI still pending Assessment/Plan A/P: 1. 8 cm VERITO mass, hilar and mediastinal adenopathy, left adrenal mass favoring Stage IV malignancy, radiographically looks like lung primary. Unsuccessful bronch and IR-bx. Planning mediastinoscopy today. 2. Right breast mass, appears benign. F/u mammogram and U/S in 6 mth. 3. 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 Neutrophilia, thrombocytosis- Likely reactive 5. Tobacco abuse with 100 pyh- Recently had started cutting down 6. A fib. Holding eliquis for until after procedures. Pathology and breast mass favor breast origin, but could have 2 primaries with massive lung mass/ smoking history as well. Plan: - F/U ER/ TX/ HER2 - Mediastinoscopy today - MRI head, liver for staging and eval of liver/ adrenal lesions- pending as machine down, may need to do as outpt - Will discuss at tumor conference next Tu - F/u planned with me early next week to review results Ok to DC after procedure today. D/W Dr. Strong and Jamil. CELY BUTT DO Jun 08, 2017 08:55
--- NOTE | 2017-06-08 09:50 | PDOC ---
PROGRESS NOTES Chief Complaint Chief Complaint Acute hypoxic respir failure, improved 1. Hypoxia: multifactorial, incl COPD, malignancy. 2. 2. Lung mass: primary vs secondary CA; transthoracic bx aborted today due to complete "white-out", targe not identifiable. Bronch yesterday "inconclusive ", BAL obtained, awaiting cytology. d/w Dr Strong: consider mediastinoscopy 3. Metastatic dz: abd wall bx with adenoCA, favoring breast/ (GI), not lung. marker studies pending 4. Afib: cont dig, CCB, BB added 5 OAC: eliquis on hold for procedures 6. Tobaccoism: on nicotine patch 7. Moderate hypoalbuminemia: 2/2 inflammation/malignancy and malnutrition. nutrition consult History of Present Illness History of Present Illness feels better bronch yesterday was unsuccessful, CT surg today with flex bronch or scope, to eval, plan DC soon, if tissue obtain for diagnosis Vitals Vitals Vital Signs Date Time Temp Pulse Resp B/P (MAP) Pulse Ox O2 Delivery O2 Flow Rate FiO2 06/08/17 07:30 97 Nasal Cannula 3.0 06/08/17 07:00 98.2 95 20 123/72 (89) 98.2 Physical Exam Physical Exam RAMIRES, cough with scant sputum. no fever General: Alert, Oriented X3, Cooperative, No acute distress Heart: Regular rate Abdomen: Soft, No hepatosplenomegaly Extremities: No edema Skin: No breakdown Labs LABS Laboratory Tests Test 06/07/17 17:20 Prothrombin Time 13.4 SEC (11.7-14.0) Prothromb Time International Ratio 1.1 (0.8-1.1) Activated Partial Thromboplast Time 32 SEC (24-38) Review of Systems Review of Systems no n/v/d Assessment and Plan Assessmemt and Plan Problems Medical Problems: (1) Acute respiratory failure Status: Acute (2) Pulmonary mass Status: Acute Problems: Comment Review of Relevant I have reviewed the following items dawna (where applicable) has been applied. Labs Laboratory Tests Test 06/07/17 17:20 Prothrombin Time 13.4 SEC (11.7-14.0) Prothromb Time International Ratio 1.1 (0.8-1.1) Activated Partial Thromboplast Time 32 SEC (24-38) Laboratory Tests Test 06/07/17 17:20 Prothrombin Time 13.4 SEC (11.7-14.0) Prothromb Time International Ratio 1.1 (0.8-1.1) Activated Partial Thromboplast Time 32 SEC (24-38) Microbiology 06/02/17 Blood Culture - Final, Complete NO GROWTH AFTER 5 DAYS 06/06/17 AFB Specimen Processing Tissue - Final, Resulted 06/06/17 Acid Fast Bacilli Culture, Resulted Pending 06/06/17 Gram Stain - Final, Resulted Medications Current Medications Iohexol (Omnipaque 300 Mg/ml) 75 ml 1X ONCE IV Last administered on 06/02/17 13:12; Start 06/02/17 at 13:00; Stop 06/02/17 at 13:01; Status DC Info (Do NOT chart on this entry -- for MONITORING) 1 each PRN DAILY PRN MC SEE COMMENTS; Start 06/02/17 at 13:00; Stop 06/03/17 at 14:18; Status DC Ondansetron HCl (Zofran) 4 mg PRN Q8HRS PRN IV NAUSEA/VOMITING; Start 06/02/17 at 13:45; Stop 06/03/17 at 13:44; Status DC Levofloxacin/ Dextrose (Levaquin Per Pharmacy) 1 each PRN DAILY PRN MC SEE COMMENTS; Start 06/02/17 at 13:45 Levofloxacin/ Dextrose 100 ml @ 100 mls/hr Q24H IV Last administered on 13:09; Start 06/02/17 at 14:00 Aspirin (Ecotrin) 81 mg [id number] PO Last administered on 06/07/17 13:08; Start 06/02/17 at 17:00 Sodium Chloride 1,000 ml @ 80 mls/hr [id number] IV Last administered on 01:40; Start 06/02/17 at 16:15 Diltiazem HCl (Cardizem 24hr Cd) 120 mg BID PO ; Start 06/02/17 at 21:00; Stop 06/02/17 at 21:00; Status DC Albuterol/ Ipratropium (Duoneb) 3 ml RTQID NEB Last administered on 06/08/17 07:30; Start 06/02/17 at 20:00 Guaifenesin (Robitussin Dm) 10 ml PRN Q6HRS PRN PO COUGH Last administered on 01:43; Start 06/02/17 at 16:45 Nicotine (Nicoderm Cq 14mg) 1 patch PRN DAILY PRN TD SMOKING CESSATION Last administered on 06/06/17 19:42; Start 06/02/17 at 16:45 Nicotine Polacrilex (Nicorette Gum) 1 each PRN Q1HR PRN BC SMOKING CESSATION; Start 06/02/17 at 16:45 Docusate Sodium (Colace) 100 mg PRN DAILY PRN PO CONSTIPATION; Start 06/02/17 at 16:45 Zolpidem Tartrate (Ambien) 5 mg PRN QHS PRN PO INSOMNIA; Start 06/02/17 at 16: 45 Iohexol (Omnipaque 300 Mg/ml) 75 ml 1X ONCE IV Last administered on 06/03/17 12:46; Start 06/03/17 at 12:00; Stop 06/03/17 at 12:01; Status DC Info (Do NOT chart on this entry -- for MONITORING) 1 each PRN DAILY PRN MC SEE COMMENTS; Start 06/03/17 at 12:00; Stop 06/05/17 at 11:59; Status DC Diltiazem HCl (Cardizem 24hr Cd) 120 mg DAILY PO ; Start 06/03/17 at 13:00; Stop 06/03/17 at 13:00; Status DC Digoxin (Lanoxin) 125 mcg DAILY PO Last administered on 06/07/17 13:08; Start 06/03/17 at 13:00 Diltiazem HCl (Cardizem) 30 mg Q12HR PO Last administered on 06/05/17 12:18; Start 06/03/17 at 21:00; Stop 06/05/17 at 12:46; Status DC Diltiazem HCl (Cardizem) 60 mg TID PO Last administered on 06/06/17 20:50; Start 06/05/17 at 12:45; Stop 06/07/17 at 08:14; Status DC Metoprolol Tartrate (Lopressor) 5 mg 1X ONCE IVP Last administered on 13:10; Start 06/05/17 at 12:45; Stop 06/05/17 at 12:52; Status DC Digoxin (Lanoxin) 125 mcg 1X ONCE IV Last administered on 06/05/17 13:11; Start 06/05/17 at 13:00; Stop 06/05/17 at 13:01; Status DC Montelukast Sodium (Singulair) 10 mg QHS PO Last administered on 06/07/17 20: 21; Start 06/05/17 at 21:00 Metoprolol Tartrate (Lopressor) 5 mg PRN Q6HRS PRN IVP afib w. RVR; Start 06/06 at 10:00 Ringer's Solution 1,000 ml @ 75 mls/hr [id number] IV Last administered on 13:00; Start 06/06/17 at 13:45; Stop 06/07/17 at 14:58; Status DC Diltiazem HCl (Cardizem) 60 mg Q6HRS PO Last administered on 06/08/17 06:14; Start 06/07/17 at 08:00 Lidocaine/Sodium Bicarbonate (Buffered Lidocaine 1%) 20 ml STK-MED ONCE IJ ; Start 06/07/17 at 09:19; Stop 06/07/17 at 09:20; Status DC Fentanyl Citrate (Fentanyl 2ml Vial) 100 mcg STK-MED ONCE .ROUTE ; Start at 09:19; Stop 06/07/17 at 09:20; Status DC Midazolam HCl (Versed) 2 mg STK-MED ONCE .ROUTE ; Start 06/07/17 at 09:19; Stop 06/07/17 at 09:20; Status DC Active Scripts Active Reported Eliquis (Apixaban) 5 Mg Tablet 5 Mg PO BID Diltiazem Hcl Tablet (Diltiazem Hcl) 60 Mg Tablet 120 Mg PO BID Penicillin V Potassium 500 Mg Tablet 1 Tab PO TID Amlodipine-Benazepril 5-20 Mg (Amlodipine Besylate/Benazepril) 1 Each Capsule 1 Cap PO DAILY Hydrochlorothiazide Tablet (Hydrochlorothiazide) 25 Mg Tablet 1 Tab PO DAILY Vitals/I & O Vital Sign - Last 24 Hours 06/07/17 06/07/17 06/07/17 06/07/17 11:00 12:00 13:07 13:08 Temp 97.9 97.9 Pulse 73 73 73 73 Resp 20 B/P (MAP) 128/71 (90) 128/71 128/71 128/71 Pulse Ox 97 O2 Delivery Nasal Cannula O2 Flow Rate 3.0 06/07/17 06/07/17 06/07/17 06/07/17 15:00 16:17 18:23 18:25 Temp 97.9 97.9 Pulse 56 56 Resp 20 B/P (MAP) 112/72 (85) 112/72 Pulse Ox 97 97 98 O2 Delivery Nasal Cannula Nasal Cannula Nasal Cannula O2 Flow Rate 3.0 3.0 3.0 06/07/17 06/07/17 06/07/17 06/07/17 19:00 20:00 23:00 23:54 Temp 98.1 98.5 98.1 98.5 Pulse 79 87 87 Resp 23 24 B/P (MAP) 119/76 (90) 117/71 (86) 117/71 Pulse Ox 96 97 O2 Delivery Nasal Cannula Nasal Cannula Nasal Cannula O2 Flow Rate 4.0 2.0 2.0 06/08/17 06/08/17 06/08/17 06/08/17 02:46 06:14 07:00 07:30 Temp 98.2 98.2 Pulse 93 95 Resp 22 20 B/P (MAP) 135/83 123/72 (89) Pulse Ox 93 97 O2 Delivery Room Air Nasal Cannula O2 Flow Rate 3.0 Intake and Output 06/07/17 06/07/17 06/08/17 15:00 23:00 07:00 Intake Total 350 ml 350 ml 140 ml Output Total 450 ml Balance 350 ml -100 ml 140 ml SHAYNA MANN MD Jun 08, 2017 09:50
[2017-06-08 11:00] VITALS: BP 125/82
[2017-06-08] MEDS ORDERED: LIDOCAINE 2% PF Vial for OR 5 ML VIAL. ONE (11:42)
[2017-06-08] MEDS ORDERED: ROCURONIUM 50 MG/5 ML VIAL. ONE (11:42)
[2017-06-08] MEDS ORDERED: ONDANSETRON PF 4 MG/2 ML VIAL. ONE (11:42)
[2017-06-08] MEDS ORDERED: PROPOFOL 20 ML IV ONE (11:42)
[2017-06-08] MEDS ORDERED: DEXAMETHASONE SOD PHOS 20 MG/5 ML VIAL. ONE (11:42)
[2017-06-08] MEDS ORDERED: fentaNYL PF VIAL 100 MCG/2 ML VIAL ONE (11:42)
[2017-06-08] MEDS ORDERED: IV RINGERS,LACTATED 1000ML 1,000 ML IV SCH (11:59)
[2017-06-08] MEDS ORDERED: ONDANSETRON PF 4 MG/2 ML VIAL. IV PRN (12:00)
[2017-06-08] MEDS ORDERED: LIDOCAINE 1% 1 ML SYRINGE. ID PRN (12:00)
[2017-06-08] MEDS ORDERED: PROCHLORPERAZINE 10 MG/2 ML VIAL. IV PRN (12:00)
[2017-06-08] MEDS ORDERED: MORPHINE SULFATE 2 MG/ML DISP.SYRIN. IV PRN (12:00)
[2017-06-08] MEDS ORDERED: HYDROmorphone 2 MG/ML VIAL IV PRN (12:00)
[2017-06-08] MEDS ORDERED: fentaNYL PF VIAL 100 MCG/2 ML VIAL IV PRN ×2 (12:00)
--- NOTE | 2017-06-08 12:12 | PDOC ---
PULMONARY PROGRESS NOTES Subjective NO NEW COMPLAINTS Vitals Vital Signs Date Time Temp Pulse Resp B/P (MAP) Pulse Ox O2 Delivery O2 Flow Rate FiO2 06/08/17 12:01 98.2 92 15 132/68 95 Nasal Cannula 2 98.2 ROS: No Nausea, No Chest Pain General: Alert HEENT: Other (nc at perrl nose throat clear) Cardiovascular: S1, S2 Abdomen: Soft, Non-tender Neuro Exam: Alert Extremities: No Edema Skin: Warm Labs Laboratory Tests Test 06/07/17 17:20 Prothrombin Time 13.4 SEC (11.7-14.0) Prothromb Time International Ratio 1.1 (0.8-1.1) Activated Partial Thromboplast Time 32 SEC (24-38) Laboratory Tests Test 06/07/17 17:20 Prothrombin Time 13.4 SEC (11.7-14.0) Prothromb Time International Ratio 1.1 (0.8-1.1) Activated Partial Thromboplast Time 32 SEC (24-38) Medications Active Scripts Medications Dose Route/Sig Max Daily Dose Days Date Category Eliquis (Apixaban) 5 Mg Tablet 5 Mg PO BID 06/02/17 Reported Diltiazem Hcl Tablet (Diltiazem Hcl) 60 Mg Tablet 120 Mg PO BID 06/02/17 Reported Penicillin V Potassium 500 Mg Tablet 1 Tab PO TID 05/31/17 Reported Amlodipine-Benazepril 5-20 Mg (Amlodipine Besylate/Benazepril) 1 Each Capsule 1 Cap PO DAILY 05/31/17 Reported Hydrochlorothiazide Tablet (Hydrochlorothiazide) 25 Mg Tablet 1 Tab PO DAILY 05/31/[address] of chest reviewed, Marked consolidation or infiltrative mass (neoplastic) in the left upper lobe. The latter is favored. There is associated hilar and mediastinal adenopathy. There is significant narrowing of an upper lobe bronchus. Bronchoscopy should be considered for additional evaluation. Indeterminate nodules and opacities in the right lung. Left adrenal mass. Metastatic disease should be Impression . 1. Progressive dyspnea secondary to acute exacerbation of chronic obstructive pulmonary disease and postobstructive pneumonia. 2. Abnormal CT of the chest as described above with multiple findings including left upper lobe mass, hilar and mediastinal adenopathy and postobstructive pneumonia. 3. Stage IV adenoca unknown primary 4. Chronic atrial fibrillation, on anticoagulation. 5. Malnutrition, present upon admission, based upon weight loss and low albumin. 6. 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 Butt. 7. Tooth abscess. 8. Tobacco dependence. 9. allergic rhinitis Plan . OR TODAY D/W IR UNABLE TO BIOPSY ANYTHING SEC TO COLLAPSE LUNG D/W DR HELM WILL PROCEED WITH CERVICAL MED BRONCH INCONCLUSIVE D/W DR Ariel BUTT, WILL PROCEED WITH ABOVE ANITBX CYNTHIA COOPER MD Jun 08, 2017 12:12
[2017-06-08] MEDS ORDERED: PHENYLEPHRINE 10 MG/ML VIAL. ONE (13:15)
[2017-06-08] MEDS ORDERED: 0.9 % SODIUM CHLORIDE 50 ML VIAL. IJ ONE (13:15)
[2017-06-08] MEDS ORDERED: GLYCOPYRROLATE 1 MG/5 ML VIAL. ONE (13:43)
[2017-06-08] MEDS ORDERED: NEOSTIGMINE 10 MG/10 ML VIAL. ONE (13:43)
[2017-06-08] MEDS ORDERED: BUPIVACAINE-EPI 0.5%-1:200000 50 ML VIAL. INJ ONE (13:57)
--- NOTE | 2017-06-08 14:15 | PDOC ---
BRIEF OPERATIVE NOTE Date: Jun 08, 2017 Pre-Op Diagnosis Left lung tumor Mediastinal lymphadenopathy Smoker Hypoxia Atrial fibrillation Post-Op Diagnosis Left upper lobe endobronchial tumor Mediastinal lymphadenopathy Smoker Hypoxia Non-small cell lung cancer based on frozen section Atrial fibrillation Procedure Performed Cervical mediastinoscopy with mediastinal lymphadenectomy Flexible bronchoscopy with biopsies Surgeon Noemí Helm MD Cellars Supervisor CHANDA Stewart Anesthesia Type: General Blood Loss 5 mls IV Fluid N/A Urine Output N/A Specimens Obtained Left upper lobe endobronchial tumor Right paratracheal lymph nodes Subcarinal lymph nodes Findings Totally occluding tumor at the origin of the left upper lobe bronchus Mediastinal lymphadenopathy Non-small cell lung cancer on frozen section Complications None NOEMÍ HELM MD Jun 08, 2017 14:15
--- NOTE | 2017-06-08 14:18 | PDOC4 ---
Operative Note Operative Note Date Jun 08, 2017 Preoperative diagnosis Left lung tumor Mediastinal lymphadenopathy Smoker Hypoxia Pneumonia Postoperative diagnosis Left upper lobe endobronchial tumor Mediastinal lymphadenopathy Smoker Hypoxia Pneumonia Non-small cell lung cancer based on frozen section Procedure Cervical mediastinoscopy with mediastinal lymphadenectomy Flexible bronchoscopy with biopsies Surgeon Noemí Helm MD Bi Lead CHANDA Stewart Anesthesia Type General Blood loss 5 mls IV fluids N/A Urine output N/A Specimens Obtained Left upper lobe endobronchial tumor Right paratracheal lymph nodes Subcarinal lymph nodes Findings Totally occluding tumor at the origin of the left upper lobe bronchus Mediastinal lymphadenopathy Non-small cell lung cancer on frozen section Complications None Indication The patient is a 71-year-old female who was recently found to have an abdominal wall mass which was biopsied and came back as an adenocarcinoma consistent with GI/ or breast primary. Mammography was negative for malignancies. CT of the chest also demonstrated a large left upper lobe mass, most likely in an endobronchial left upper lobe tumor with associated atelectasis. There is also significant mediastinal adenopathy. The patient underwent flexible bronchoscopy , which was aborted owing to the patient coughing with associated airway bleeding. She then underwent an IR attempted biopsy which was also unsuccessful. It is possible that she has two primary cancers. The intrathoracic tumor was without diagnosis. A cervical mediastinal endoscopy and flexible bronchoscopy where indicated. The risks, benefits and limitations of procedure explained to the patient who agreed to proceed. Informed consent was obtained. Operation The patient was seen in the preoperative where her ID was confirmed using 2 unique identifies. She has been receiving therapeutic intravenous antibiotics for pneumonia. She was transferred to the operating room and placed supine on the operating table. An arterial line was placed uneventfully. Anesthesia was induced by the anesthesiologist and the airway was secured with an ET tube. A timeout was then performed. We initially proceeded with a flexible bronchoscopy. The scope was advanced through the ET tube into the trachea. The katerin was normal. I then inspected the right main stem bronchus, the upper lobe bronchus and bronchus intermedius and did not identify any abnormalities. The segmental bronchi were also normal. I then proceeded with examining the left airway. I immediately identified a completely obstructing tumor at the origin of the left upper lobe bronchus. Six specimens were obtained and sent for frozen section. Hemostasis was obtained and confirmed. The lower lobe bronchus and segmental bronchi were without any abnormalities. The bronchoscope was then withdrawn. I then proceeded with the cervical mediastinoscopy. A 2 cm transverse incision in the skin crease 2 fingerbreadths above the sternal notch was made. The incision was deepened through the subcutaneous tissues and platysma. The strap muscles were divided at the median raphe. The trachea was identified and the pretracheal fascia was incised. The pretracheal space was then developed digitally. The mediastinal scope was then advanced in the pretracheal space down into the mediastinum. Blunt dissection in the right paratracheal space demonstrated a block of lymph nodes. Specimens were obtained from R4 lymph nodes. I then proceeded with dissecting out the subcarinal space and also identified some lymph nodes. Specimens were also obtained from the subcarinal space. A Raytec was then placed in the mediastinum to obtain hemostasis. There was no bleeding. The mediastinoscope was withdrawn. The strap muscles were reapproximated with 3-0 Vicryl. The subcutaneous tissue was reapproximated with 3-0 Vicryl. The epidermis was closed with 4-0 Monocryl. Dermabond was applied onto the incision. At the end of procedure, the instrument , sponge and needle counts were correct. Anesthesia was reversed, the patient was extubated and transferred to the PACU in stable condition having tolerated the procedure well. The pathologist confirmed that the frozen section demonstrated non-small cell lung cancer. NOEMÍ HELM MD Jun 08, 2017 14:18
--- NOTE | 2017-06-08 14:57 | RAD ---
Single portable upright AP chest radiograph 06/08/2017 Indication: Status post mediastinoscopy and biopsy Comparison: CT chest 06/07/2017 Findings: There is persistent opacification of the left upper lobe which appears the left superior mediastinum and cardiac silhouette. No evidence of significant pneumothorax status post mediastinoscopy and biopsy. Patchy airspace opacity in the peripheral right upper lobe. Impression: 1. Persistent left upper lobe opacification which may represent a combination of mass and atelectasis. 2. No significant pneumothorax status post mediastinoscopy and biopsy. 3. Persistent airspace opacities in the right upper lobe.
[2017-06-08 15:00] VITALS: BP 123/76
[2017-06-08 15:30] VITALS: BP 119/78
[2017-06-08 15:45] VITALS: BP 125/68
[2017-06-08] MEDS ORDERED: DIGO125T PO (16:46)
[2017-06-08] MEDS ORDERED: ASPI-612 PO (16:46)
[2017-06-08] MEDS ORDERED: DILT180C2 PO (16:46)
[2017-06-08 17:52] VITALS: BP 125/68
[2017-06-08] MEDS: ASPIRIN ENTERIC COATED 81 MG TABLET.DR. PO SCH (17:52)
[2017-06-08] MEDS: DIGOXIN 125 MCG TABLET. PO SCH (17:52)
--- NOTE | 2017-06-08 17:59 | PATHOLOGY ---
CYTOPATHOLOGY REPORT CLINICAL HISTORY: VERITO neoplasm . Acute respiratory failure. SPECIMEN(S) RECEIVED: A.Bronchoalveolar lavage, Left lung FINAL DIAGNOSIS: Left lung bronchoalveolar lavage, ThinPrep: - Atypical cells identified suspicious for malignancy. COMMENT: There are atypical cells, present singly and in clusters, which are suspicious for malignancy. The case is also examined by Dr. Nick Carson, cytopathologist, who concurs with the diagnosis. (JPM:mgr; 06/08/2017) PATHOLOGIST: Andrey Goodman M.D. REPORT ELECTRONICALLY SIGNED BY: Andrey Goodman M.D. DATE/TIME: 06/08/2017 17:58 GROSS PATHOLOGY: A. Bronchoalveolar lavage, Left lung: The specimen is submitted unfixed, labeled "Mark Drew". Received by the Cytology Department is five mL of red fluid. One ThinPrep slide was prepared. (clt 06.06.2017) MOLD HOLDER(S): NATAN Carl([facility]) INITIAL CPT CODE(S): A; 28827 Professional services performed by [facility] [place] [address] Technical services performed by [facility] at [address] [place] [address], [address], [place] [address]. PATIENT: MARK DREW /AGE: 12 1945 (Age: 71) SEX: F PATIENT #: [id number] ALT CASE #: SPECIMEN COLLECTION DATE: 06/06/2017 SPECIMEN RECEIVED DATE: 06/06/[address] [facility] [address] [place] [address], [address] [place] [address] PHONE: [phone] DIRECTOR: Merritt Pulliam M.D. * * * END OF REPORT * * *
--- NOTE | 2017-06-09 09:45 | CONS ---
DATE OF CONSULTATION: 06/08/2017 REFERRING PHYSICIAN: Dr. Maribel Acosta. SERVICE: Cardiovascular Surgery. PRIMARY DOCTOR: Dr. Alayna Martinez in [place] in [place]. 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 She has undergone confirmatory biopsy today at intra-operative bronchoscopy and mediastinoscopy. She also has biopsy proven involvement in a subcutaneous mass on the right flank that was biopsied on 06/02/2017. We were asked to see her regarding the role of palliative radiation therapy in her care. ICD 10 34.12, C79.72, C49.9 HISTORY OF PRESENT ILLNESS: The patient is a 71-year-old woman who has noted a sudden onset of increasing shortness of breath just prior to admission with notable periods of shortness of breath prior to this. During this time, she had no chest pain. She had ongoing chronic cough with no hemoptysis. Beginning in November 2016 with dieting effort, she lost 25-30 pounds and since her onset of her increasing shortness of breath, has lost an additional 10 pounds. She has had ongoing fatigue. Following admission, her appetite has improved. She has had no headache, nausea, vomiting, or pain elsewhere outside of oral cavity pain related to dental issues. She recently had a diagnosis of atrial fibrillation and was begun on Eliquis. She also has a new subcutaneous mass that she noted in her right flank. She was seen as an outpatient by Dr. Maribel Acosta, at which time, a chest x-ray revealed a hazy opacity in the left suprahilar region and mammography showed a 1.2 cm partially circumscribed mass in the right breast. CT scan prior to admission on 06/02/2017, revealed central left lung mass extending into the mediastinum associated with narrowing of the left upper lobe airway and partial collapse of the left upper lobe. There was a right abdominal wall mass and multilobulated mass involving left adrenal gland. A CT-guided biopsy of the right flank mass on 06/02/2017 did reveal adenocarcinoma. She did undergo a bronchoscopy on 06/06/2017. The patient coughed. She had oozing and bleeding from the left upper lobe. Dr. Strong could not clear the secretions. There appeared to be mucosal abnormality in the left upper lobe bronchus, but was never able to visualize any endobronchial lesions, exam was inconsclusive. The patient developed desaturation during bronchoscopy. Bronchoalveolar lavage was obtained which revealed atypical cells suspicious for malignancy. She has just undergone mediastinoscopy today on 06/08/2017. At mediastinoscopy, Dr. Cruz did do both mediastinal lymphadenectomy and fibroscopic bronchoscopic biopsies. Bronchial biopsies are compatible with adenocarcinoma. Final report on mediastinal biopsies are still pending. She is now recovering well following the procedure and anticipates going home later today. She has had followup mammography here, which was benign and revealed no malignancy. CT scan of the abdomen and pelvis again revealed the right flank mass, right posterior flank or buttock soft tissue mass, indeterminant lesion in the left liver and left adrenal nodular mass. Bone scan revealed focal uptake in the right second rib. No clear evidence for metastatic disease. PAST MEDICAL HISTORY: Remarkable for hypertension and atrial fibrillation. MEDICATIONS: See hospital list. ALLERGIES: No known allergies. FAMILY HISTORY: Mother, who was a nonsmoker, from lung cancer in her mid 50s. SOCIAL HISTORY: for 49 years. suddenly in February 2017 at age 75. She has 2 adult sons, 1 son, Alexander, living here in [place], [place]. He is a high school special education teacher and one son, Kaveh, in [place], [place], who is a pharmacist. The patient's cell phone [phone], Alexander Arroyo's phone number [phone]. The patient has been a lifelong smoker for 50 years, smoked 2-3 packs a day to the current time of her illness. 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 She is a nondrinker. PHYSICAL EXAMINATION: GENERAL: Revealed a conversant, alert woman in no acute distress. HEENT: Revealed no scleral icterus. LYMPH NODES: She had no cervical or supraclavicular adenopathy. LUNGS: Coarse wheezes in the left field, right field clear. ABDOMEN: Revealed 3 cm mobile right lateral flank mass, nontender, otherwise unremarkable to palpation. EXTREMITIES: Revealed no edema. There was mild finger clubbing. NEUROLOGIC: Revealed no deficits. LABORATORY STUDIES: CBC from 06/06/2017, hemoglobin 11.8, white count 10,900, platelet count 481,000. Chemistry panel revealed normal electrolytes, creatinine 0.6, calcium 7.9. Normal liver function tests. 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 She is symptomatic for airway obstruction in her left lung. A palliative course of radiation therapy to this can improve her airway function and improve her symptoms. Following palliative radiation therapy, she will confer with Dr. Maribel Acosta to discuss the potential role for palliative systemic treatment. I also outlined the need to establish advance directive. I did recommend a DNR status. I recommended her son be the durable power of deputy commonwealth's attorney for her as well to assist in medical decision testing. I anticipate a 10-day course of palliative radiation possibly with a break after 5 days of therapy in an effort to maximize benefit and minimize the risk of symptomatic radiation esophagitis. Thank you for allowing us to participate in her evaluation. I had a thorough discussion with the patient and her son. Sincerely yours, TRAVIS MONTES MD DR: ARON/carmine JOB#: [id number] / [id number] ALAYNA Conn SABATO MD TSIOURIS, ATHANASIOS MD MTDD
--- NOTE | 2017-06-10 17:29 | PATHOLOGY ---
PATHOLOGY REPORT * * * * * * * * FINAL DIAGNOSIS: A. Left upper lobe endobronchial tumor biopsy: - POORLY DIFFERENTIATED ADENOCARCINOMA. SEE COMMENT. B. Lymph node and fibroadipose tissue, right level 4 lymph node: - Sinus histocytosis and focal anthracosis - negative for tumor. C. Lymph node, subcarinal lymph node biopsy: - Metastatic poorly differentiated adenocarcinoma. COMMENT: Sections of the left upper lobe endobronchial tumor biopsy reveal a malignant epithelial neoplasm. The malignant cells are largely present in solid nests which infiltrate a reactive desmoplastic stroma and focally appear to undermine the overlying bronchial epithelium. The malignant cells have ample amounts of pale eosinophilic cytoplasm, and possess enlarged, irregular, moderately to focally markedly pleomorphic hyperchromatic nuclei. The tumor shows a focal suggestion of acinar formation, and a few tumor cells appear to contain intracytoplasmic lumina. There is focal tumor necrosis, and mitotic figures are readily demonstrated. A panel of immunoperoxidase stains is obtained and yields the following results: Cytokeratin 7 (A1): Tumor cells positive Napsin A (A1): Tumor cells focally positive TTF-1 (A1): Tumor cells negative; surface epithelium positive CK5/6 (A1): Tumor cells negative; surface epithelium positive P40 (A1): Few tumor cells positive; basal area of surface epithelium positive P63 (A1): Few tumor cells positive; basal area of surface epithelium positive CDX2 (A1): Tumor cells positive BCA-225 (A1): Tumor cells focally positive The morphologic and immunophenotypic findings are consistent with a diagnosis of poorly differentiated pulmonary adenocarcinoma. The right level 4 lymph node biopsy is negative for tumor. The subcarinal lymph node biopsy shows metastatic poorly differentiated adenocarcinoma having a similar histologic appearance to the endobronchial tumor biopsy. (JPM:mgnorberto/alfa; 06/10/2017) REPORT ELECTRONICALLY SIGNED BY: Andrey Goodman M.D. DATE/TIME: 06/10/2017 17:28 * * * * * * * * GROSS PATHOLOGY: A. The specimen is received fresh for intraoperative consultation and is designated "left upper lobe endobronchial tumor." This consists of approximately eight small nodules of doran and red soft tissue each measuring 0.1 and 0.2 cm in greatest dimension. These are submitted for frozen section as FSA1. The tissue remaining from frozen section is submitted for permanent sections as A1. (JPM:mgnorberto; 06/08/2017) B. The specimen is received in formalin, designated "lymph node, right 4" and consists of three irregular, rodrigues brown segments of tissue, measuring 0.2, 0.4 and 0.8 cm in maximum dimensions. These are submitted in toto in cassette B1. C. The specimen is received in formalin, designated "subcarinal lymph node" and consists of three irregular rodrigues brown segments of soft tissue, measuring 0.3, 0.4 x 0.6 cm. These are submitted in toto in cassette C1. (JPM; 06/09/17) FROZEN SECTION DIAGNOSIS: INTRAOPERATIVE CONSULTATION WITH FROZEN SECTION: (Marry Goodman M.D.) FSA1. Left upper lobe endobronchial biopsy: - NON-SMALL CELL CARCINOMA. The results are reported to Dr. Cruz in the operating room. (JPM:mgr; 06/08/2017) Testing performed [place] [address] INITIAL CPT CODE(S): A; 59246, 37708, 80710, 23740, 70409, 81677, 71866, 45740, 08215, 61379 B; 09975 C; 56626 Professional services [place] [address] Technical services performed by [facility] at [address] [place] [address], [place] [address]. SPECIMEN(S) RECEIVED: A.Left upper lobe endobronchial tumor B.Lymph node right 4 C.Subcarinal lymph node CLINICAL HISTORY: Mediastinal adenopathy with left upper lobe mass PATIENT: MARK DREW /AGE: 12 1945 (Age: 71) PATIENT #: [id number] ALT CASE #: SPECIMEN COLLECTION DATE: 06/08/2017 SPECIMEN RECEIVED DATE: 06/08/2017 [facility] [place] [address] - PHONE: [phone] * * * END OF REPORT * * *
== END 2017-06-08 18:30 | disposition home or self-care (01) | DRG 166 ==
LOC: ER 11:30 → ED HOLD 12:55 → 5 SOUTH 14:59
PROVIDERS: ADMIT Internal Medicine; ATTEND Internal Medicine
PROC: 0B9G8ZX Drainage of Left Upper Lung Lobe, Via Natural or Artificial Opening Endoscopic, Diagnostic (ICD-10-PCS; 2017-06-06)
PROC: 07B74ZX Excision of Thorax Lymphatic, Percutaneous Endoscopic Approach, Diagnostic (ICD-10-PCS; 2017-06-08)
PROC: 0BBG8ZX Excision of Left Upper Lung Lobe, Via Natural or Artificial Opening Endoscopic, Diagnostic (ICD-10-PCS; principal; 2017-06-08 12:30)
DX: C34.12 Malignant neoplasm of upper lobe, left bronchus or lung (principal); J96.01 Acute respiratory failure with hypoxia; E43 Unspecified severe protein-calorie malnutrition; J15.9 Unspecified bacterial pneumonia; I48.92 Unspecified atrial flutter; J44.0 Chronic obstructive pulmonary disease with (acute) lower respiratory infection; J44.1 Chronic obstructive pulmonary disease with (acute) exacerbation; J98.11 Atelectasis; C79.2 Secondary malignant neoplasm of skin; C79.72 Secondary malignant neoplasm of left adrenal gland; E27.8 Other specified disorders of adrenal gland; F17.210 Nicotine dependence, cigarettes, uncomplicated; I10 Essential (primary) hypertension; I48.2 Chronic atrial fibrillation; D47.3 Essential (hemorrhagic) thrombocythemia; E88.09 Other disorders of plasma-protein metabolism, not elsewhere classified; D24.1 Benign neoplasm of right breast; J30.9 Allergic rhinitis, unspecified; R59.0 Localized enlarged lymph nodes; K04.7 Periapical abscess without sinus; M19.90 Unspecified osteoarthritis, unspecified site; T17.990A Other foreign object in respiratory tract, part unspecified in causing asphyxiation, initial encounter; X58.XXXA Exposure to other specified factors, initial encounter; Y93.89 Activity, other specified; Y92.89 Other specified places as the place of occurrence of the external cause; Y99.8 Other external cause status; Z79.01 Long term (current) use of anticoagulants; Z80.1 Family history of malignant neoplasm of trachea, bronchus and lung; Z68.28 Body mass index [BMI] 28.0-28.9, adult
CPT/HCPCS: 20206; 31622; 36415; 36600; 71010; 71250; 71275; 74177; 76641; 76942; 78306; 80053; 82805; 83735; 83880; 84443; 84484; 85027; 85610; 85730; 86850; 86900; 86901; 87040; 87070; 87116; 87205; 88112; 88305; 88331; 88341; 88342; 88361; 93005; 93306; 94250; 94620; 94640; 94760; 96374; 99406; A9503; C1887; G0206; J1100; J1160; J1956; J2001; J2405; J2704; J2710; J3010; J3490; J7030; J7120; J7620; Q9967; 77065; 97110; 97116; 97530; 99285-25